=== PATIENT | female | born 1995 | race Caucasian/White ===

== ENCOUNTER 2017-03-02 10:44 | Emergency (ER) | payer OTHER ==
[~2017-03-02] VITALS: Ht 167.6 cm; Wt 68.0 kg
[2017-03-02] MEDS ORDERED: IBUPROFEN400 MG PO (10:57)
--- NOTE | 2017-03-03 08:18 | EKG ---
[facility] [address] [facility] [place] [address] Signed Normal sinus rhythm Normal ECG No previous ECGs available Confirmed by VICKI EDMOND MD ([id number] on 03/03/2017 8:17:49 AM Electronically Signed By: VICKI EDMOND MD 03/03/17 0818 PATIENT NAME: SAUL NICHOLS Electrocardiogram DATE OF : [birth year] PHYSICIAN: VICKI EDMOND MD REPORT #: [id number] REPORT IS CONFIDENTIAL AND NOT TO BE RELEASED WITHOUT AUTHORIZATION
== END 2017-03-02 12:05 | disposition home or self-care (01) ==
LOC: ED 10:44
DX: R10.13 Epigastric pain (principal); Z90.49 Acquired absence of other specified parts of digestive tract
CPT/HCPCS: 93005; 93010; 99283

== ENCOUNTER 2019-12-06 15:24 | Inpatient (IN) | payer OTHER ==
[~2019-12-06] VITALS: Ht 175.3 cm; Wt 108.0 kg
--- OUTSIDE RECORDS SUMMARY | ~2019-12-06 | XMS | Encounter Summary ---
Demographics + + + | Address | [address] | | | [place] [address] | + + + | Home Phone | | + + + | Preferred Language | Unknown | + + + | Marital Status | | + + + | Zoroastrian Affiliation | [id number] | + + + | Race | Unknown | + + + | Ethnic Group | Unknown | + + + Author + + + | Author | [facility] | | | and [place] | + + + | Organization | [facility] | | | and [place] | + + + | Address | Unknown | + + + | Phone | Unavailable | + + + Support + + + + + | Name | Relationship | Address | Phone | + + + + + | Trevin Rocha | ECON | [address] | | | | | [place] [address] | | + + + + + Care Team Providers + +------+ + | Care Dietary Cook Name | Role | Phone | + +------+ + | Freddie Sears DO | PCP | | + +------+ + Reason for Referral (Routine) +--------+--------+ + + + + | Status | Reason | Specialty | Diagnoses / | Referred By | Referred To | | | | | Procedures | Contact | Contact | +--------+--------+ + + + + | Closed | | | Diagnoses | [facility], | | | | | | Delivery | Francis Balderrama MD | | | | | | normal | [address] | | | | | | Procedures | [address] | | | | | | DME: Breast | [place], | | | | | | [place] | [place] | | | | | | | [address] | | | | | | | Phone: | | | | | | | [phone] | | | | | | | Fax: | | | | | | | [phone] | | +--------+--------+ + + + + Evaluate & Treat (Routine) +--------+ + + + + + | Status | Reason | Specialty | Diagnoses / | Referred By | Referred To | | | | | Procedures | Contact | Contact | +--------+ + + + + + | Closed | Specialty | | Diagnoses | [facility], | | | | Services | Services / | Delivery | Francis Balderrama MD | | | | Required | | normal | [address] | | | | | and | | [address] | | | | | | | [place], | | | | | | | [place] | | | | | | | [address] | | | | | | | Phone: | | | | | | | [phone] | | | | | | | Fax: | | | | | | | [phone] | | +--------+ + + + + + (Routine) +--------+ + + + + + | Status | Reason | Specialty | Diagnoses / | Referred By | Referred To | | | | | Procedures | Contact | Contact | +--------+ + + + + + | Closed | Specialty | | Diagnoses | [facility], | | | | Services | and | Delivery | Francis Balderrama MD | | | | Required | | normal | [address] | | | | | | | [address] | | | | | | | [place], | | | | | | | [place] | | | | | | | [address] | | | | | | | Phone: | | | | | | | [phone] | | | | | | | Fax: | | | | | | | [phone] | | +--------+ + + + + + Reason for Visit Auth/Cert +--------+--------+ + + + + | Status | Reason | Specialty | Diagnoses / | Referred By | Referred To | | | | | Procedures | Contact | Contact | +--------+--------+ + + + + | | | | | | | +--------+--------+ + + + + Encounter Details +--------+ + + + + | Date | Type | Department | Care Team | Description | +--------+ + + + + | 05/08/ | Hospital | [facility] | Francis Plata | Delivery normal | | 2016 - | Encounter | [facility] | F, MD [address] | (Primary Dx) | | | | [address] | [address] [place], [place] | | | 05/10/ | | [place], [place] | [address] | | | 2015 | | [address] | [phone] | | | | | [phone] | | | +--------+ + + + + Social History + +-------+ +--------+------+ | Tobacco Use | Types | Packs/Day | Years | Date | | | | | Used | | + +-------+ +--------+------+ | Never Smoker | | | | | + +-------+ +--------+------+ + +---+---+---+ | Smokeless Tobacco: | | | | | Never Used | | | | + +---+---+---+ + + +---------+ + | Alcohol Use | Drinks/Week | oz/Week | Comments | + + +---------+ + | No | | | | + + +---------+ + + + + | Sex Assigned at | Date Recorded | | | | + + + | Not on file | | + + + documented as of this encounter Last Filed Vital Signs + + + + + | Vital Sign | Reading | Time Taken | Comments | + + + + + | Blood Pressure | 131/66 | 05/10/2016 8:00 PM | | | | | PST | | + + + + + | Pulse | 87 | 05/10/2016 8:00 PM | | | | | PST | | + + + + + | Temperature | 36.9 C (98.4 F) | 05/10/2016 8:00 PM | | | | | PST | | + + + + + | Respiratory Rate | 18 | 05/10/2016 8:00 PM | | | | | PST | | + + + + + | Oxygen Saturation | 98% | 05/09/2016 4:21 PM | | | | | PST | | + + + + + | Inhaled Oxygen | - | - | | | Concentration | | | | + + + + + | Weight | 104.3 kg (230 lb) | 05/08/2016 7:46 AM | | | | | PST | | + + + + + | Height | 175.3 cm (5' 9") | 05/08/2016 7:10 AM | | | | | PST | | + + + + + | Body Mass Index | 33.97 | 05/08/2016 7:10 AM | | | | | PST | | + + + + + documented in this encounter Discharge Summaries Liliam Degroot DO - 05/10/2016 8:35 AM PST DISCHARGE SUMMARY-OBSTETRICS Date of Admission: 05/08/2016 Date of Discharge: 05/10/2016 ATTENDING CLINICIAN: Francis Plata MD [employer] BUSINESS SEGMENT LEADER: Freddie Sears DO HISTORY OF PRESENT ILLNESS 21 y.o. with IUP @ 41 wks presents for IOL for late term. HOSPITAL COURSE: Fran Roche is a 21 y.o.-year-old, now female (Estimated Date of Deliv arnaldo: None noted.) who had a delivered by Vaginal, Spontaneous Delivery . At 05/08/2016 153 8 Fran bore a living male 3.339 kg (7 lb 5.8 oz) infant, . scores were 7 /9 a t one and five minutes respectively. Estimated Blood loss was WNL. Her labor course was uncomplicated. Her course was unremarkable. Pain was well controlled and she was ambulating we ll without any difficulty. She had normal bowel an urinary function. Her vital signs were stable and afebrile. Nursing was going well. She was discharged home in stable condition . She was given written post operative instructions in regards to her activity level and haynes itations. DISPOSITION: home CONDITION UPON DISCHARGE: stable DISCHARGE MEDICATIONS: Discharge Medications New Medications Details ibuprofen 600 MG tablet Take 1 tablet by mouth every 8 hours as needed for Pain. aka: ADVIL,MOTRIN Unchanged Medications Details 27-0.8 mg multivitamin tablet Take 1 tablet by mouth Daily. Discontinued Medications PERMETHRIN EX promethazine 25 mg tablet aka: PHENERGAN There is no immunization history for the selected administration types on file [facility]. FOLLOWUP: 6 weeks PRECAUTIONS: Pelvic rest for 6 weeks DIET: Regular Electronically Signed by: Liliam Degroot DO 05/10/2016 8:35 Francis Jeffries MD - 05/09/2016 5:59 AM PST DISCHARGE SUMMARY-OBSTETRICS Date of Admission: 05/08/2016 Date of Discharge: 05/09/2016 ATTENDING CLINICIAN: Francis Plata MD [employer] BUSINESS SEGMENT LEADER: Freddie Sears DO HISTORY OF PRESENT ILLNESS 21 y.o. Unknown presented for postdates induction of labor. HOSPITAL COURSE: Fran Roche is a 21 y.o.-year-old, now female (Estimated Date of Deliv arnaldo: None noted.) who had a delivered by Vaginal, Spontaneous Delivery . At 05/08/2016 153 8 Fran bore a living male 3.339 kg (7 lb 5.8 oz) infant, . scores were 7 /9 a t one and five minutes respectively. Estimated Blood loss was normal. Her labor course was uncomplicated. Her course was unremarkable. Pain was well controlled and she was ambulating we ll without any difficulty. She had normal bowel an urinary function. Her vital signs were stable and afebrile. Nursing was going well. She was discharged home in stable condition . She was given written post operative instructions in regards to her activity level and haynes itations. DISPOSITION: home CONDITION UPON DISCHARGE: stable DISCHARGE MEDICATIONS: Discharge Medications New Medications Details ibuprofen 600 MG tablet Take 1 tablet by mouth every 8 hours as needed for Pain. aka: ADVIL,MOTRIN Unchanged Medications Details 27-0.8 mg multivitamin tablet Take 1 tablet by mouth Daily. Discontinued Medications PERMETHRIN EX promethazine 25 mg tablet aka: PHENERGAN There is no immunization history for the selected administration types on file [facility]. FOLLOWUP: 6 weeks PRECAUTIONS: Pelvic rest for 6 weeks DIET: Regular Electronically Signed by: Francis Plata MD 05/09/2016 5:59 documented in this encounter Discharge Instructions Instructions Velia Lewis RN - 05/10/2016POSTPARTUM DISCHARGE INSTRUCTIONS Warning Signs Check List Notify your clinician immediately if you are experiencing any of the following: Heavy bleeding from the vagina (blood is bright-red and soaks a pad in an hour or less) Normal bleeding decreases in amount over time and is: Bright-red (lasts two to three days). Pinkish or brown (lasts from about the third day to the tenth day). Creamy or yellow (usually lasts one to two weeks). Discharge from the vagina that has a bad odor. Temperature over 100.4 (38 C) or you feel cold and have the chills (you are shiv ering). Urination that is painful, difficult, or too frequent. Difficulty having a bowel movement. Painful, very red, and swollen incision or leaking of any fluids. Breasts that are full and or/painful (swollen, hot, tight, itchy, lumpy, shiny, flat nip ples, or sore spots with flu-like symptoms). Pain that becomes worse and unrelieved by medication. Trouble breathing, dizziness, or faintness. Crying spells or mood swings that feel out of control. Pain, redness, warmth or firmness in the lower calf. Unusual or excessive swelling in your face or hands. Severe or constant headaches. Blurred vision or spots in front of your eyes. Sudden weight gain of more than one pound a day for several days. Persistent pain in the upper right part of your abdomen. Activity/Exercise Do not drive while you are taking narcotics. If you had a section, try driving maneuvers while parked to ensure no increase in incisional pain. Gradually increase your daily activities until you are back to your normal routine. Rest frequently. Remember to continue to drink plenty of fluids and eat frequently if yo u are . Heavy lifting or other strenuous exertion is unlikely to disrupt your incision or lacera tion but it may cause an increase in pain. Your provider will tell you if additional restric tions apply to you. Bowels and Regularity constipation is common; you make take Docusate sodium or Milk of Magnesia to alleviate discomfort Painful bowel movements or rectal pain may result from hemorrhoids; use Tucks and/or top ical treatment like Anusol-HC. Sitz baths can also help. Normal Bleeding Vaginal spotting may last up to six weeks. It is important that you change your pad on a regular basis. Your menstrual period may occur as early as six weeks to two months after your delivery. Care of Stitches You should feel less discomfort every day from your stitches. Perineal stitches will dissolve within 2-4 weeks. You may shower or bathe with stitches; drip plain or soapy water over the incision and d ry gently with a clean towel. If you have zenia you may shower (no tub bathing), and dry g ently with a clean towel. If you had any zenia that were not removed during your hospitalization they will need to be removed in your provider's office. Steri-strips may fall off on their own or can be removed at post-op visit. Sex/Douching/Tampons Do not place anything in the vagina for the first six weeks after delivery. Your healthcare provider may advise you to wait up to six weeks for intercourse. Once th e bleeding has stopped, it is alright to have intercourse if you feel ready. Keep in mind yo u are at risk of getting . You may find your vagina feels dry, making sex uncomfortable. This can last several errol hs due to changing hormone levels. To help lubricate your vagina, you may purchase a waterso luble lubricant (e.g., Astroglide) from your local drug store. This will help make intercour se more comfortable. AttachmentsThe following attachments cannot be sent through Care Everywhere., BREAST C ARE AFTER (ALBANIAN)YOUR MILK, EXPRESSING (ALBANIAN)EXPRESSED MILK, STORING (ALBANIAN)document ed in this encounter Medications at Time of Discharge + + + +---------+ + + | Medication | Sig | Dispensed | Refills | Start | End Date | | | | | | Date | | + + + +---------+ + + | ibuprofen | Take 1 tablet by | 30 | 1 | 05/09/20 | | | (ADVIL,MOTRIN) 600 | mouth every 8 hours | tablet | | 16 | 9 | | MG tablet | as needed for Pain. | | | | | + + + +---------+ + + | 27-0.8 mg | Take 1 tablet by | | 0 | | | | multivitamin tablet | mouth Daily. | | | | 9 | + + + +---------+ + + documented as of this encounter Progress Notes Liliam Degroot DO - 05/10/2016 8:31 AM PSTObstetrjones Progres s Note Subjective: Patient doing well without any concerns Pain: minimal : difficulty with latch, using sullivan Lochia: Minimal Ambulating: Without any difficulty or dizziness Passing flatus. Baby is staying today for jaundice. Maternal VS's: BP: 111/56 mmHg Pulse: 72 Temp: 36.3 C (97.3 F) Exam: General: No acute distress, baby at bedside under bili lights CV: RRR Lungs: CTA Abdomen: Soft, non-tender, non-distended Fundus: Firm, below the umbilicus Extremities: No calf tenderness, appropriate edema Assesment/Plan: Day #2 s/p normal spontaneous vaginal delivery -recovering well stable for discharge -will discharge to outpatient boarder status Electronically Signed by: Liliam Degroot DO 05/10/2016 8:32 Francis Clemente MD - 05/09 5:57 AM PSTObstetrics Progress Note Subjective: Patient doing well without any concerns Pain: Well controlled : Needing some help Lochia: Minimal Ambulating: Without any difficulty or dizziness Patient requests discharge home Maternal VS's: BP: 119/65 mmHg Pulse: 68 Temp: 36.7 C (98 F) Exam: General: No acute distress, baby at bedside Abdomen: Soft, non-tender, non-distended Fundus: Firm, below the umbilicus Extremities: No calf tenderness, appropriate edema AssesmentPlan: Day #1 s/p normal spontaneous vaginal delivery recovering well stable for discha rge Some trouble w/ - assist today -d/c home with instructions and follow-up scheduled Electronically Signed by: Francis Plata MD 05/09/2016 5:57 Francis Clemente MD - 05/08/2016 2:25 PM PS TCtx's strong. SVE: 5/100/+1 per RN @1400 FHT-continued good LTV,occa accels,intermittent tracing, occa variable decels ---> cont same Francis Dial MD - 05/08/2016 12:36 PM PSTThe patient reports that her contractions are v arnaldo strong over the past hour or so. Her oxytocin is at 10. She has been sometime in the hot tub. The nurse just checked her and said she was 3/100/+1/vertex. She is lopez every 2-3 minutes. She is receiving penicillin for GBS. Her tracing shows a normal baseline with excellent variability. She is having sponta neous accelerations and we are seeing frequent but not repetitive mild variable deceleration s. Impression: Overall stable fetus frequent category 2 tracing but with continued good variability. Entering active labor strong uterine contractions GBS positive status post penicillin Plan: Continue oxytocin. Continuous monitoring. Continue with penicillin I anticipate a vaginal . 1 2:39 PM Francis Clemente MD - 05/08/2016 8:56 AM PSTPt c/o mild almost moderate UCtx. Ctx q 2-3 min-not tracing well sve not rechecked Pitocin @6 Variable decels noted earlier-resolved w/ position change ---> Cont. same doc umented in this encounter H&P Notes Francis Plata MD - 05/08/2016 7:44 AM PST OB Admission History & Physical PATIENT NAME: Fran Roche : 1995 ADMISSION DATE: 05/08/2016 6:36 REASON FOR ADMISSION:21 yo G1 @ 41 weeks. GBS+. Admit for postdates indxn. 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 at Unknown presents in active labor. She reports good movements and denies loss of fluid or vaginal bleeding. Review of Systems: Obstetrical: Patient denies headaches, visual changes, or epigastric pain Constitutional: Negative for fever, chills and activity change. Head/Ears: Negative for dizziness, lightheadedness. Respiratory: Negative for chest tightness and shortness of breath. Cardiovascular: Negative for chest pain and leg swelling. Gastrointestinal: Negative for diarrhea, constipation and abdominal distention. Genitourinary: Negative for dysuria and frequency. Musculoskeletal: Negative for back pain and joint swelling. Neurological: Negative for tremors and weakness. Hematological: Does not bruise/bleed easily. Psychiatric/Behavioral: Negative for sleep disturbance and dysphoric mood. Past Medical History: No past medical history on file. Surgical History: No past surgical history on file. Family History: No family history on file. Prior To Admission Medications: Prescriptions prior to admission Medication Sig Dispense Refill PERMETHRIN EX LOTN - as directed 27-0.8 mg multivitamin tablet Take 1 tablet by mouth Daily. promethazine (PHENERGAN) 25 mg tablet Take 1 tablet by mouth every 4 hours as needed. 2 0 tablet 0 Allergies: No Known Allergies Social History: The pt reports that she has never smoked. She has never used smokeless tobacco. She report s that she does not drink alcohol or use illicit drugs. LABS: PHYSICAL EXAM: Vital Signs on Arrival: Temp: 36.6 C (97.9 F) Pulse: 88 Resp: 16 SpO2: 99 % Vitals Signs (most recent): Temp: 36.6 C (97.9 F) Pulse: 88 Resp: 16 SpO2: 99 % Admission Weight: Weight: 104.327 kg (230 lb) General: Alert and oriented HEENT: No abnormality noted Lungs: Clear, no respiratory distress Heart: Regular rate and rhythm, Abdomen: Gravid, nontender, heart tones obtained Extremities: Trace edema, normal pulses Estimated Weight: 3600gm Monitorin moderate variability no decelerations, Category 1 Moriarty: uterine contractions-occa Vaginal Exam (Last assessment): 2.5/90/0-+1. AROM scant clear fluid IMPRESSION: 21 y.o. @41 weeks PLAN: Amniotomy/Pitocin Indxn PCN for GBS Anticipate documented in this encounter Consult Notes Khushbu nA RN - 05/08/2016 5:36 PM PSTThe mother shown how to support her baby during . The was able to obtain and maintained his latch. The mother i s able to express colostrum easily. The infant swallowed with every 2 to 4 suckles. The mot her encouraged to continue to offer both breasts at each feeding, to feed the infant per dem and and to wait no longer then three hours between feedings. documented in this encounter Miscellaneous Notes Plan of Care - Monica Wooten RN - 05/10/2016 11:21 PM PSTProblem: Patient Care Ov erview (Adult) Goal: Care Team Goals & Evaluation PROBLEM-RELATED GOALS: Pt will maintain pain goal of 3/10 using pharmacological and non pharmacological methods Pt will remain hemodynamically stable. Pt will remain free of signs and symptoms of infection STRATEGY TO ACHIEVE GOALS: 1. Support Life/Role Transition (PER CPG) Develop trust relationship/rapport Use a family-focused approach Incorporate cultural beliefs/rituals/practices Encourage/answer questions Provide reassurance regarding infant s well-being Involve patient/partner in decision making Facilitate private time Encourage attachment behaviors; Allow parent(s) to provide care when possible 2. Minimize/Manage Infection Risk (PER CPG) Promote hand and personal hygiene Provide aseptic incision care Discontinue indwelling urethral catheter as soon as possible Assist to void/Encourage frequent voiding Monitor for fundal displacement/palpable bladder Promote adequate fluid and nutritional intake. 3. Prevent/Manage DVT/VTE Risk (PER CPG) Encourage/assist with early ambulation. Assess for VTE risk utilizing a standardized tool Initiate/maintain compression therapy Encourage both active and passive leg exercises while in bed, if unable to ambulate 4. Monitor/Manage Bleeding (PER CPG) Encourage early Watch for changes in blood pressure, heart rate and urine output Continue uterine fundal massage, if fundus remains boggy Anticipate administration of uterotonic medications Accurately assess amount of blood loss (e.g., weigh perineal pads) Check for pooling on underpad RESTRAINT-RELATED GOALS: STRATEGIES TO ACHIEVE RESTRAINT GOALS: Goal Evaluation: Patient has denied pain. Rx for pain medication given earlier. Spouse filled. Discharge education given. Pt reports understanding. Fundus is firm u-1 bleeding is light. Denies d izziness and lightheadedness when ambulating. Independent with self care. No s/s of infecti on. lan of Care - Stephanie Ervin RN - 05/09/2016 5:42 PM PSTProblem: Patient Care Overview (Adult) Goal: Care Team Goals & Evaluation PROBLEM-RELATED GOALS: Pt will maintain pain goal of 3/10 using pharmacological and non pharmacological methods Pt will remain hemodynamically stable. Pt will remain free of signs and symptoms of infection STRATEGY TO ACHIEVE GOALS: 1. Support Life/Role Transition (PER CPG) Develop trust relationship/rapport Use a family-focused approach Incorporate cultural beliefs/rituals/practices Encourage/answer questions Provide reassurance regarding s well-being Involve patient/partner in decision making Facilitate private time Encourage attachment behaviors; Allow parent(s) to provide care when possible 2. Minimize/Manage Infection Risk (PER CPG) Promote hand and personal hygiene Provide aseptic incision care Discontinue indwelling urethral catheter as soon as possible Assist to void/Encourage frequent voiding Monitor for fundal displacement/palpable bladder Promote adequate fluid and nutritional intake. 3. Prevent/Manage DVT/VTE Risk (PER CPG) Encourage/assist with early ambulation. Assess for VTE risk utilizing a standardized tool Initiate/maintain compression therapy Encourage both active and passive leg exercises while in bed, if unable to ambulate 4. Monitor/Manage Bleeding (PER CPG) Encourage early Watch for changes in blood pressure, heart rate and urine output Continue uterine fundal massage, if fundus remains boggy Anticipate administration of uterotonic medications Accurately assess amount of blood loss (e.g., weigh perineal pads) Check for pooling on underpad RESTRAINT-RELATED GOALS: STRATEGIES TO ACHIEVE RESTRAINT GOALS: Outcome: Improving Goal Evaluation: Fran has denied pain with use of routine ibuprofen. She demonstrates hemodynamic stabil ity with fundus remaining firn, flow lightening, and vitals stable. She has established an i mproved feeding plan for her baby and is now and pumping with evidence of good colostrum supply. lan of Care - Kayla Pinto RN - 05/09/2016 4:14 AM PSTProblem: Patient Care Overview (Adult) Goal: Care Team Goals & Evaluation PROBLEM-RELATED GOALS: Pt will maintain pain goal of 3/10 using pharmacological and non pharmacological methods Pt will remain hemodynamically stable. Pt will remain free of signs and symptoms of infection STRATEGY TO ACHIEVE GOALS: 1. Support Life/Role Transition (PER CPG) Develop trust relationship/rapport Use a family-focused approach Incorporate cultural beliefs/rituals/practices Encourage/answer questions Provide reassurance regarding infant s well-being Involve patient/partner in decision making Facilitate private time Encourage attachment behaviors; Allow parent(s) to provide care when possible 2. Minimize/Manage Infection Risk (PER CPG) Promote hand and personal hygiene Provide aseptic incision care Discontinue indwelling urethral catheter as soon as possible Assist to void/Encourage frequent voiding Monitor for fundal displacement/palpable bladder Promote adequate fluid and nutritional intake. 3. Prevent/Manage DVT/VTE Risk (PER CPG) Encourage/assist with early ambulation. Assess for VTE risk utilizing a standardized tool Initiate/maintain compression therapy Encourage both active and passive leg exercises while in bed, if unable to ambulate 4. Monitor/Manage Bleeding (PER CPG) Encourage early Watch for changes in blood pressure, heart rate and urine output Continue uterine fundal massage, if fundus remains boggy Anticipate administration of uterotonic medications Accurately assess amount of blood loss (e.g., weigh perineal pads) Check for pooling on underpad RESTRAINT-RELATED GOALS: STRATEGIES TO ACHIEVE RESTRAINT GOALS: Outcome: Improving Goal Evaluation: Fran is doing all of baby care, denies needing assistance. Requested to bottle feed bab y. Encouraged her to continue with . Teaching done on benefits of . Pt reports feeling overwhelmed and tired. Plans on bottle feeding for now and will see how she feels in am. Baby to nursery for parental rest. Denies pain, FF/U with mod -light vag b leeding. lan of Care - Julia keithtylerKayla RN - 05/08/2016 9:48 PM PSTFran has beendoing all for baby care, atte ntive to baby's needs. Asking appropriate questions. lan of Care - Pablo Mcmahon RN - 05/08/2016 6:51 PM PSTPt showered and moved to post room. at bedside. &D Delivery Note - Francis Plata MD - 4:03 PM PST OBSTETRICAL DELIVERY NOTE Fran Roche : 1995 ADMISSION DATE AND TIME05/08/2016 6:36 DELIVERY SUMMARY Information for the patient's : Makenzie Roche [[id number]] Delivery Information for Makenzie Roche Labor Events: Rupture Date: 05/08/2016 Rupture Time: 724 Rupture Type: Artificial Rupture Of Membranes Fluid Color: Clear Labor Type: Induction - without cervical ripening Complications: Antibiotics? Yes Antibiotic: Antibiotic indication: Maternal Steroids? No Maternal Steroid: Induction: Oxytocin Induction indications: Greater than or equal to 41 weeks Induction comments: Delivery: Delivery Type: Vaginal, Spontaneous Delivery Delivery Type Comments: Presentation/Position: Presentation: Vertex Position: Lacerations: Episiotomy: Perineal lacerations: 1st Perineal lacerations repaired? Yes Blood Loss: Blood loss (ml) Anesthesia/Analgesia method: None Placenta: Placenta date/time: 05/08/2016 1542 Removal: Spontaneous Appearance: Intact Cultures obtained: No Placenta comments: Cord: Umbilical cord: # of vessels: 3 Vessels Delayed cord clamping: Yes Cord comments: Cord gases sent: No Cord blood disposition: Lab Stem cell collection: No Umbilical cord complications: Cord Intervention: Clamped & cut: Reduced: Cord around: Number of loops: Providers: Delivery Clinician: Francis Plata Other Providers: Pablo Mcmahon Taryn J Delivery Nurse Delivery Nurse : Sex & GA: male Gestational Age: <None> Date/Time of : 05/08/2016 / 1538 Measurements: Weight: 7 lb 5.8 oz (3339 g) Height: 21.5" Head circumference: 34.9 cm Chest circumference: 33 cm Living?: Yes Resuscitation: Resuscitation comments: APGARS One minute Five minutes Ten minutes Skin color: 0 1 Heart rate: 2 2 Grimace: 2 2 Muscle tone: 2 2 Breathin 2 Totals: 7 9 Francis Plata MD The patient is a 21-year-old G1 now P1. She presented at 41 weeks for a postdates labor in duction. She was 2 cm ddilated upon presentation. This morning, I performed amniotomy and clear fluid was noted. She was started on oxytocin. She had good variability throughout l abor but did have frequent variable decelerations. She did make steady progress through lab or. She made it to complete dilation and began to push Effectively. During the course of stage I labor, she received IV analgesics for pain relief only. I was called and she was 2 pushes away from delivery. She delivered a viable male over an intact perineum. After deli very of the head, no nuchal cord was noted. The anterior and posterior shoulders delivered without difficulty followed by rest the body. After delivery of the , the child was placed on the maternal abdomen. After a little over minute, the cord was doubly clamped an d cut. A three-vessel cord was noted. Approximately 4 minutes after delivery, her placenta delivered in a controlled fashion. The placenta was intact. She did suffer bilateral vagi nal lacerations first degree that were repaired with 3-0 Vicryl. Normal blood loss. No co mplications. lan of Narcisa - Pablo Mcmahon RN - 05/08/2016 3:48 PM PST15:38 Spontaneous vaginal delivery of vigorous viable boy. 15:41 Spontaneous delivery of intact placentaElectronically signed by AMITA Sage t 05/08/2016 5:22 PM PSTPlan of Eva Das RN - 05/08/2016 1:09 PM PSTFran is in the [facility] with the telemetry FHR dissappears during UC comes To the baseline. P STPlan of Pablo Fan RN - 05/08/2016 11:28 AM [facility]Pt [facility] Family at bedside. RX for pain with Fentanyl 50 jeff, IV. lan of Pablo Fan RN - 05/08/2016 10:01 AM PSTPt up walking in carbajal, telemetry EFM monitoring on. lan of Pablo Fan RN - 05/08/2016 9:[address] Plata re: heart rate tracing lan Pablo Lowe RN - 05/08/2016 8 :[address] Plata re: heart rate tracing lan of Pablo Fan RN - 05/08/2016 6 :45 AM PSTPt declines epidural at this time, education provided. Continues to decline. Con sent for induction on in chart 11: 21 AM PSTdocumented in this encounter Plan of Treatment + + +--------+ + + | Name | Type | Priori | Associated Diagnoses | Order Schedule | | | | ty | | | + + +--------+ + + | Amb referral to | Outpatient | Routin | Delivery normal | 1 Occurrences | | | Referral | e | | starting 05/09/2016 | | | | | | until 05/08/2017 | + + +--------+ + + | Ambulatory referral | Outpatient | Routin | Delivery normal | 1 Occurrences | | to | Referral | e | | starting 05/09/2016 | | | | | | until 05/08/2017 | + + +--------+ + + documented as of this encounter Procedures + +--------+ + + + | Procedure Name | Priori | Date/Time | Associated Diagnosis | Comments | | | ty | | | | + +--------+ + + + | CBC NO DIFFERENTIAL | Routin | 05/09/2016 | | Results for this | | | e | 6:27 AM | | procedure are in the | | | | PST | | results section. | + +--------+ + + + | CBC NO DIFFERENTIAL | STAT | 05/08/2016 | | Results for this | | | | 7:17 AM | | procedure are in the | | | | PST | | results section. | + +--------+ + + + | TYPE AND SCREEN | Routin | 05/08/2016 | | Results for this | | | e | 7:17 AM | | procedure are in the | | | | PST | | results section. | + +--------+ + + + | LABS - EXTERNAL SCAN | | 04/08/2016 | | Results for this | | | | 12:00 AM | | procedure are in the | | | | PST | | results section. | + +--------+ + + + documented in this encounter Results CBC no Differential (05/09/2016 6:27 AM PST) + + + + + + | Component | Value | Ref Range | Performed | Pathologist | | | | | At | Signature | + + + + + + | White Blood | 17.2 (H) | 4.0 - 11.0 K/uL | [facility] | | | Cells | | | [facility] | | | | | | [facility] | | | | | [facility] - | | | | | | LABORATORY | | + + + + + + | Red Blood | 4.08 | 3.70 - 5.20 | [facility] | | | Cells | | M/uL | [facility] | | | | | | [facility] | | | | | | [facility] - | | | | | | LABORATORY | | + + + + + + | Hemoglobin | 12.9 | 11.5 - 16.0 | [facility] | | | | | g/dL | [facility] | | | | | | [facility] | | | | | | [facility] - | | | | | | LABORATORY | | + + + + + + | Hematocrit | 37.5 | 34.0 - 47.0 % | [facility] | | | | | | [facility] | | | | | | [facility] | | | | | | [facility] - | | | | | | LABORATORY | | + + + + + + | MCV | 91.9 | 83.0 - 101.0 fL | [facility] | | | | | | [facility] | | | | | | [facility] | | | | | | [facility] - | | | | | | LABORATORY | | + + + + + + | MCH | 31.5 | 28.0 - 35.0 pg | [facility] | | | | | | [facility] | | | | | | [facility] | | | | | | [facility] - | | | | | | LABORATORY | | + + + + + + | MCHC | 34.3 | 32.0 - 36.0 | [facility] | | | | | g/dL | [facility] | | | | | | [facility] | | | | | | [facility] - | | | | | | LABORATORY | | + + + + + + | RDW-CV | 13.1 | <15.0 % | [facility] | | | | | | [facility] | | | | | | [facility] | | | | | | [facility] - | | | | | | LABORATORY | | + + + + + + | Platelet | 197 | 140 - 440 K/uL | [facility] | | | Count | | | [facility] | | | | | | [facility] | | | | | | C[facility] - | | | | | | LABORATORY | | + + + + + + | MPV | 9.8 | fL | [facility] | | | | | | [facility] | | | | | | [facility] | | | | | | [facility] - | | | | | | LABORATORY | | + + + + + + + + | Specimen | + + | Blood | + + + + + + + | Performing | Address | City/State/Zipcode | Phone Number | | Organization | | | | + + + + + | [facility] | [address] | [place] | [phone] | | [facility] | | [address] | | | - LABORATORY | | | | + + + + + Type and Screen (05/08/2016 7:17 AM PST) + + + + + + | Component | Value | Ref Range | Performed | Pathologist | | | | | At | Signature | + + + + + + | ABO | A | | [facility] | | | | | | [facility] | | | | | | [facility] | | | | | | C[facility] - | | | | | | BLOOD BANK | | + + + + + + | Rh Type | Positive | | [facility] | | | | | | [facility] | | | | | | MEDICAL | | | | | | C[facility] - | | | | | | BLOOD BANK | | + + + + + + | Antibody | Negative | | [facility] | | | Screen | | | [facility] | | | | | | [facility]ICAL | | | | | | CENTER - | | | | | | BLOOD BANK | | + + + + + + + + | Specimen | + + | Blood specimen | | (specimen) | + + + + + + + | Performing | Address | City/State/Zipcode | Phone Number | | Organization | | | | + + + + + | [facility] | [address] | [place] | | | [facility] | | [address] | | | - BLOOD BANK | | | | + + + + + CBC no Differential (05/08/2016 7:17 AM PST) + +-------+ + + + | Component | Value | Ref Range | Performed | Pathologist | | | | | At | Signature | + +-------+ + + + | White Blood | 9.7 | 4.0 - 11.0 K/uL | [facility] | | | Cells | | | [facility] | | | | | [facility] | | | | | | [facility] - | | | | | | LABORATORY | | + +-------+ + + + | Red Blood | 4.42 | 3.70 - 5.20 | [facility] | | | Cells | | M/uL | [facility] | | | | | | [facility]ICAL | | | | | | CENTER - | | | | | | LABORATORY | | + +-------+ + + + | Hemoglobin | 14.3 | 11.5 - 16.0 | [facility] | | | | | g/dL | [facility] | | | | | | MEDICAL | | | | | | CENTER - | | | | | | LABORATORY | | + +-------+ + + + | Hematocrit | 40.2 | 34.0 - 47.0 % | [facility] | | | | | | [facility] | | | | | | [facility] | | | | | | CENTER - | | | | | | LABORATORY | | + +-------+ + + + | MCV | 90.8 | 83.0 - 101.0 fL | [facility] | | | | | | [facility] | | | | | | [facility] | | | | | | CENTER - | | | | | | LABORATORY | | + +-------+ + + + | MCH | 32.3 | 28.0 - 35.0 pg | [facility] | | | | | | [facility] | | | | | | [facility] | | | | | | CENTER - | | | | | | LABORATORY | | + +-------+ + + + | MCHC | 35.5 | 32.0 - 36.0 | [facility] | | | | | g/dL | [facility] | | | | | | MEDICAL | | | | | | CENTER - | | | | | | LABORATORY | | + +-------+ + + + | RDW-CV | 12.8 | <15.0 % | [facility] | | | | | | [facility] | | | | | | [facility] | | | | | | CENTER - | | | | | | LABORATORY | | + +-------+ + + + | Platelet | 201 | 140 - 440 K/uL | [facility] | | | Count | | | [facility] | | | | | | MEDICAL | | | | | | CENTER - | | | | | | LABORATORY | | + +-------+ + + + | MPV | 9.4 | fL | [facility] | | | | | | [facility] | | | | | | MEDICAL | | | | | | CENTER - | | | | | | LABORATORY | | + +-------+ + + + + + | Specimen | + + | Blood | + + + + + + + | Performing | Address | City/State/Zipcode | Phone Number | | Organization | | | | + + + + + | [facility] | [address] | [place] | [phone] | | [facility] | | [address] | | | - LABORATORY | | | | + + + + + LABS - EXTERNAL SCAN (04/08/2016 12:00 AM PST) + + + | Narrative | Performed At | + + + | Ordered by an | | | unspecified provider. | | + + + documented in this encounter Visit Diagnoses + + | Diagnosis | + + | Delivery normal - Primary Normal delivery | + + documented in this encounter Administered Medications + +--------+ +------+------+------+ | Medication Order | MAR | Action | Dose | Rate | Site | | | Action | Date | | | | + +--------+ +------+------+------+ | benzocaine 20%-menthol | Given | 05/08/20 | | | | | (DERMOPLAST) topical spray | | 16 6:35 | | | | | Topical, EVERY 6 HOURS PRN, Pain, | | PM PST | | | | | Starting Palak 05/08/16 at 1627, | | | | | | | | | | | | | + +--------+ +------+------+------+ +---+---+ | | | +---+---+ + +-------+ +--------+---+---+ | docusate sodium (COLACE) | Given | 05/10/20 | 200 mg | | | | capsule 200 mg 200 mg, Oral, | | 16 9:51 | | | | | NIGHTLY, First dose on Palak | | PM PST | | | | | 05/08/16 at 2100, Hold for loose | | | | | | | stools, | | | | | | + +-------+ +--------+---+---+ +-------+ +--------+---+---+ | Given | 05/09/20 | 200 mg | | | | | 16 8:53 | | | | | | PM PST | | | | +-------+ +--------+---+---+ | Given | 05/08/20 | 200 mg | | | | | 16 8:20 | | | | | | PM PST | | | | +-------+ +--------+---+---+ +---+---+ | | | +---+---+ + +-------+ +---------+---+---+ | fentaNYL (PF) injection 50-100 | Given | 05/08/20 | 100 mcg | | | | mcg 50-100 mcg, Intravenous, | | 16 2:07 | | | | | EVERY 1 HOUR PRN, Pain, Starting | | PM PST | | | | | Palak 05/08/16 at 0708, Maximum | | | | | | | total dose is 200 mcg., Labor and | | | | | | | Delivery | | | | | | + +-------+ +---------+---+---+ +-------+ +--------+---+---+ | Given | 05/08/20 | 50 mcg | | | | | 16 12:33 | | | | | | PM PST | | | | +-------+ +--------+---+---+ | Given | 05/08/20 | 50 mcg | | | | | 16 11:12 | | | | | | AM PST | | | | +-------+ +--------+---+---+ +---+---+ | | | +---+---+ + +-------+ +--------+---+---+ | ferrous sulfate tablet 325 mg | Given | 05/10/20 | 325 mg | | | | 325 mg, Oral, DAILY WITH | | 16 8:26 | | | | | BREAKFAST, First dose on Palak | | AM PST | | | | | 05/08/16 at 1645, | | | | | | + +-------+ +--------+---+---+ +-------+ +--------+---+---+ | Given | 05/09/20 | 325 mg | | | | | 16 10:11 | | | | | | AM PST | | | | +-------+ +--------+---+---+ +---+---+ | | | +---+---+ + +-------+ + +---+---+ | HYDROcodone-acetaminophen | Given | 05/08/20 | 1 tablet | | | | (NORCO) 5-325 mg per tablet 1-2 | | 16 6:35 | | | | | tablet 1-2 tablet, Oral, EVERY 4 | | PM PST | | | | | HOURS PRN, Pain, Starting Palak | | | | | | | 05/08/16 at 1627, If ineffective | | | | | | | or not tolerated, use oxycodone | | | | | | | if ordered., | | | | | | + +-------+ + +---+---+ +---+---+ | | | +---+---+ + +-------+ +--------+---+---+ | ibuprofen (ADVIL,MOTRIN) tablet | Given | 05/09/20 | 800 mg | | | | 800 mg 800 mg, Oral, EVERY 8 | | 16 6:29 | | | | | HOURS PRN, Pain, Starting Palak | | PM PST | | | | | 05/08/16 at 1627, If urine output | | | | | | | is less than 240 mL/8 hours (30 | | | | | | | mL/hr) or if signs of bleeding, | | | | | | | contact MD and hold ibuprofen., | | | | | | | | | | | | | + +-------+ +--------+---+---+ +-------+ +--------+---+---+ | Given | 05/09/20 | 800 mg | | | | | 16 12:25 | | | | | | PM PST | | | | +-------+ +--------+---+---+ | Given | 05/09/20 | 800 mg | | | | | 16 4:31 | | | | | | AM PST | | | | +-------+ +--------+---+---+ +---+---+ | | | +---+---+ + +---------+ +---+-------+---+ | lactated ringers (LR) infusion | New Bag | 05/08/20 | | 125 | | | at 125 mL/hr, Intravenous, | | 16 7:23 | | mL/hr | | | CONTINUOUS, Starting Palak 05/08/16 | | AM PST | | | | | at 0730, Labor and Delivery | | | | | | + +---------+ +---+-------+---+ +---+---+ | | | +---+---+ + +-------+ +---+---+---+ | lanolin ointment Topical, PRN, | Given | 05/08/20 | | | | | Dry Skin, for moist wound | | 16 6:35 | | | | | healing, Starting Palak 05/08/16 at | | PM PST | | | | | 1627, Apply to nipples. May keep | | | | | | | at bed side., | | | | | | + +-------+ +---+---+---+ +---+---+ | | | +---+---+ + +-------+ +------+---+---+ | ondansetron (ZOFRAN) injection | Given | 05/08/20 | 4 mg | | | | 4 mg 4 mg, Intravenous, EVERY 6 | | 16 1:43 | | | | | HOURS PRN, Nausea, Vomiting, | | PM PST | | | | | Starting Palak 05/08/16 at 0708, | | | | | | | First line agent, Labor and | | | | | | | Delivery | | | | | | + +-------+ +------+---+---+ +---+---+ | | | +---+---+ + + + + + +---+ | oxytocin in saline (PITOCIN) 30 | Rate/Dos | 05/08/20 | 10 | 10 mL/hr | | | units/500 mL (60 jeremy-units/mL) | e Change | 16 10:15 | jeremy-un | | | | infusion 0-999 jeremy-units/min | | AM PST | its/min | | | | (0-999 mL/hr), at 0-999 mL/hr, | | | | | | | Intravenous, TITRATED, Starting | | | | | | | [facility] 05/08/16 at 0730, Low Dose | | | | | | | (Cervical Ripening) Management: | | | | | | | Dose 1-4 mU/min. Begin infusion | | | | | | | at 1 mU/min for 60 minutes, | | | | | | | Increase to 2 mU/min for 60 | | | | | | | minutes, Increase to 4 mU/min and | | | | | | | continue at this level until | | | | | | | Clinton score of 7 or more. | | | | | | | Maximum dose for cervical | | | | | | | ripening = 4mU/min. Standard | | | | | | | (Augmentation/Induction) | | | | | | | Management: Dose 0-40 mU/min. | | | | | | | Begin infusion at 1-2 mU/minute. | | | | | | | Increase at no greater than 2 | | | | | | | mU/min every 30 minutes, until | | | | | | | adequate labor. Maximum standard | | | | | | | dose for augmentation/induction | | | | | | | = 20 mU/min. Call provider to | | | | | | | increase above 20 mU/min. Do not | | | | | | | increase above 40 mU/min. Do not | | | | | | | increase rate if there is | | | | | | | tachysystole ( > 5 contractions | | | | | | | in 10 minutes averaged over 30 | | | | | | | minutes) or concern regarding | | | | | | | tracing. For tachysystole, | | | | | | | indications or increased | | | | | | | baseline uterine tone, notify | | | | | | | provider and stop or decrease | | | | | | | oxytocin infusion per unit policy | | | | | | | until the indication has ceased. | | | | | | | Restart the infusion per policy | | | | | | | or at 50% or less of the previous | | | | | | | rate. Third Stage | | | | | | | Management/Immediate : | | | | | | | Dose 0-999 mU/min. Vaginal | | | | | | | delivery: After delivery of | | | | | | | anterior shoulder or placenta, | | | | | | | 350 mL/hr x hour, then 100 | | | | | | | mL/hr x 3.5 hours. May stop after | | | | | | | 4 hours post-delivery. Titrate | | | | | | | to control bleeding. May | | | | | | | discontinue if fundus firm, | | | | | | | bladder not distended and patient | | | | | | | tolerating oral fluids and pain | | | | | | | meds. delivery: | | | | | | | Anesthesia will manage oxytocin | | | | | | | intraoperatively. Post anesthesia | | | | | | | care, 350 mL/hr x hour, then | | | | | | | 100 mL/hr x 3.5 hours. May stop | | | | | | | after 4 hours post-delivery. | | | | | | | Titrate to control bleeding. May | | | | | | | discontinue if fundus firm, | | | | | | | bladder not distended and patient | | | | | | | tolerating oral fluids and pain | | | | | | | meds., Use oxytocin for | | | | | | | management of: Third stage, Labor | | | | | | | and Delivery | | | | | | + + + + + +---+ + + + +---------+---+ | Rate/Dose Change | 05/08/20 | 8 | 8 mL/hr | | | | 16 9:30 | jeremy-un | | | | | AM PST | its/min | | | + + + +---------+---+ | Rate/Dose Change | 05/08/20 | 6 | 6 mL/hr | | | | 16 8:30 | jeremy-un | | | | | AM PST | its/min | | | + + + +---------+---+ +---+---+ | | | +---+---+ + +---------+ + + +---+ | penicillin G potassium 2.5 | New Bag | 05/08/20 | 2.5 | 55 mL/hr | | | Million Units in sodium chloride | | 16 2:24 | Million | | | | 0.9% 50 mL IVPB 2.5 Million | | PM PST | Units | | | | Units, Intravenous, Administer | | | | | | | over 60 Minutes, EVERY 4 HOURS | | | | | | | INTERVAL, First dose on Palak | | | | | | | 05/08/16 at 1115, Starting 4 hours | | | | | | | after loading dose and | | | | | | | continuing until delivery. Keep | | | | | | | in refrigerator., Labor and | | | | | | | Delivery, Indications: GBS | | | | | | | Prophylaxis | | | | | | + +---------+ + + +---+ +---------+ + + +---+ | New Bag | 05/08/20 | 2.5 | 55 mL/hr | | | | 16 11:13 | Million | | | | | AM PST | Units | | | +---------+ + + +---+ +---+---+ | | | +---+---+ + +---------+ + +-------+---+ | penicillin G potassium 5 | New Bag | 05/08/20 | 5 | 100 | | | Million Units in sodium chloride | | 16 7:23 | Million | mL/hr | | | 0.9% 100 mL IVPB 5 Million | | AM PST | Units | | | | Units, Intravenous, Administer | | | | | | | over 60 Minutes, ONCE, [facility] | | | | | | | 05/08/16 at 0730, For 1 dose, | | | | | | | Activate system and mix before | | | | | | | use., Labor and Delivery, | | | | | | | Indications: GBS Prophylaxis | | | | | | + +---------+ + +-------+---+ +---+---+ | | | +---+---+ + +-------+ + +---+---+ | 27-0.8 mg multivitamin | Given | 05/10/20 | 1 tablet | | | | 1 tablet 1 tablet, Oral, DAILY, | | 16 8:26 | | | | | First dose on Palak 05/08/16 at | | AM PST | | | | | 1645, | | | | | | + +-------+ + +---+---+ +-------+ + +---+---+ | Given | 05/09/20 | 1 tablet | | | | | 16 10:10 | | | | | | AM PST | | | | +-------+ + +---+---+ +---+---+ | | | +---+---+ documented in this encounter
--- OUTSIDE RECORDS SUMMARY | ~2019-12-06 | XMS | Encounter Summary ---
Demographics + + + | Address | [address] | | | [place] [address] | + + + | Home Phone | | + + + | Preferred Language | Unknown | + + + | Marital Status | | + + + | Tenriism Affiliation | 1013 | + + + | Race | Unknown | + + + | Ethnic Group | Unknown | + + + Author + + + | Author | [facility] | | | and [place] | + + + | Organization | [facility] | | | and [place] | + + + | Address | Unknown | + + + | Phone | Unavailable | + + + Support + + + + + | Name | Relationship | Address | Phone | + + + + + | Trevin Rocha | ECON | [address] | | | | | [place] [address] | | + + + + + Care Team Providers + +------+ + | Care Tub Tender Name | Role | Phone | + +------+ + | Freddie Sears DO | PCP | | + +------+ + Reason for Visit + + + | Reason | Comments | + + + | Abdominal Pain | | + + + Encounter Details +--------+ + + + + | Date | Type | Department | Care Team | Description | +--------+ + + + + | 06/24/ | Emergency | [facility] | Daniel Soto | Calculus of | | 2017 | | [facility] | José Luis Singh MD | gallbladder without | | | | CENTER [address] | [address] | cholecystitis | | | | [place], [place] | [place], [place] | without obstruction | | | | [address] | [address] | (Primary Dx) | | | | [phone] | | | +--------+ + + + [...] + + + | Blood Pressure | 109/62 | 06/24/2016 10:09 PM | | | | | PST | | + + + + + | Pulse | 69 | 06/24/2016 10:09 PM | | | | | PST | | + + + + + | Temperature | 36.8 C (98.2 F) | 06/24/2016 5:32 PM | | | | | PST | | + + + + + | Respiratory Rate | 18 | 06/24/2016 5:32 PM | | | | | PST | | + + + + + | Oxygen Saturation | 98% | 06/24/2016 10:09 PM | | | | | PST | | + + + + + | Inhaled Oxygen | - | - | | | Concentration | | | | + + + + + | Weight | 96.2 kg (212 lb) | 06/24/2016 5:32 PM | | | | | PST | | + + + + + | Height | 172.7 cm (5' 8") | 06/24/2016 5:32 PM | | | | | PST | | + + + + + | Body Mass Index | 32.23 | 06/24/2016 5:32 PM | | | | | PST | | + + + + + documented in this encounter Discharge Instructions Instructions Ginette Olsen RN - 06/24/2016Return for worsening abdominal pain, [place] sea vomiting fever or other worsening symptoms. Please follow-up with your primary care jac schwarz. Try to maintain a bland diet for the next 3-4 days. AttachmentsThe following attachments cannot be sent through Care Everywhere.GALLSTONES WITH BILIARY COLIC (CONFIRMED) (TAJIK)documented in this encounter Medications at Time of Discharge + + + +---------+ + + | Medication | Sig | Dispensed | Refills | Start | End Date | | | | | | Date | | + + + +---------+ + + | | Take 1-2 tablets by | 15 | 0 | 06/24/19 | | | HYDROcodone-acetamin | mouth every 6 hours | tablet | | 17 | 8 | | ophen (NORCO) 5-325 | as needed for Pain. | | | | | | mg per tablet | | | | | | + + + +---------+ + + | ibuprofen | Take 1 tablet by | 30 | 1 | 05/09/20 | | | (ADVIL,MOTRIN) 600 | mouth every 8 hours | tablet | | 16 | 9 | | MG tablet | as needed for Pain. | | | | | + + + +---------+ + + | ondansetron | Take 1 tablet by | 15 | 0 | 06/24/19 | | | (ZOFRAN ODT) 4 mg | mouth every 6 hours | tablet | | 17 | 8 | | disintegrating | as needed for | | | | | | tablet | Nausea. | | | | | + + + +---------+ + + | 27-0.8 mg | Take 1 tablet by | | 0 | | | | multivitamin tablet | mouth Daily. | | | | 9 | + + + +---------+ + + documented as of this encounter ED Notes Daniel Soto MD - 06/24/2016 6:47 PM PSTFormatting of this note might be d ifferent from the original. [facility] Emergency Department Encounter Note [address] [place] [address] PCP:Freddie Sears DO [phone] eMERGENCY dEPARTMENT eNCOUnter CHIEF COMPLAINT Chief Complaint Patient presents with Abdominal Pain TRIAGE ED Triage Notes Eulalio Soto, RN 06/24/2016 17:32 Band of pain around mid chest worse in upper right quadrant HPI Kassy Roche is a 21 y.o. female who presents pain to the right upper quadran t abdomen. Patient's had some worsening pain in the last 2-3 days. She states it's a band around her mid section just below her chest. She is here for further evaluation. She's had some nausea with this as well. She is woken up in the middle the night with this pain as w ell. She states the pain is quite intense when it comes and goes away within 20-30 minutes. Patient's here for further evaluation. She denies fever or chills. A 21-year-old female s tatus post normal vaginal delivery within the last couple of months. PAST MEDICAL HISTORY No past medical history on file. SURGICAL HISTORY No past surgical history on file. CURRENT MEDICATIONS Previous Medications IBUPROFEN (ADVIL,MOTRIN) 600 MG TABLET Take 1 tablet by mouth every 8 hours as needed f or Pain. 27-0.8 MG MULTIVITAMIN TABLET Take 1 tablet by mouth Daily. ALLERGIES No Known Allergies FAMILY HISTORY No family history on file. SOCIAL HISTORY Social History Social History Marital Status: Single Spouse Name: N/A Number of Children: N/A Years of Education: N/A Social History Main Topics Smoking status: Never Smoker Smokeless tobacco: Never Used Alcohol Use: No Drug Use: No Sexual Activity: Not on file Other Topics Concern Not on file Social History Narrative REVIEW OF SYSTEMS Please see HPI, All systems negative except as marked. Twelve point review of system comp leted my me. PHYSICAL EXAM VITAL SIGNS: Temp: 36.8 C (98.2 F) Pulse: 86 Resp: 18 SpO2: 96 % BP: 127/74 mmHg Constitutional: Well developed, Well nourished, Non-toxic appearance. HENT: Normocephalic, Atraumatic, Bilateral external ears normal, Oropharynx moist, No oral exudates, Nose normal. Neck- Normal range of motion, No tenderness, Supple, No stridor. Eyes: PERRL, EOMI, Conjunctiva normal, No discharge. Respiratory: Normal breath sounds, No respiratory distress, No wheezing, No chest tenderne ss. Cardiovascular: Normal heart rate, Normal rhythm, No murmurs, No rubs, No gallops. GI: Bowel sounds normal, Soft, tenderness right upper quadrant. No rebound tenderness no guarding., No masses, No pulsatile masses. Musculoskeletal: Intact distal pulses, No edema, No tenderness, No cyanosis, No clubbing. Good range of motion in all major joints. No tenderness to palpation or major deformities no mihai. Neurologic: Alert & oriented x 3, Normal motor function, Normal sensory function, No focal deficits noted, no facial assymetry noted. Equal acid painter in all extremities RADIOLOGY sounds shows multiple stones in the gallbladder. Stones appear to be mobile. N o nidia-cholecystic fluid. No results found. LAB Labs Reviewed CBC WITH DIFFERENTIAL - Abnormal; Notable for the following: % Lymphocytes 16.6 (*) All other components within normal limits COMPREHENSIVE METABOLIC PANEL - Abnormal; Notable for the following: AST 71 (*) ALT 78 (*) All other components within normal limits LIPASE - Normal ED COURSE & MEDICAL DECISION MAKING Pertinent Labs & Imaging studies reviewed. (See chart for details) Nursing notes reviewed. Follow-up Information Follow up with Freddie Sears DO. Specialty: Family Medicine - Adult Medicine Contact information: [address] [facility] [address] Follow up with Laura Bajwa MD. Specialty: General Surgery Contact information: [address] Located within [facility] [address] New Prescriptions HYDROCODONE-ACETAMINOPHEN (NORCO) 5-325 MG PER TABLET Take 1-2 tablets by mouth every 6 hours as needed for Pain. ONDANSETRON (ZOFRAN ODT) 4 MG DISINTEGRATING TABLET Take 1 tablet by mouth every 6 hour s as needed for Nausea. Patient this point is otherwise stable. She does not appear to have an infected gallbladde r. I recommend that she follows up with her primary care physician and/or local surgeon. S he is to return for severe worsening symptoms. At this point patient is otherwise stable. Discharge Instructions Return for worsening abdominal pain, nausea vomiting fever or other worsening symptoms. Pl ease follow-up with your primary care physician. Try to maintain a bland diet for the next 3-4 days. Discharge References/Attachments GALLSTONES WITH BILIARY COLIC (CONFIRMED) (TAJIK) FINAL IMPRESSION 1. Calculus of gallbladder without cholecystitis without obstruction Portions of this chart may have been created with [employer] voice recognition software. Occasi onal wrong-word or sound-alike substitutions may have occurred due to the inherent haynes itations of voice recognition software. Please read the chart carefully and recognize, using context, where these substitutions have occurred Daniel Soto MD 06/24/16 2215 documented in this encounter Miscellaneous Notes ED Triage Notes - Eulalio Soto RN - 06/24/2016 5:31 PM PSTBand of pain around mid chest worse in upper right quadrant documented in this encounter Plan of Treatment Not on filedocumented as of this encounter Procedures + +--------+ + + + | Procedure Name | Priori | Date/Time | Associated Diagnosis | Comments | | | ty | | | | + +--------+ + + + | US ABDOMEN LIMITED | STAT | 06/24/2016 | | Results for this | | | | 9:45 PM | | procedure are in the | | | | PST | | results section. | + +--------+ + + + | CBC WITH | STAT | 06/24/2016 | | Results for this | | DIFFERENTIAL | | 7:09 PM | | procedure are in the | | | | PST | | results section. | + +--------+ + + + | LIPASE | STAT | 06/24/2016 | | Results for this | | | | 7:09 PM | | procedure are in the | | | | PST | | results section. | + +--------+ + + + | COMPREHENSIVE | STAT | 06/24/2016 | | Results for this | | METABOLIC PANEL | | 7:09 PM | | procedure are in the | | | | PST | | results section. | + +--------+ + + + documented in this encounter Results US Abdomen Limited (06/24/2016 9:45 PM PST) + + | Specimen | + + | | + + + + + | Narrative | Performed At | + + + | US ABDOMEN LIMITED 06/24/2016 9:45 PM HISTORY: Abdominal pain. | [facility] | | COMPARISON: None. PROTOCOL: Barnard scale and Doppler images of | | | the abdomen. FINDINGS: Gallbladder: Multiple small gallstones are | | | visualized. The gallbladder is partially contracted. The gallbladder | | | wall measures 3 mm, which is normal. Sonographic Malone's sign is | | | absent. The common bile duct measures 3.7 mm, normal. The common | | | hepatic duct measures 2 mm, normal. Liver: Parenchyma and contour | | | are normal. The liver measures 15 cm, which is normal. Pancreas: | | | The pancreas is not well seen due to overlapping bowel gas. Right | | | kidney: Echotexture is normal with no evidence for stone or | | | hydronephrosis. The kidney measures 10.6 x 4.6 x 4.6 cm. Venous | | | structures: There is normal blood flow in the IVC, portal veins, | | | hepatic veins, and splenic vein. IMPRESSION - Multiple small | | | gallstones with no definite evidence for cholecystitis at this time. | | | Dictated and Signed by: Silvino Zamarripa MD Electronically signed: | | | 06/25/2016 8:39 AM | | + + + + + | Procedure Note | + + | Rohit, Rad Results In - 06/25/2016 8:42 AM PST US ABDOMEN LIMITED 06/24/2016 9:45 PM | | | | HISTORY: Abdominal pain. | | | | COMPARISON: None. | | | | PROTOCOL: Barnard scale and Doppler images of the abdomen. | | | | FINDINGS: | | Gallbladder: Multiple small gallstones are visualized. The gallbladder is | | partially contracted. The gallbladder wall measures 3 mm, which is normal. | | Sonographic Malone's sign is absent. | | The common bile duct measures 3.7 mm, normal. The common hepatic duct measures 2 | | mm, normal. | | | | Liver: Parenchyma and contour are normal. The liver measures 15 cm, which is | | normal. | | | | Pancreas: The pancreas is not well seen due to overlapping bowel gas. | | | | Right kidney: Echotexture is normal with no evidence for stone or | | hydronephrosis. The kidney measures 10.6 x 4.6 x 4.6 cm. | | | | Venous structures: There is normal blood flow in the IVC, portal veins, hepatic | | veins, and splenic vein. | | | | IMPRESSION - | | Multiple small gallstones with no definite evidence for cholecystitis at this | | time. | | | | Dictated and Signed by: Silvino Zamarripa MD | | Electronically signed: 06/25/2016 8:39 AM | + + + +---------+ + + | Performing | Address | City/State/Zipcode | Phone Number | | Organization | | | | + +---------+ + + | [facility] | | | | + +---------+ + + Comprehensive Metabolic Panel (06/24/2016 7:09 PM PST) + + + + + + | Component | Value | Ref Range | Performed | Pathologist | | | | | At | Signature | + + + + + + | Na | 139 | 136 - 149 | [facility] | | | | | mmol/L | [facility] | | | | | | MED[facility] | | | | | | CENTER - | | | | | | LABORATORY | | + + + + + + | K | 3.7 | 3.5 - 5.1 | [facility] | | | | | mmol/L | [facility] | | | | | | MEDICAL | | | | | | CENTER - | | | | | | LABORATORY | | + + + + + + | Cl | 107 | 98 - 109 mmol/L | [facility] | | | | | | [facility] | | | | | | MEDICAL | | | | | | CENTER - | | | | | | LABORATORY | | + + + + + + | CO2 | 25 | 24 - 31 mmol/L | [facility] | | | | | | [facility] | | | | | | MEDICAL | | | | | | CENTER - | | | | | | LABORATORY | | + + + + + + | Anion Gap | 7 | 3 - 16 mmol/L | [facility] | | | | | | [facility] | | | | | | [facility] | | | | | | CENTER - | | | | | | LABORATORY | | + + + + + + | Glucose | 100 | 70 - 109 mg/dL | [facility] | | | | | | [facility] | | | | | | MEDICAL | | | | | | CENTER - | | | | | | LABORATORY | | + + + + + + | BUN | 12 | 7 - 18 mg/dL | [facility] | | | | | | [facility] | | | | | | MEDICAL | | | | | | CENTER - | | | | | | LABORATORY | | + + + + + + | Creatinine | 0.97 | 0.60 - 1.30 | [facility] | | | | | mg/dL | [facility] | | | | | | MEDICAL | | | | | | CENTER - | | | | | | LABORATORY | | + + + + + + | eGFR if not | >60Comment: GLOMERULAR | >=60 | [facility] | | | | FILTRATION | mL/min/1.73m2 | [facility] | | | NAURUAN | RATE,ESTIMATED | | MEDICAL | | | | mL/min/1.72j2Nwci than | | CENTER - | | | | 60 Chronic kidney | | LABORATORY | | | | disease,if found over a | | | | | | 3-month period.Less than | | | | | | 15 Kidney failureFor | | | | | | | | | | | | Americans,multiply the | | | | | | calculated GFR by 1.21. | | | | | | | | | | + + + + + + | Calcium | 9.3 | 8.3 - 10.5 | [facility] | | | | | mg/dL | [facility] | | | | | | MEDICAL | | | | | | CENTER - | | | | | | LABORATORY | | + + + + + + | Albumin | 4.1 | 3.2 - 5.0 g/dL | [facility] | | | | | | [facility] | | | | | | MEDICAL | | | | | | CENTER - | | | | | | LABORATORY | | + + + + + + | Bilirubin | 0.8Comment: This is an | 0.1 - 1.5 mg/dL | [facility] | | | Total | appended report. These | | [facility] | | | | results have been | | MEDICAL | | | | appended to a previously | | CENTER - | | | | preliminary verified | | LABORATORY | | | | report. | | | | + + + + + + | Total | 6.9 | 6.0 - 7.8 g/dL | [facility] | | | Protein | | | [facility] | | | | | | MEDICAL | | | | | | CENTER - | | | | | | LABORATORY | | + + + + + + | AST | 71 (H)Comment: This is | 10 - 42 U/L | [facility] | | | | an appended report. | | [facility] | | | | These results have been | | MEDICAL | | | | appended to a previously | | CENTER - | | | | preliminary verified | | LABORATORY | | | | report. | | | | + + + + + + | ALT | 78 (H)Comment: This is | 6 - 45 U/L | [facility] | | | | an appended report. | | [facility] | | | | These results have been | | MEDICAL | | | | appended to a previously | | CENTER - | | | | preliminary verified | | LABORATORY | | | | report. | | | | + + + + + + | Alkaline | 76Comment: This is an | 40 - 110 U/L | [facility] | | | Phosphatase | appended report. These | | [facility] | | | | results have been | | MEDICAL | | | | appended to a previously | | CENTER - | | | | preliminary verified | | LABORATORY | | | | report. | | | | + + + + + + | Globulin | 2.8 | 2.1 - 3.8 g/dL | [facility] | | | | | | [facility] | | | | | | [facility] | | | | | | CENTER - | | | | | | LABORATORY | | + + + + + + | Albumin/Glendy | 1.5 | 0.8 - 2.0 | [facility] | | | bulin Ratio | | | [facility] | | | | | | [facility] | | | | | | CENTER - | | | | | | LABORATORY | | + + + + + + | BUN/Creatin | 12.4 | | [facility] | | | ine Ratio | | | [facility] | | [...] | + + + + + | [facility] | [address] | [place] | [phone] | | [facility] | | [address] | | | - LABORATORY | | | | + + + + + Lipase (06/24/2016 7:09 PM PST) + +-------+ + + + | Component | Value | Ref Range | Performed | Pathologist | | | | | At | Signature | + +-------+ + + + | Lipase | 24 | 0 - 60 U/L | [facility] | | | | | | [facility] | | | | | | [...] ST. | [address] | [place] | [phone] | | [facility] | | [address] | | | - LABORATORY | | | | + + + + + CBC with Differential (06/24/2016 7:09 PM PST) + + + + + + | Component | Value | Ref Range | Performed | Pathologist | | | | | At | Signature | + + + + + + | White Blood | 9.3 | 4.0 - 11.0 K/uL | [facility] | | | Cells | | | [facility] | | | | | | MEDICAL | | | | | | CENTER - | | | | | | LABORATORY | | + + + + + + | Red Blood | 4.52 | 3.70 - 5.20 | [facility] | | | Cells | | M/uL | [facility] | | | | | | MEDICAL | | | | | | CENTER - | | | | | | LABORATORY | | + + + + + + | Hemoglobin | 14.0 | 11.5 - 16.0 | [facility] | | | | | g/dL | [facility] | | | | | | MEDICAL | | | | | | CENTER - | | | | | | LABORATORY | | + + + + + + | Hematocrit | 40.3 | 34.0 - 47.0 % | [facility] | | | | | | [facility] | | | | | | MEDICAL | | | | | | CENTER - | | | | | | LABORATORY | | + + + + + + | MCV | 89.3 | 83.0 - 101.0 fL | [facility] | | | | | | [facility] | | | | | | MEDICAL | | | | | | CENTER - | | | | | | LABORATORY | | + + + + + + | MCH | 30.9 | 28.0 - 35.0 pg | [facility] | | | | | | [facility] | | | | | | MEDICAL | | | | | | CENTER - | | | | | | LABORATORY | | + + + + + + | MCHC | 34.6 | 32.0 - 36.0 | [facility] | | | | | g/dL | [facility] | | | | | | MEDICAL | | | | | | CENTER - | | | | | | LABORATORY | | + + + + + + | RDW-CV | 12.9 | <15.0 % | [facility] | | | | | | [facility] | | | | | | MEDICAL | | | | | | CENTER - | | | | | | LABORATORY | | + + + + + + | Platelet | 245 | 140 - 440 K/uL | [facility] | | | Count | | | [facility] | | | | | | MEDICAL | | | | | | CENTER - | | | | | | LABORATORY | | + + + + + + | MPV | 7.8 | fL | [facility] | | | | | | [facility] | | | | | | MEDICAL | | | | | | CENTER - | | | | | | LABORATORY | | + + + + + + | % | 76.9 | 45.0 - 82.0 % | [facility] | | | Neutrophils | | | [facility] | | | | | | MEDICAL | | | | | | CENTER - | | | | | | LABORATORY | | + + + + + + | % | 16.6 (L) | 20.0 - 45.0 % | [facility] | | | Lymphocytes | | | [facility] | | | | | | MEDICAL | | | | | | CENTER - | | | | | | LABORATORY | | + + + + + + | % Monocytes | 5.1 | 4.0 - 12.0 % | [facility] | | | | | | [facility] | | | | | | MEDICAL | | | | | | CENTER - | | | | | | LABORATORY | | + + + + + + | % | 0.9 | 0.0 - 5.0 % | [facility] | | | Eosinophils | | | [facility] | | | | | | MEDICAL | | | | | | CENTER - | | | | | | LABORATORY | | + + + + + + | % Basophils | 0.5 | 0.0 - 1.0 % | [facility] | | | | | | [facility] | | | | | | [facility] | | | | | | C[facility] - | | | | | | LABORATORY | | + + + + + + | Absolute | 7.10 | 1.80 - 8.50 | [facility] | | | Neutrophils | | K/uL | [facility] | | | | | | [facility] | | | | | | CENTER - | | | | | | LABORATORY | | + + + + + + | Absolute | 1.50 | 0.60 - 3.20 | [facility] | | | Lymphocytes | | K/uL | [facility] | | | | | | MEDICAL | | | | | | CENTER - | | | | | | LABORATORY | | + + + + + + | Absolute | 0.50 | 0.00 - 1.00 | [facility] | | | Monocytes | | K/uL | [facility] | | | | | | MEDICAL | | | | | | CENTER - | | | | | | LABORATORY | | + + + + + + | Absolute | 0.10 | 0.00 - 0.40 | [facility] | | | Eosinophils | | K/uL | [facility] | | | | | | MEDICAL | | | | | | CENTER - | | | | | | LABORATORY | | + + + + + + | Absolute | 0.00 | 0.00 - 0.10 | [facility] | | | Basophils | | K/uL | [facility] | | | | [...] + + + + + | [facility] | [address] | [place] | [phone] | | [facility] | | [address] | | | - LABORATORY | | | | + + + + + documented in this encounter Visit Diagnoses + + | Diagnosis | + + | Calculus of gallbladder without cholecystitis without obstruction - Primary Calculus | | of gallbladder without mention of cholecystitis or obstruction | + + documented in this encounter Administered Medications + +--------+ +-------+------+------+ | Medication Order | MAR | Action | Dose | Rate | Site | | | Action | Date | | | | + +--------+ +-------+------+------+ | famotidine (PEPCID) tablet 20 | Given | 06/24/19 | 20 mg | | | | mg 20 mg, Oral, ONCE, Tue | | 17 7:09 | | | | | 06/24/16 at 1900, For 1 dose | | PM PST | | | | + +--------+ +-------+------+------+ +---+---+ | | | +---+---+ + + + + +---+---+ | HYDROcodone-acetaminophen | Dispense | 06/24/19 | 1 tablet | | | | (NORCO) 5-325 mg per tablet (ER | to Home | 17 10:21 | | | | | Prepack) 1-2 tablet 1-2 tablet, | | PM PST | | | | | Oral, ONCE, 06/24/16 at 2215, | | | | | | | For 1 dose | | | | | | + + + + +---+---+ +---+---+ | | | +---+---+ + + + +------+---+---+ | ondansetron (ZOFRAN ODT) | Dispense | 06/24/19 | 4 mg | | | | disintegrating tablet (ED | to Home | 17 10:20 | | | | | homepack) 4 mg 4 mg, Oral, EVERY | | PM PST | | | | | 6 HOURS PRN, Nausea, Starting | | | | | | | e 06/24/16 at 2210 | | | | | | + + + +------+---+---+ +---+---+ | | | +---+---+ + +-------+ +------+---+---+ | ondansetron (ZOFRAN ODT) | Given | 06/24/19 | 4 mg | | | | disintegrating tablet 4 mg 4 mg, | | 17 7:09 | | | | | Oral, EVERY 1 HOUR PRN, Nausea, | | PM PST | | | | | Vomiting, Starting Thu06/24/16 at | | | | | | | 1855, For 2 doses | | | | | | + +-------+ +------+---+---+ +---+---+ | | | +---+---+ documented in this encounter
--- OUTSIDE RECORDS SUMMARY | ~2019-12-06 | XMS | Encounter Summary ---
Demographics + + + | Address | [address] | | | [place] [address] | + + + | Home Phone | | + + + | Preferred Language | Unknown | + + + | Marital Status | | + + + | Protestant Affiliation | 1013 | + + + | Race | Unknown | + + + | Ethnic Group | Unknown | + + + Author + + + | Author | [facility] | | | and [place] | + + + | Organization | [facility] | | | and [place] | + + + | Address | Unknown | + + + | Phone | Unavailable | + + + Support + + + + + | Name | Relationship | Address | Phone | + + + + + | Trevin Rocha | ECON | [address] | | | | | [place] [address] | | + + + + + Care Team Providers + +------+ + | Care Process Mechanic Name | Role | Phone | + +------+ + PCP | Unavailable | + +------+ + Encounter Details +--------+ + + + + | Date | Type | Department | Care Team | Description | +--------+ + + + + | 06/10/ | [facility] | [facility] | Oral Shine, | | | 2010 | Encounter | [facility] | [address] | | | | | CENTER [address] | [place] | | | | | [place] | [id number] | | | | | [address] | | | | | | [phone] | | | +--------+ + + + + Social History + +-------+ +--------+------+ | Tobacco Use | Types | Packs/Day | Years | Date | | | | | Used | | + +-------+ +--------+------+ | Never Assessed | | | | | + +-------+ +--------+------+ + + + | Sex Assigned at | Date Recorded | | | | + + + | Not on file | | + + + documented as of this encounter Medications at Time of Discharge + + + +---------+ + + | Medication | Sig | Dispensed | Refills | Start | End Date | | | | | | Date | | + + + +---------+ + + | PERMETHRIN EX | LOTN - as directed | | 0 | 01/17/20 | | | | | | | 10 | 6 | + + + +---------+ + + documented as of this encounter Plan of Treatment Not on filedocumented as of this encounter Visit Diagnoses Not on filedocumented in this encounter"
--- OUTSIDE RECORDS SUMMARY | ~2019-12-06 | XMS | Encounter Summary ---
Demographics + + + | Address | [address] | | | [place] [address] | + + + | Home Phone | | + + + | Preferred Language | Unknown | + + + | Marital Status | | + + + | Sikh Affiliation | 1013 | + + + | Race | Unknown | + + + | Ethnic Group | Unknown | + + + Author + + + | Author | [facility] | | | and [place] | + + + | Organization | [facility] | | | and [place] | + + + | Address | Unknown | + + + | Phone | Unavailable | + + + Support + + + + + | Name | Relationship | Address | Phone | + + + + + | Trevin Rocha | ECON | [address] | | | | | [place] [address] | | + + + + + Care Team Providers + +------+ + | Care Relocation Specialist Name | Role | Phone | + +------+ + PCP | Unavailable | + +------+ + Encounter Details +--------+ + + + + | Date | Type | Department | Care Team | Description | +--------+ + + + + | 06/12/ | Hospital | [facility] | | | | 1996 | Encounter | [facility] | | | | | | CENTER [address] | | | | | | [place] | | | | | | [address] | | | | | | [phone] | | | +--------+ + + + [...]
--- OUTSIDE RECORDS SUMMARY | ~2019-12-06 | XMS | Encounter Summary ---
Demographics + + + | Address | [address] | | | [place] [address] | + + + | Home Phone | | + + + | Preferred Language | Unknown | + + + | Marital Status | | + + + | Religion Affiliation | 1013 | + + + | Race | Unknown | + + + | Ethnic Group | Unknown | + + + Author + + + | Author | [facility] | | | and [place] | + + + | Organization | [facility] | | | and [place] | + + + | Address | Unknown | + + + | Phone | Unavailable | + + + Support + + + + + | Name | Relationship | Address | Phone | + + + + + | Trevin Rocha | ECON | [address] | | | | | [place] [address] | | + + + + + Care Team Providers + +------+ + | Care Rapid Extractor Operator Name | Role | Phone | + +------+ + | Freddie Sears DO | PCP | | + +------+ + Reason for Visit Auth/Cert +--------+--------+ + + + + | Status | Reason | Specialty | Diagnoses / | Referred By | Referred To | | | | | Procedures | Contact | Contact | +--------+--------+ + + + + | | | | Diagnoses | | Rajan | | | | | Rectal | | William Davis | | | | | bleeding | | MD [address] | | | | | Procedures | | [address] | | | | | CO | | [place], | | | | | COLONOSCOPY | | [place] [address] | | | | | FLX DX | | Phone: | | | | | W/COLLJ SPEC | | [phone] | | | | | WHEN PFRMD | | Fax: | | | | | CO | | [phone] | | | | | COLONOSCOPY | | | | | | | W/BIOPSY | | | | | | | SINGLE/MULTI | | | | | | | PLE CO | | | | | | | COLSC FLX | | | | | | | W/RMVL OF | | | | | | | TUMOR POLYP | | | | | | | LESION SNARE | | | | | | | TQ | | | | | | | COLONOSCOPY | | | +--------+--------+ + + + + Encounter Details +--------+---------+ + + + | Date | Type | Department | Care Team | Description | +--------+---------+ + + + | 12/31/ | Surgery | [facility] | William Larry | COLONOSCOPY | | 2019 | | [facility] OP | MD Ryan [address] | | | | | [address] | [address] [place] | | | | | [place], [place] | [place] [address] | | | | | [address] | [phone] | | | | | [phone] | | | +--------+---------+ + + + Social History + +-------+ [...] + + + | Blood Pressure | 109/56 | 12/31/2018 9:10 AM | | | | | PDT | | + + + + + | Pulse | 70 | 12/31/2018 9:10 AM | | | | | PDT | | + + + + + | Temperature | 36.3 C (97.3 F) | 12/31/2018 8:01 AM | | | | | PDT | | + + + + + | Respiratory Rate | 11 | 12/31/2018 9:10 AM | | | | | PDT | | + + + + + | Oxygen Saturation | 96% | 12/31/2018 9:10 AM | | | | | PDT | | + + + + + | Inhaled Oxygen | - | - | | | Concentration | | | | + + + + + | Weight | 104 kg (229 lb 4.5 | 12/31/2018 8:01 AM | | | | oz) | PDT | | + + + + + | Height | 172.7 cm (5' 8") | 12/31/2018 8:01 AM | | | | | PDT | | + + + + + | Body Mass Index | 34.86 | 12/31/2018 8:01 AM | | | | | PDT | | + + + + + documented in this encounter Medications at Time of Discharge + + + +---------+--------+ + | Medication | Sig | Dispensed | Refills | Start | End Date | | | | | | Date | | + + + +---------+--------+ + | acetaminophen | Take 1,000 mg by | | 0 | | | | (TYLENOL) 500 mg | mouth every 6 hours | | | | | | tablet | as needed for Pain. | | | | | + + + +---------+--------+ + documented as of this encounter H&P Notes William Larry MD - 12/31/2018 8:51 AM PDT PRE-ENDOSCOPY HISTORY AND PRE-SEDATION ASSESSMENT PATIENT NAME: Kassy Rocha : 1995 TODAY'S DATE: 12/31/2018 PLANNED PROCEDURE: colonoscopy PERTINENT HISTORY/INDICATION FOR PROCEDURE: Kassy Rocha is a 23 y.o. female w ho is undergoing endoscopy for rectal bleeding and intermittent diarrhea, denies any FH of C RC. PAST HISTORY: Past Medical History: Diagnosis Date PONV (postoperative nausea and vomiting) PROBLEM LIST: Patient Active Problem List Diagnosis Rectal bleeding PAST SURGICAL HISTORY Past Surgical History: Procedure Laterality Date CHOLECYSTECTOMY 2017 WISDOM TOOTH EXTRACTION HOME MEDS: No current facility-administered medications on file prior to encounter. Current Outpatient Medications on File Prior to Encounter Medication Sig Dispense Refill acetaminophen (TYLENOL) 500 mg tablet Take 1,000 mg by mouth every 6 hours as needed fo r Pain. ALLERGIES Allergies Allergen Reactions Azithromycin Hives Mallampati Class 1 (can visualize the entire tonsil) [place] [employer] of Anesthesia Grade:ASA 1 - A normal healthy patient Sedation Plan:Moderate sedation EXAMINATION: BP 116/73 | Pulse 69 | Temp 36.3 C (97.3 F) (Tympanic) | Resp 16 | Ht 1.727 m (5' 8 ") | Wt 104 kg (229 lb 4.5 oz) | SpO2 99% | ? No | BMI 34.86 kg/m General: Alert and oriented Throat: Normal Lungs: Clear Heart: Regular rate and rhythm with out significant murmur Abdomen: flat, normal bowel sounds. Soft, nontender 1. Available medical records have been reviewed. 2. Medication list reviewed. IMPRESSION: Patient appropriate for endoscopy. PLAN: 1. Proceed with procedure as stated above with moderate sedation/analgesia 2. Procedure, indications, risks and alternatives explained to patient/family and they agre ed to proceed and consent was signed. 3. Patient will be reevaluated immediately (1-2 minutes) before sedation administration and approved for the plan as stated above. Electronically Signed by: William Larry MD 12/31/2018 [facility] VERIFICATION OF CONSENT (PARQ) The patient was counseled regarding the procedure, its indications, risks, potential compli cations and alternatives. Any questions were answered. Consent was obtained. William Larry MD, 12/31/2018 8:51 [facility] Portions of this chart may have been created with [employer] voice recognition software. Occasi onal wrong-word or sound-alike substitutions may have occurred due to the inherent haynes itations of voice recognition software. Please read the chart carefully and recognize, using context, where these substitutions have occurred documented in thi s encounter Miscellaneous Notes D-C Instructions Provation - William Larry MD - 12/31/2018 8:50 AM PDTDischarge Ins tructions for Colonoscopy Exams Patient: Kassy Rocha : 1995 Acct: [id number] Exam Date: Monday, December 31, 2018 Doctor: WILLIAM LARRY MD You have had an examination of the gastrointestinal tract. The chances of difficulty following this procedure are minimal. The following instructions will assist you in your recovery. ACTIVITIES: Rest quietly until sedation wears off. DO NOT drive a motor vehicle or operate machinery for 24 hours after sedation. Be cautious making critical decisions for 24 hours after sedation. DIET: If throat has been sprayed, do not eat or drink for 1 hour after. Start with a swallow of tap water, if you experience any lack of sensation in your throat, wait another 30 - 60 minutes and start with water again. Once swallowing has returned to normal you may resume your usual diet unless otherwise instructed by your physician. DISCOMFORT: If you had a bowel exam, you may have some abdominal discomfort from the air put into your bowel during the exam. Moving about will help you pass this air. Sometimes the medications given to you during the exam can aggravate the veins. The chemical irritation can cause inflammation or pain along the arm with redness, swelling and warmth. This does not mean there is an infection. You can treat the affected area by applying warm,wet compresses (towels) 4 times a day for 20 minutes at a time until inflammation is resolved. REPORT TO YOUR DOCTOR: Unusual abdominal pain Chest pain or unusual shortness of breath Shoulder pain Nausea, vomiting Fever over 100 degrees, chills Signs of rectal bleeding (red or black stools) Any concern you have resulting from procedure You may reach your physician at . If unable to reach your physician, call [facility] Emergency Department at Ext. [phone] Your doctor recommends these additional instructions: Resume your previous diet. We are waiting for your pathology results. Your physician has recommended a repeat colonoscopy at age 49 (please contact the clinic prior to your 49th birthday to schedule) for screening purposes. The findings and recommendations have been discussed with you. These instructions have been explained to the patient and/or escort. A copy has been given to the patient/escort. Nurse Signature Patient Signature Escort Signature Date WILLIAM LARRY MD 12/31/2018 9:29:53 AM This report has been signed electronically. documented in this encounter Plan of Treatment Not on filedocumented as of this encounter Procedures + +--------+ + + + | Procedure Name | Priori | Date/Time | Associated Diagnosis | Comments | | | ty | | | | + +--------+ + + + | COLONOSCOPY | | 12/31/2018 | Rectal bleeding | | | | | 8:58 AM | | | | | | PDT | | | + +--------+ + + + | COLONOSCOPY | Routin | 12/31/2018 | | Results for this | | | e | 8:50 AM | | procedure are in the | | | | PDT | | results section. | + +--------+ + + + | POCT TEST, | Routin | 12/31/2018 | | Results for this | | URINE, QUAL | e | 7:45 AM | | procedure are in the | | | | PDT | | results section. | + +--------+ + + + | SURGICAL PATHOLOGY | Routin | 12/31/2018 | | Results for this | | EXAM | e | 12:00 AM | | procedure are in the | | | | PDT | | results section. | + +--------+ + + + documented in this encounter Results COLONOSCOPY (12/31/2018 8:50 AM PDT) + + | Specimen | + + | | + + + + -+ | Narrative | Performed At | + + -+ | | [facility] | | GastroenterologyPatient Name: Kassy HermanwellProcedure Date: | [facility] | | 12/31/2018 8:50 AMMRN: [id number] #: [id number] of : | | | 1995Admit Type: AmbulatoryAge: 23Room: Endo Room 2Gender: | | | FemaleNote Status: FinalizedAttending MD: WILLIAM LARRY , | | | MDProcedure: ColonoscopyIndications: Diarrhea | | | following gastrointestinal surgery, HematocheziaProviders: | | | WILLIAM LARRY MD, Danitza Martines RN, Christine Zee | | | AMITA Box, Debora Copeland, TechnicianReferring MD: | | | Freddie Sears DO (Referring MD)Medicines: | | | Fentanyl 100 micrograms IV, Midazolam 5 mg IVComplications: No | | | immediate complications.Procedure: Pre-Anesthesia Assessment: | | | - Prior to the procedure, a History and Physical was performed, | | | and patient medications and allergies were reviewed. The | | | patient is competent. The risks and benefits of the procedure | | | and the sedation options and risks were discussed with the | | | patient. All questions were answered and informed consent was | | | obtained. Patient identification and proposed procedure were | | | verified by the physician and the nurse in the pre-procedure | | | area in the procedure room. Mental Status Examination: normal. | | | Airway Examination: normal oropharyngeal airway and neck | | | mobility. Respiratory Examination: clear to auscultation. CV | | | Examination: normal. Prophylactic Antibiotics: The patient does not | | | require prophylactic antibiotics. Prior Anticoagulants: The | | | patient has taken no previous anticoagulant or antiplatelet | | | agents. ASA Grade Assessment: I - A normal, healthy patient. | | | After reviewing the risks and benefits, the patient was deemed | | | in satisfactory condition to undergo the procedure. The | | | anesthesia plan was to use moderate sedation / analgesia | | | (conscious sedation). Immediately prior to administration of | | | medications, the patient was re-assessed for adequacy to receive | | | sedatives. The heart rate, respiratory rate, oxygen saturations, | | | blood pressure, adequacy of pulmonary ventilation, and response | | | to care were monitored throughout the procedure. The physical | | | status of the patient was re-assessed after the procedure. | | | After I obtained informed consent, the scope was passed under | | | direct vision. Throughout the procedure, the patient's blood | | | pressure, pulse, and oxygen saturations were monitored | | | continuously. The Colonoscope was introduced through the anus | | | and advanced to the terminal ileum. The colonoscopy was | | | performed without difficulty. The patient tolerated the | | | procedure well. The quality of the bowel preparation was evaluated | | | using the BBPS (Rochelle Bowel Preparation Scale) with scores of: | | | Right Colon = 3, Transverse Colon = 3 and Left Colon = 3 | | | (entire mucosa seen well with no residual staining, small | | | fragments of stool or opaque liquid). The total BBPS score | | | equals 9.Findings: The perianal and digital rectal examinations | | | were normal. No hemorrhoids were found. The terminal | | | ileum appeared normal. The rectum, sigmoid colon, descending | | | colon, transverse colon, ascending colon and cecum appeared | | | normal. Biopsies for histology were taken with a cold forceps | | | from the entire colon for evaluation of microscopic colitis. | | | The retroflexed view of the distal rectum and anal verge was | | | normal and showed no anal or rectal abnormalities.Moderate | | | Sedation: Moderate (conscious) sedation was administered by the | | | endoscopy nurse and supervised by the endoscopist. The | | | patient's oxygen saturation, heart rate, blood pressure and | | | response to care were monitored. Total physician intraservice | | | time was 28 minutes.Impression: - The examined portion of the | | | ileum was normal. - The rectum, sigmoid colon, descending colon, | | | transverse colon, ascending colon and cecum are normal. | | | Biopsied. - The distal rectum and anal verge are normal on | | | retroflexion view. No hemorrhoids were found.Recommendation: | | | - The patient will be observed post-procedure, until all discharge | | | criteria are met. - Resume previous diet. - Await | | | pathology results. - Repeat colonoscopy at age 49 for screening | | | purposes. - The findings and recommendations were discussed with | | | the patient.WILLIAM LARRY MD12/31/2018 9:29:53 AMThis report has | | | been signed electronically.Number of Addenda: 0Note Initiated On: | | | 12/31/2018 8:50 AMScope Withdrawal Time: 0 hours 8 minutes 5 seconds | | | Scope In: 9:10:13 AMScope Out: 9:23:47 AM [facility] | | | [facility], [address] [place] [id number] | | | [phone] | | |Recommendation: | | | - The patient will be observed post-procedure, until all discharge | | | criteria are met. | | | - Resume previous diet. | | | - Await pathology results. | | | - Repeat colonoscopy at age 49 for screening purposes. | | | - The findings and recommendations were discussed with the patient. | | |WILLIAM LARRY MD | | |12/31/2018 9:29:53 AM | | |This report has been signed electronically. | | |Number of Addenda: 0 | | |Note Initiated On: 12/31/2018 8:50 AM | | |Scope Withdrawal Time: 0 hours 8 minutes 5 seconds | | |Scope In: 9:10:13 AM | | |Scope Out: 9:23:47 AM | | | [facility], [address] [place] [address] | | | [id number] | | + + -+ + +---------+ + + | Performing | Address | City/State/Zipcode | Phone Number | | Organization | | | | + +---------+ + + | [facility] | | | | + +---------+ + + POCT Test, Urine, QUAL (12/31/2018 7:45 AM PDT) + + + + + + | Component | Value | Ref Range | Performed | Pathologist | | | | | At | Signature | + + + + + + | | Negative | Negative | | | | Test, | | | | | | Urine, POC | | | | | + + + + + + | Internal QC | Acceptable | Acceptable | | | + + + + + + | Specific | | 1.010, 1.015, | | | | [place], | | 1.020, 1.025 | | | | POC | | | | | + + + + + + | Lot Number | [id number] | | | | + + + + + + | Expiration | 2020-06-03 | | | | | Date | | | | | + + + + + + + + | Specimen | + + | Urine | + + Surgical Pathology Exam (12/31/2018 12:00 AM PDT) + + | Specimen | + + | | + + + + + | Narrative | Performed At | + + + | SPECIMEN(S): A RANDOM COLON BIOPSY SPECIMEN SOURCE: [facility] | | COLON BIOPSY CLINICAL HISTORY: K62.5 (rectal bleeding). | [facility] | | MICROSCOPIC DESCRIPTION: Histologic sections of all submitted blocks | | | are examined by light microscopy. These findings, together with the | | | gross examination, support the pathologic diagnosis. FINAL | | | PATHOLOGIC DIAGNOSIS: Random colon biopsy: - Benign colonic | | | mucosa, negative for specific diagnostic abnormality. JVR:[facility]:C2NR | | | GROSS DESCRIPTION: The specimen, labeled "MG, random colon | | | biopsy," is received in formalin and consists of six pink-hughes soft | | | tissue fragment(s) that measure 0.1-0.3 cm in greatest dimension. The | | | specimen is entirely submitted in cassette (A1). JS (under the | | | direct supervision of a pathologist) The Gross Description was | | | prepared using a voice recognition system. The report was reviewed | | | for accuracy; however, sound-alike word errors, addition and/or | | | deletions may occur. If there is any question about this report, | | | please contact Client Services. PERFORMING LABORATORY: The | | | technical component was performed by [email or web address], [address] [place] [address] | | | [place] [address] (Final Rail Cutter: Rosa M Khan MD; CLIA# | | | [id number]). Professional interpretation was performed by [facility] | | | Performance Ind[address] | | | [address] [place] [address] (Final Rail Cutter: Luther | | | Germain Potts). Diagnostician: Luther Potts MD | | | Pathologist Electronically Signed 01/03/2019 | | + + + + +---------+ + + | Performing | Address | City/State/Zipcode | Phone Number | | Organization | | | | + +---------+ + + | [facility] | | | | | [facility] | | | | + +---------+ + + documented in this encounter Visit Diagnoses + + | Diagnosis | + + | Rectal bleeding Hemorrhage of rectum and anus | + + documented in this encounter Admitting Diagnoses + + | Diagnosis | + + | Rectal bleeding Hemorrhage of rectum and anus | + + documented in this encounter Administered Medications + +--------+ +--------+------+------+ | Medication Order | MAR | Action | Dose | Rate | Site | | | Action | Date | | | | + +--------+ +--------+------+------+ | fentaNYL (PF) injection PRN, | Given | 01/01/20 | 25 mcg | | | | Starting 12/31/18 at 0901 | | 19 9:07 | | | | | | | AM PDT | | | | + +--------+ +--------+------+------+ +-------+ +--------+---+---+ | Given | 01/01/20 | 25 mcg | | | | | 19 9:05 | | | | | | AM PDT | | | | +-------+ +--------+---+---+ | Given | 01/01/20 | 50 mcg | | | | | 19 9:01 | | | | | | AM PDT | | | | +-------+ +--------+---+---+ +---+---+ | | | +---+---+ + +---------+ +---+-------+---+ | lactated ringers (LR) infusion | New Bag | 01/01/20 | | 100 | | | at 100 mL/hr, Intravenous, | | 19 7:56 | | mL/hr | | | CONTINUOUS, Starting 12/31/18 | | AM PDT | | | | | at 0745, Pre-op | | | | | | + +---------+ +---+-------+---+ +---+---+ | | | +---+---+ + +-------+ +------+---+---+ | midazolam (VERSED) 5 mg/mL | Given | 08/02/20 | 1 mg | | | | injection PRN, Starting Fri | | 19 9:07 | | | | | 12/31/18 at 0902 | | AM PDT | | | | + +-------+ +------+---+---+ +-------+ +------+---+---+ | Given | 01/01/20 | 1 mg | | | | | 19 9:05 | | | | | | AM PDT | | | | +-------+ +------+---+---+ | Given | 01/01/20 | 3 mg | | | | | 19 9:02 | | | | | | AM PDT | | | | +-------+ +------+---+---+ +---+---+ | | | +---+---+ documented in this encounter
--- OUTSIDE RECORDS SUMMARY | ~2019-12-06 | XMS | Encounter Summary ---
Demographics + + + | Address | [address] | | | [place] [address] | + + + | Home Phone | | + + + | Preferred Language | Unknown | + + + | Marital Status | | + + + | Baptism Affiliation | 1013 | + + + | Race | Unknown | + + + | Ethnic Group | Unknown | + + + Author + + + | Author | [facility] | | | and [place] | + + + | Organization | [facility] | | | and [place] | + + + | Address | Unknown | + + + | Phone | Unavailable | + + + Support + + + + + | Name | Relationship | Address | Phone | + + + + + | Trevin Rocha | ECON | [address] | | | | | [place] [address] | | + + + + + Care Team Providers + +------+ + | Care Soa Engineer Name | Role | Phone | + +------+ + | Freddie Sears DO | PCP | | + +------+ + Reason for Referral Evaluate & Treat (Routine) +--------+ + + + + + | Status | Reason | Specialty | Diagnoses / | Referred By | Referred To | | | | | Procedures | Contact | Contact | +--------+ + + + + + | Closed | Specialty | | Diagnoses | | | | | Services | Services | Term | [place], | | | | Required | | | Alena Rawls, | | | | | | delivered | DO [address] | | | | | | [address] | | | | | | | [place], | | | | | | | [place] [address] | | | | | | | Phone: | | | | | | | [phone] | | | | | | | Fax: | | | | | | | [phone] | | +--------+ + + + + [...] | +--------+ + + + + | 12/10/ | Hospital | [facility] | Alena Roberson | Term | | 2018 - | Encounter | [facility] | DO [facility] [address] | delivered (Primary | | | | [address] | [facility] | Dx) | | 12/11/ | | [place] | [place] [address] | | | 2017 | | [address] | [phone] | | | | | [phone] | | | +--------+ + + + [...] + + + | Blood Pressure | 133/72 | 12/11/2017 4:00 PM | | | | | PDT | | + + + + + | Pulse | 73 | 12/11/2017 4:00 PM | | | | | PDT | | + + + + + | Temperature | 36.5 C (97.7 F) | 12/11/2017 4:00 PM | | | | | PDT | | + + + + + | Respiratory Rate | 18 | 12/11/2017 4:00 PM | | | | | PDT | | + + + + + | Oxygen Saturation | 96% | 12/11/2017 4:35 AM | | | | | PDT | | + + + + + | Inhaled Oxygen | - | - | | | Concentration | | | | + + + + + | Weight | 109.3 kg (241 lb) | 12/10/2017 6:06 AM | | | | | PDT | | + + + + + | Height | 175.3 cm (5' 9") | 12/10/2017 6:06 AM | | | | | PDT | | + + + + + | Body Mass Index | 35.59 | 12/10/2017 6:06 AM | | | | | PDT | | + + + + + documented in this encounter Discharge Summaries Alena Roberson DO - 12/11/2017 1:33 PM PDTFormatting of this note might be differe nt from the original. Physician Discharge Summary Patient ID: Kassy Rocha [id number] 22 y.o. 1995 Admit date: 12/10/2017 Discharge date and time: 12/11/17 Admitting Physician: Alena Roberson DO Discharge Physician: Alena Roberson DO Admission Diagnoses: 1. IUP@ 39w1d EGA 2. GBS positive Discharge Diagnoses: same with delivered Admission Condition: good Discharged Condition: good Indication for Admission: Kassy is a 22 y/o now at 39w1d EGA who presents for simon ctive induction of labor. Her has been uncomplicated. She is GBS positive Hospital Course: Kassy is a 22 y/o who presented at 39w1d EGA for IOL secondary t o term . Her was essentially uncomplicated. She was GBS negative and di d receive 3 doses PCN prior to delivery. She progressed appropriately through active labor. Amniotomy was performed and clear fluid was noted. I was present in patient room when she was dilated to 6 cm and remained with patient until following delivery. She did progress rapidly through the second stage of labor On 12/10/17 she delivered a VFI 6#15oz, Apgars 8/8. Her PP course was uncomplicated. She was pumping and supplementing. Pain was well controll ed. She was discharged home on PPD#1 without concern Discharge Exam: See note from today's date Labs: 11.7>13/38.1<155 Disposition: home Patient Instructions: Discharge Medications Changed Medications Details ibuprofen 600 MG tablet Take 1 tablet by mouth every 8 hours as needed for Pain. What changed: Another medication with the same name was added. Make sure you understand ho w and when to take each. aka: ADVIL,MOTRIN ibuprofen 600 MG tablet Take 1 tablet by mouth every 6 hours as needed for Pain. What changed: You were already taking a medication with the same name, and this prescripti on was added. Make sure you understand how and when to take each. aka: ADVIL,MOTRIN Unchanged Medications Details 27-0.8 mg multivitamin tablet Take 1 tablet by mouth Daily. Discontinued Medications HYDROcodone-acetaminophen 5-325 mg per tablet aka: NORCO HYDROmorphone 2 mg tablet aka: DILAUDID ondansetron 4 mg disintegrating tablet aka: ZOFRAN ODT ondansetron 8 mg disintegrating tablet aka: ZOFRAN ODT Activity: activity as tolerated, no sex for 6 weeks and no heavy lifting for 6 weeks Diet: regular diet Wound Care: keep wound clean and dry Follow-up with Dr. Roberson in 6 weeks. Signed: Alena Roberson DO 12/11/2017 13:33 documented in t his encounter Discharge Instructions Instructions Pablo Mcmahon RN - 12/11/2017Formatting of this note might be different fr om the original. After a Vaginal After having a baby, your body may be very tired. It can take time to recover from a vagina l delivery. You may stay in the hospital or center from 1 to 4 days.In some cases, y ou may be able to go home the same day. Right after the delivery Your temperature and blood pressure will be taken until they are stable. A nurse or other ealthcare provider will observe you as you rest. You may have afterbirth pains. These are cr amps caused by the uterus shrinking. Sanitary pads are used to soak up the discharge of the uterine lining. To make sure that you aren t bleeding too much, the pad will be checked. A nd the firmness of your uterus will be checked. To do this, a nurse will gently push down on your stomach. If you had anesthesia, you ll be watched closely until you can feel and mov e your toes. If you have perineal pain (pain between the vagina and anus), an ice pack can h elp. [place] care While still in the hospital or center, you ll learn how to hold and feed your baby. You willalso be given instructions on how to care for your baby. This includes bathing an d feeding. Preparing to go home You may be anxious to go home as soon as possible. Before you and your baby go home, a [facility] provider will check to be sure you are healthy enough to take care of your baby and y ourself. You re ready to go home when: You can walk to the bathroom and use the bathroom without help. You can eat solid food and swallow pills (if needed). You have no sign of infection or other health problems, including fever. You have adequate pain control. Your bleeding isn't excessive. You are able to care for your and are emotionally stable. Before leaving the hospital or center, you ll be given written instructions for adrianna e self-care after vaginal delivery. Be sure to follow these instructions carefully. If you h ave questions or concerns, talk about them now. If you have stitches You may have received stitches in the skin near your vagina. The stitches might have closed an episiotomy (an incision that enlarges the opening of the vagina). Or you may have needed stitches to repair torn skin. Either way, your stitches should dissolve within weeks. Until then, you can help reduce discomfort, aid healing, and reduce your risk of infection by beto ping the stitches clean. These tips can help: Gently wipe from front to back after you urinate or have a bowel movement. After wiping, spray warm water on the area. Or you can have a sitz bath. This means sitt ing in a tub with a few inches of water in it. Then pat the area dry or use a hairdryer on a cool setting. Do not use soap or any solution except water on the area. You can take a shower unless told not to. Change sanitary pads at least every [address] cold or heat packs on the area as directed by your healthcare providers or nurses. Keep a thin towel between the pack and your skin. Sit on firm seats so the stitches pull less. follow-up Schedule a follow-up exam with your healthcare provider for about 6 weeks after d elivery. During this exam, your uterus and vaginal area will be checked. Contact your health care provider if you think you or your baby are having any problems. When to call your healthcare provider Call your health care provider right away if you have: A fever of 100.4F (38.0C) or higher Bleeding that requires a new sanitary pad after an hour, or large blood clots Pain in your vagina that gets worse and isn't relieved with medicine Swelling, discharge, or increased pain from vaginal tear or episiotomy Burning, pain, red streaks, or lumpy areas in your breasts that may be accompanied by fl u-like symptoms Cracks, blisters, or blood on your nipples Burning or pain when you urinate Nausea or vomiting Dizziness or fainting Feelings of extreme sadness or anxiety, or a feeling that you don t want to be with yo ur baby Abdominal pain that isn t relieved with medicine Vaginal discharge that has a bad odor No bowel movement for 5 days Painful urination, or inability to control urination Redness, warmth, or pain in the lower leg Chest pain Date Last Reviewed: 12/31/201419994799-0679 [employer]. [address] [place] [address]. All righ ts reserved. This information is not intended as a substitute for professional medical care. Always follow your healthcare professional's instructions. documented in this encounter Medications at Time of Discharge + + + +---------+ + + | Medication | Sig | Dispensed | Refills | Start | End Date | | | | | | Date | | + + + +---------+ + + | ibuprofen | Take 1 tablet by | 30 | 1 | 12/12/19 | | | (ADVIL,MOTRIN) 600 | mouth every 6 hours | tablet | | 18 | 9 | | MG tablet | [...] documented as of this encounter Progress Notes Alena Roberson, - 12/11/2017 6:56 AM PDTPt seen and examined. Pain well control led overnight. Voiding without difficulty. Pain well controlled. Mild back pain but this is tolerable. Lochia moderate but stable. and pumping without difficulty. VS T 36.1 P 72, R 16, BP 110/55 Gen: NAD HRRR. LCTA Abd: Soft. NT. FF Ext: Tr edema b/l LE Labs: cbc pending A/P: 1. PPD#1, s/p with no repair--stable 2. Continue routine care. 3. Pain management as indicated 4. Anticipate DC home at night. Electronically signed by Alena Roberson DO at 12/11 6:58 AM CALVINMcCoabhinavstanAlena DO - 12/10/2017 12:08 PM PDTPt getting progressivel y more uncomfortable with ctx. Ctx q 2-3 min. SVE unchanged 60/-2. Anterior. Soft. Amniotomy performed and clear fluid was noted S/p 2 doses of PCN for GBS prophylaxis Continue active management. Anticipate SVD documented in this encounter H&P Notes Alena Roberson DO - 12/10/2017 7:41 AM Enrique is a 22 y/o now at 39w1d EGA who presents for elective induction of labor. Her has been uncomplicated. S he is GBS positive. Admits to irregular ctx. Denies LOF or vaginal bleeding. No other con cerns POBHx: 12/16, 41wks, , M, 7#5oz, no complications PGynHx: Denies h/o abn pap, STIs, and cerv procedures PMH: None PSH: Cholecystectomy. [place] tooth extraction Meds: PNV All: NKDA SocHx: Denies tobacco, ETOH, and illicit drug use VSS. Afebrile Gen: NAD HRRR. LCTA Abd: soft. NT Gravid Ext: Tr edema b/l LE SVE 360/-2. Midposition. Soft FHTs 120s/mod variability/+accels TOCO nil A/P: 1. IOL. IUP@ 39w1d EGA. Term 2. FHTs reactive 3. GBS positive. PCN prophylaxis initiated. 4. Active management. Pitocin per protocol. Plan amniotomy after second dose of antibioti cs. 5. Pain management as indicatedElectronically signed by Alena Roberson DO at 2017 7:46 AM PDTdocumented in this encounter Miscellaneous Notes Plan of Care - Pablo Mcmahon RN - 12/11/2017 5:54 PM PDTDischarge instructions and pre cautions reviewed with patient. Patient states understanding of discharge instructions and states readiness to assume self care.Electronically signed by Pablo Mcmahon RN at 018 5:55 PM PDTPlan of Care - Miri Martino RN - 12/11/2017 5:08 AM PDTProblem: Patien t Care Overview (Adult) Goal: Care Team Goals & Evaluation PROBLEM-RELATED GOALS: 1. Kassy will maintain hemodynamically stable as evidenced by stable VS, H/H WDL, Postpa rtum bleeding WDL,, I/O s wdl by 12/12/17 2. Kassy will remain free of s/s of infection as evidenced by afebrile, WBC WDL, no incr eased pain, no foul smelling lochia by 12/12/17 3. Kassy will report acceptable pain/discomfort and/or pain <=3/10 until 12/12/17 STRATEGY TO ACHIEVE GOALS: 1. Monitor VS routinely, Encourage early , Watch for changes in blood pressur e, heart rate and urine output, Continue uterine fundal massage, if fundus remains boggy, An ticipate administration of uterotonic medications, Accurately assess amount of blood loss (e .g., weigh perineal pads), Check for pooling on underpad 2. Promote hand and personal hygiene, assist to void/Encourage frequent voiding, Monitor f or fundal displacement/palpable bladder, Promote adequate fluid and nutritional intake. 3. Use a consistent pain scale for regular/frequent assessment, Mutually determine/review pain management plan regularly, Consider the presence of pre-existing persistent pain, Recog nize need to maintain chronic regimen with additional dosing to manage acute pain, Encourage /facilitate nonpharmacologic pain techniques (e.g., hydrotherapy, relaxation) Outcome: Improving Goal Evaluation: Patient has been up independently, voiding without difficulty. Ibuprofen x 1 effective for pain control. FFU with light bleeding. independently with nipple shield. VSS, afebrile. lan of Care - Rosa M Soares RN - 12/10/2017 7:15 PM PDTReport to oncoming shift. lan of Care - Rosa M Bernard RN - 12/10/2017 6:45 PM PDTUp to shower with stnd by assist tolerated well. Nidia care done and voided. tra snferred to pp room and oriented to calling for the first time she needs to get up.Yoly ayala signed by Rosa M Bernard RN at 12/10/2017 7:07 PM PDTPlan of Care - Rosa M Bernard RN - 12/10/2017 6:35 PM PDTAssumed care of pt who is recovering from a vag delivery. Georges es pain or discomfort bonds well with baby.Electronically signed by Rosa M Bernard RN at 6:57 PM PDTL&D Delivery Note - Alena Roberson DO - 12/10/2017 6:02 PM PDT Kassy is a 22 y/o who presented at 39w1d EGA for IOL secondary to term . Her was essentially uncomplicated. She was GBS negative and did receive 3 doses PCN prior to delivery. She progressed appropriately through active labor. Amniotomy was pe rformed and clear fluid was noted. I was present in patient room when she was dilated to 6 cm and remained with patient until following delivery. She did progress rapidly through the second stage of labor On 12/10/17 @ 1749 she delivered a VFI weight not yet available, Apgars 8/8 over intact nidia neum. Nuchal cord was noted and easily delivered through nuchal cord. Anterior righ t shoulder delivered with ease and body followed. Infant was placed on maternal abdomen. M outh/nose were bulb suctioned. After 30 sec delay cord was milked and clamped x 2. Cord was cut. Cord blood obtained. P itocin added to IV. Placenta then delivered with gentle cord traction, was examined, and found to be intact. No vaginal lacerations were noted. EBL 300cc. Mother/ were stable in delivery suite following delivery. lan of Care - Pablo Mcmahon RN - 12/10 6:00 PM PDT17:49 Spontaneous vaginal delivery of vigorous, viable girl. 1751 Spontaneous delivery of intact placenta lan of Pablo Fan RN - 12/10/2017 4:52 PM PDTUp to B R, voided lan of Pablo Fan RN - 12/10/2017 4:49 PM PDTUsing ball lan of Pablo Fan RN - 12/10/2017 1:13 PM PDTpatietn up walking in [place] with spouse lan of Pablo Fan RN - 12/10/2017 10:44 AM PDTP atient states contractions are becoming "quite painful", continues to decline epidural as victor manuel art desires an unmedicated labor, number not assigned to pain per patient request.Electron ically signed by Pablo Mcmahon RN at 12/10/2017 10:47 AM PDTPlan of Pablo Fan RN - 12/10/2017 7:35 AM PDTAssumed juana arellano here for induction of labor, parameters for induction met, consent on chart. documented in this encounter Plan of Treatment + + +--------+ + + | Name | Type | Priori | Associated Diagnoses | Order Schedule | | | | ty | | | + + +--------+ + + | Ambulatory referral | Outpatient | Routin | Term | 1 Occurrences | | to | Referral | e | delivered | starting 12/11/2017 | | | | | | until 12/10/2018 | + + +--------+ + + documented as of this encounter Procedures + +--------+ + + + | Procedure Name | Priori | Date/Time | Associated Diagnosis | Comments | | | ty | | | | + +--------+ + + + | CBC NO DIFFERENTIAL | Routin | 12/11/2017 | | Results for this | | | e | 5:53 AM | | procedure are in the | | | | PDT | | results section. | + +--------+ + + + | CBC NO DIFFERENTIAL | Routin | 12/10/2017 | | Results for this | | | e | 6:34 AM | | procedure are in the | | | | PDT | | results section. | + +--------+ + + + | TYPE AND SCREEN | Routin | 12/10/2017 | | Results for this | | | e | 6:34 AM | | procedure are in the | | | | PDT | | results section. | + +--------+ + + + | CULTURE, STREP GROUP | Routin | 11/17/2017 | | Results for this | | B | e | | | procedure are in the | | | | | | results section. | + +--------+ + + + | C. TRACHOMATIS AND | Routin | 05/11/2017 | | Results for this | | N. GONORRHOEAE AND | e | | | procedure are in the | | T. VAGINALIS, NAAT | | | | results section. | + +--------+ + + + | C. TRACHOMATIS AND | Routin | 05/11/2017 | | Results for this | | N. GONORRHOEAE, NAAT | e | | | procedure are in the | | | | | | results section. | + +--------+ + + + | ABO RH | Routin | 05/11/2017 | | Results for this | | | e | | | procedure are in the | | | | | | results section. | + +--------+ + + + | RUBELLA AB, IGG | Routin | 05/11/2017 | | Results for this | | | e | | | procedure are in the | | | | | | results section. | + +--------+ + + + | HIV 1 AND 2 AB, | Routin | 05/11/2017 | | Results for this | | REFLEX | e | | | procedure are in the | | | | | | results section. | + +--------+ + + + | HEPATITIS B SURFACE | Routin | 05/11/2017 | | Results for this | | AG | e | | | procedure are in the | | | | | | results section. | + +--------+ + + + | ANTIBODY SCREEN | Routin | 05/11/2017 | | Results for this | | | e | | | procedure are in the | | | | | | results section. | + +--------+ + + + documented in this encounter Results CBC no Differential (12/11/2017 5:53 AM PDT) + + + + + + | Component | Value | Ref Range | Performed | Pathologist | | | | | At | Signature | + + + + + + | White Blood | 11.7 (H) | 4.0 - 11.0 K/uL | [facility] | | | Cells | | | [facility] | | | | | | [facility] | | | | | [facility] - | | | | | | LABORATORY | | + + + + + + | Red Blood | 4.13 | 3.70 - 5.20 | [facility] | | | Cells | | M/uL | [facility] | | | | | | [facility] | | | | | | [facility] - | | | | | | LABORATORY | | + + + + + + | Hemoglobin | 13.0 | 11.5 - 16.0 | [facility] | | | | | g/dL | [facility] | | | | | | MEDICAL | | | | | | C[facility] - | | | | | | LABORATORY | | + + + + + + | Hematocrit | 38.1 | 34.0 - 47.0 % | [facility] | | | | | | [facility] | | | | | | MED[facility] | | | | | | C[facility] - | | | | | | LABORATORY | | + + + + + + | MCV | 92.4 | 83.0 - 101.0 fL | [facility] | | | | | | [facility] | | | | | | [facility] | | | | | | [facility] - | | | | | | LABORATORY | | + + + + + + | MCH | 31.6 | 28.0 - 35.0 pg | [facility] | | | | | | [facility] | | | | | | MEDICAL | | | | | | C[facility] - | | | | | | LABORATORY | | + + + + + + | MCHC | 34.2 | 32.0 - 36.0 | [facility] | | | | | g/dL | [facility] | | | | | | MEDICAL | | | | | | CENTER - | | | | | | LABORATORY | | + + + + + + | RDW-CV | 13.6 | <15.0 % | [facility] | | | | | | [facility] | | | | | | MEDICAL | | | | | | CENTER - | | | | | | LABORATORY | | + + + + + + | Platelet | 155 | 140 - 440 K/uL | [facility] | | | Count | | | [facility] | | | | | | MEDICAL | | | | | | CENTER - | | | | | | LABORATORY | | + + + + + + | MPV | 10.1 | fL | [facility] | | | [...] + + | [facility] | [address] | [place] | [phone] | | [facility] | | [address] | | | - LABORATORY | | | | + + + + + Type and Screen (12/10/2017 6:34 AM PDT) + + + + + [...] | | | Screen | | | [facility] | | | [...] | + + + + + | [facility] | [address] | [place] | | | [facility] | | [address] | | | - BLOOD BANK | | | | + + + + + CBC no Differential (12/10/2017 6:34 AM PDT) + +-------+ + + + | Component | Value | Ref Range | Performed | Pathologist | | | | | At | Signature | + +-------+ + + + | White Blood | 8.2 | 4.0 - 11.0 K/uL | [facility] | | | Cells | | | [facility] | | | | | | MEDICAL | | | | | | CENTER - | | | | | | LABORATORY | | + +-------+ + + + | Red Blood | 4.23 | 3.70 - 5.20 | [facility] | | | Cells | | M/uL | [facility] | | | | | | MEDICAL | | | | | | CENTER - | | | | | | LABORATORY | | + +-------+ + + + | Hemoglobin | 13.6 | 11.5 - 16.0 | [facility] | | | | | g/dL | [facility] | | | | | [facility] | | | | | | CENTER - | | | | | | LABORATORY | | + +-------+ + + + | Hematocrit | 38.6 | 34.0 - 47.0 % | [facility] | | | | | | [facility] | | | | | | MEDICAL | | | | | | CENTER - | | | | | | LABORATORY | | + +-------+ + + + | MCV | 91.3 | 83.0 - 101.0 fL | [facility] | | | | | | [facility] | | | | | [facility] | | | | | | [facility] - | | | | | | LABORATORY | | + +-------+ + + + | MCH | 32.1 | 28.0 - 35.0 pg | [facility] | | | | | | [facility] | | | | | | MEDICAL | | | | | | CENTER - | | | | | | LABORATORY | | + +-------+ + + + | MCHC | 35.2 | 32.0 - 36.0 | [facility] | | | | | g/dL | [facility] | | | | | | MEDICAL | | | | | | CENTER - | | | | | | LABORATORY | | + +-------+ + + + | RDW-CV | 13.5 | <15.0 % | [facility] | | | | | | [facility] | | | | | | MEDICAL | | | | | | CENTER - | | | | | | LABORATORY | | + +-------+ + + + | Platelet | 190 | 140 - 440 K/uL | [facility] | | | Count | | | [facility] | | | | | | MEDICAL | | | | | | CENTER - | | | | | | LABORATORY | | + +-------+ + + + | MPV | 9.0 | fL | [facility] | | | [...] | + + + + + | [facility] | [address] | [place] | [phone] | | [facility] | | [address] | | | - LABORATORY | | | | + + + + + Culture,Strep Group B (11/17/2017) + + + + + + | Component | Value | Ref Range | Performed | Pathologist | | | | | At | Signature | + + + + + + | GBS result, | Positive (A) | Negative | | | | External | | | | | + + + + + + + + | Specimen | + + | Tissue - Structure | | of lower third of | | vagina (body | | structure) | + + Rubella Ab, IgG (05/11/2017) + +--------+ + + + | Component | Value | Ref Range | Performed | Pathologist | | | | | At | Signature | + +--------+ + + + | Rubella, | Immune | | | | | External | | | | | + +--------+ + + + + + | Specimen | + + | Blood | + + HIV 1 and 2 Ab, Reflex (05/11/2017) + + + + + + | Component | Value | Ref Range | Performed | Pathologist | | | | | At | Signature | + + + + + + | HIV, | Non-Reactive | Non-Reactive | | | | External | | | | | + + + + + + + + | Specimen | + + | Blood | + + Hepatitis B Surface Ag (05/11/2017) + + + + + + | Component | Value | Ref Range | Performed | Pathologist | | | | | At | Signature | + + + + + + | HBsAg, | Non-Reactive | Non-Reactive | | | | External | | | | | + + + + + + + + | Specimen | + + | Blood | + + C. trachomatis and N. gonorrhoeae, NAAT (05/11/2017) + + + + + + | Component | Value | Ref Range | Performed | Pathologist | | | | | At | Signature | + + + + + + | Chlamydia, | Negative | Negative | | | | External | | | | | + + + + + + ABO Rh (05/11/2017) + + + + + + | Component | Value | Ref Range | Performed | Pathologist | | | | | At | Signature | + + + + + + | ABO, | A | | | | | External | | | | | + + + + + + | Rh, | Positive | | | | | External | | | | | + + + + + + + + | Specimen | + + | Blood | + + C. TRACHOMATIS AND N. GONORRHOEAE AND T. VAGINALIS, NAAT (05/11/2017) + + + + + + | Component | Value | Ref Range | Performed | Pathologist | | | | | At | Signature | + + + + + + | GC External | Negative | Negative | | | + + + + + + Antibody Screen (05/11/2017) + + + + + + | Component | Value | Ref Range | Performed | Pathologist | | | | | At | Signature | + + + + + + | Antibody | Negative | Negative | | | | Screen, | | | | | | External | | | | | + + + + + + + + | Specimen | + + | Blood | + + documented in this encounter Visit Diagnoses + + | Diagnosis | + + | Term delivered - Primary | + + documented in this encounter Administered Medications + +--------+ +--------+------+------+ | Medication Order | MAR | Action | Dose | Rate | Site | | | Action | Date | | | | + +--------+ +--------+------+------+ | docusate sodium (COLACE) | Given | 12/11/19 | 200 mg | | | | capsule 200 mg 200 mg, Oral, | | 18 8:22 | | | | | NIGHTLY, First dose on [place] | | PM PDT | | | | | 12/10/17 at 2100, Hold for loose | | | | | | | stools, | | | | | | + +--------+ +--------+------+------+ +---+---+ | | | +---+---+ + +-------+ +--------+---+---+ | fentaNYL (PF) injection 50-100 | Given | 12/11/19 | 50 mcg | | | | mcg 50-100 mcg, Intravenous, | | 18 5:17 | | | | | EVERY 1 HOUR PRN, Pain, Starting | | PM PDT | | | | | [place] 12/10/17 at 0617, Maximum | | | | | | | total dose is 200 mcg., Labor and | | | | | | | Delivery | | | | | | + +-------+ +--------+---+---+ +-------+ +---------+---+---+ | Given | 12/11/19 | 100 mcg | | | | | 18 4:11 | | | | | | PM PDT | | | | +-------+ +---------+---+---+ +---+---+ | | | +---+---+ + +-------+ +--------+---+---+ | ibuprofen (ADVIL,MOTRIN) tablet | Given | 12/11/19 | 600 mg | | | | 600 mg 600 mg, Oral, EVERY 6 | | 18 7:28 | | | | | HOURS PRN, Pain, Starting [place] | | PM PDT | | | | | 12/10/17 at 1826, If urine output | | | | | | | is less than 240 mL/8 hours (30 | | | | | | | mL/hr) or if signs of bleeding, | | | | | | | contact MD and hold ibuprofen., | | | | | | | | | | | | | + +-------+ +--------+---+---+ +---+---+ | | | +---+---+ + +---------+ +---+-------+---+ | lactated ringers (LR) infusion | New Bag | 12/11/19 | | 125 | | | at 125 mL/hr, Intravenous, | | 18 6:47 | | mL/hr | | | CONTINUOUS, Starting [place] 12/10/17 | | AM PDT | | | | | at 0645, Labor and Delivery | | | | | | + +---------+ +---+-------+---+ + +---+ | | | + +---+ | miSOPROStol (CYTOTEC) tablet | | | 600 mcg 600 mcg, Oral, PRN, | | | Post- hemorrhage, Starting | | | [place] 12/10/17 at 1826, For 1 dose, | | | If general anesthesia give per | | | rectum. May give only after | | | delivery., | | + +---+ | | | + +---+ | miSOPROStol (CYTOTEC) tablet | | | 800 mcg 800 mcg, Rectal, PRN, | | | Post- hemorrhage, Starting | | | [place] 12/10/17 at 1826, For 1 dose, | | | If unable to administer orally. | | | May give only after delivery., | | | | | + +---+ | | | + +---+ + +---------+ + +-------+---+ | oxytocin in saline (PITOCIN) 30 | New Bag | 12/11/19 | 999 | 999 | | | units/500 mL (60 jeremy-units/mL) | | 18 5:56 | jeremy-un | mL/hr | | | infusion 0-999 jeremy-units/min | | PM PDT | its/min | | | | (0-999 mL/hr), at 0-999 mL/hr, | | | | | | | Intravenous, TITRATED, Starting | | | | | | | [place] 12/10/17 at 0645, Low Dose | | | | | [...] | | | | | | | Clitnon score of 7 or more. | | [...] | | | + +---------+ + +-------+---+ + + + + +---+ | Rate/Dose Change | 12/11/19 | 10 | 10 mL/hr | | | | 18 1:00 | jeremy-un | | | | | PM PDT | its/min | | | + + + + +---+ | Rate/Dose Change | 12/11/19 | 8 | 8 mL/hr | | | | 18 11:00 | jeremy-un | | | | | AM PDT | its/min | | | + + + + +---+ +---+---+ | | | +---+---+ + +---------+ + + +---+ | penicillin G potassium 2.5 | New Bag | 12/11/19 | 2.5 | 55 mL/hr | | | Million Units in sodium chloride | | 18 4:28 | Million | | | | 0.9% 50 mL IVPB 2.5 Million | | PM PDT | Units | | | | Units, Intravenous, Administer | | | | | | | over 60 Minutes, EVERY 4 HOURS | | | | | | | INTERVAL, First dose on [place] | | | | | | | 12/10/17 at 1100, Starting 4 hours | | | | [...] + + +---+ | New Bag | 12/11/19 | 2.5 | 55 mL/hr | | | | 18 10:14 | Million | | | | | AM PDT | Units | | | +---------+ + + +---+ +---+---+ | | | +---+---+ + +---------+ + +-------+---+ | penicillin G potassium 5 | New Bag | 12/11/19 | 5 | 100 | | | Million Units in sodium chloride | | 18 6:48 | Million | mL/hr | | | 0.9% 100 mL IVPB 5 Million | | AM PDT | Units | | | | Units, Intravenous, Administer | | | | | | | over 60 Minutes, ONCE, [facility] | | | | | | | 12/10/17 at 0645, For 1 dose, | | | | | | | Activate system and mix before | | | | | | | use., Labor and Delivery, | | | | | | | Indications: GBS Prophylaxis | | | | | | + +---------+ + +-------+---+ +---+---+ | | | +---+---+ + +-------+ + +---+---+ | 27-0.8 mg multivitamin | Given | 12/12/19 | 1 tablet | | | | 1 tablet 1 tablet, Oral, DAILY, | | 18 9:39 | | | | | First dose on [facility] 12/10/17 at | | AM PDT | | | | | 1845, | | | | | | + +-------+ + +---+---+ +---+---+ | | | +---+---+ documented in this encounter
--- OUTSIDE RECORDS SUMMARY | ~2019-12-06 | XMS | Encounter Summary ---
Demographics + + + | Address | [address] | | | [place] [address] | + + + | Home Phone | | + + + | Preferred Language | Unknown | + + + | Marital Status | | + + + | Anabaptism Affiliation | 1013 | + + + | Race | Unknown | + + + | Ethnic Group | Unknown | + + + Author + + + | Author | [facility] | | | and [place] | + + + | Organization | [facility] | | | and [place] | + + + | Address | Unknown | + + + | Phone | Unavailable | + + + Support + + + + + | Name | Relationship | Address | Phone | + + + + + | Trevin Rocha | ECON | [address] | | | | | [place] [address] | | + + + + + Care Team Providers + +------+ + | Care Reimbursement Rep Name | Role | Phone | + +------+ + | Freddie Sears DO | PCP | | + +------+ + Reason for Visit + + + | Reason | Comments | + + + | Epigastric Pain | | + + + | Emesis During | | | | | + + + Encounter Details +--------+ + + + + | Date | Type | Department | Care Team | Description | +--------+ + + + + | 09/11/ | Emergency | [facility] | Daniel Soto | Hyperemesis | | 2015 | | [facility] | José Luis Singh MD | rica (Primary | | | | CENTER [address] | [address] | Dx) | | | | [place] | [place] | | | | | [address] | [phone] | | | | | [phone] | | | +--------+ + + + [...] + + + | Blood Pressure | 122/81 | 09/12/2015 9:02 PM | | | | | PDT | | + + + + + | Pulse | 88 | 09/12/2015 11:39 PM | | | | | PDT | | + + + + + | Temperature | 37.4 C (99.3 F) | 09/12/2015 9:02 PM | | | | | PDT | | + + + + + | Respiratory Rate | 16 | 09/12/2015 9:02 PM | | | | | PDT | | + + + + + | Oxygen Saturation | 96% | 09/12/2015 11:39 PM | | | | | PDT | | + + + + + | Inhaled Oxygen | - | - | | | Concentration | | | | + + + + + | Weight | 97.5 kg (215 lb) | 09/12/2015 9:02 PM | | | | | PDT | | + + + + + | Height | 175.3 cm (5' 9.02") | 09/12/2015 9:02 PM | | | | | PDT | | + + + + + | Body Mass Index | 31.74 | 09/12/2015 9:02 PM | | | | | PDT | | + + + + + documented in this encounter Discharge Instructions Instructions Daniel Soto MD - 09/12/2015Please follow-up with your ObGyn. Return for severe worsening nausea vomiting fever pain or other worsening symptoms. documented in this encounter Medications at Time [...] + + + +---------+ + + | promethazine | Take 1 tablet by | 20 | 0 | 09/12/19 | | | (PHENERGAN) 25 mg | mouth every 4 hours | tablet | | 16 | 6 | | tablet | as needed. | | | | | + + + +---------+ + + documented as of this encounter ED Notes Shabbir Borges RN - 09/12/2015 11:47 PM PDTPt dc from er ambulatory with family. instr ucionts givne to pt both verbally and is witting. Pt signed indincating that she received A copy of her instructions in writtni at time of dc arks, Daniel Singh MD - 09/12/2015 9:11 PM PDTFor matting of this note might be different from the original. [facility] Kassy Roche Emergency Department Encounter Note [address] [place] [id number] PCP:Freddie Sears DO [phone] eMERGENCY dEPARTMENT eNCOUnter CHIEF COMPLAINT Chief Complaint Patient presents with Epigastric Pain Emesis During TRIAGE ED Triage Notes Agapito Palafox RN 09/12/2015 21:02 Patient complains of epigastric pain, nausea, and vomiting since yesterday. 7 weeks pregnan t. x 1. 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 female who presents burning epigastric pain, Patient nam s had some nausea, and vomiting that has persistant for the last 24 hours. Patient states that any time she eats anything she develops acute vomiting. Patient is 7 weeks . Current she does not feel well. She has ongoing nausea, She states that she feels some pressure in the abdomen. PAST MEDICAL HISTORY History reviewed. No pertinent past medical history. SURGICAL HISTORY History reviewed. No pertinent past surgical history. CURRENT MEDICATIONS Previous Medications PERMETHRIN EX LOTN - as directed 27-0.8 MG MULTIVITAMIN TABLET Take 1 tablet by mouth Daily. ALLERGIES No Known Allergies FAMILY HISTORY No family history on file. SOCIAL HISTORY History Social History Marital Status: Single Spouse Name: N/A Number of Children: N/A Years of Education: N/A Social History Main Topics Smoking status: Never Smoker Smokeless tobacco: Never Used Alcohol Use: No Drug Use: No Sexual Activity: Not on file Other Topics Concern None Social History Narrative None REVIEW OF SYSTEMS Please see HPI, All systems negative except as marked. Twelve point review of system comp leted my me. PHYSICAL EXAM VITAL SIGNS: Temp: 37.4 C (99.3 F) Pulse: 88 Resp: 16 SpO2: 99 % BP: 122/81 mmHg Constitutional: Well developed, Well nourished, Non-toxic appearance. No acute distress. HENT: Normocephalic, Atraumatic, Bilateral external ears normal, Oropharynx moist, No oral exudates, Nose normal. Neck- Normal range of motion, No tenderness, Supple, No stridor. Eyes: PERRL, EOMI, Conjunctiva normal, No discharge. Respiratory: Normal breath sounds, No respiratory distress, No wheezing, No chest tenderne ss. Cardiovascular: Normal heart rate, Normal rhythm, No murmurs, No rubs, No gallops. GI: Bowel sounds normal, Soft, No significant tenderness. , No masses, No pulsatile reece s. Musculoskeletal: Intact distal pulses, No edema, No tenderness, No cyanosis, No clubbing. Good range of motion in all major joints. No tenderness to palpation or major deformities no mihai. Neurologic: Alert & oriented x 3, Normal motor function, Normal sensory function, No focal deficits noted, no facial assymetry noted. 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 (See chart for details) Nursing notes reviewed. I discussed treatment options with the patient. Patient chose to try oral medications fir st prior to initiation of an iv resusitation. Patient was given oral zofran with maalox. I discussed oral Zofran and Maalox patient does not feel any better. At this point we are initiating an IV and giving her some Phenergan. She received IV Phenergan and feels much better. She at this point appears to be otherwise stable. She is to follow-up with her primary care physician. She is to return for severe worsening symptoms. At this point patient does not appear to be in acute distress. I discussed return precautions with the patient. Follow-up Information Follow up with Freddie Sears DO. Specialty: Family Medicine - Adult Medicine Contact information: [address] [place] [id number] New Prescriptions PROMETHAZINE (PHENERGAN) 25 MG TABLET Take 1 tablet by mouth every 4 hours as needed. Discharge Instructions Please follow-up with your ObGyn. Return for severe worsening nausea vomiting fever pain o r other worsening symptoms. FINAL IMPRESSION 1. Hyperemesis gravidarum Portions of this chart may have been created with Yelago voice recognition software. Occasi onal wrong-word or sound-alike substitutions may have occurred due to the inherent haynes itations of voice recognition software. Please read the chart carefully and recognize, using context, where these substitutions have occurred Daniel Soto MD 09/12/15 2323 documented in this encounter Miscellaneous Notes ED Triage Notes - Agapito Sunshine, RN - 09/12/2015 9:00 PM PDTPatient complains of epig astric pain, nausea, and vomiting since yesterday. 7 weeks . x 1. Pt has a G YN appointment on 09/25/15 documented in this encounter Plan of Treatment Not on filedocumented as of this encounter Visit Diagnoses + + | Diagnosis | + + | Hyperemesis gravidarum - Primary Mild hyperemesis gravidarum, unspecified as to | | episode of care | + + documented in this encounter Administered Medications + +--------+ +--------+------+------+ | Medication Order | MAR | Action | Dose | Rate | Site | | | Action | Date | | | | + +--------+ +--------+------+------+ | aluminum & magnesium | Given | 09/12/19 | 30 mLs | | | | hydroxide-simethicone (MAALOX | | 16 9:33 | | | | | PLUS REGULAR STRENGTH) 200-200-20 | | PM PDT | | | | | mg/5 mL suspension 30 mL 30 mL, | | | | | | | Oral, ONCE, 09/12/15 at 2125, | | | | | | | For 1 dose, Shake well., | | | | | | + +--------+ +--------+------+------+ +---+---+ | | | +---+---+ + +-------+ +------+---+---+ | ondansetron (ZOFRAN ODT) | Given | 09/12/19 | 8 mg | | | | disintegrating tablet 8 mg 8 mg, | | 16 9:21 | | | | | Oral, ONCE, 09/12/15 at 2120, | | PM PDT | | | | | For 1 dose | | | | | | + +-------+ +------+---+---+ +---+---+ | | | +---+---+ + +-------+ +---------+---+---+ | promethazine (PHENERGAN) (IV | Given | 09/12/19 | 12.5 mg | | | | ONLY) injection 12.5 mg 12.5 mg, | | 16 10:37 | | | | | Intravenous, EVERY 6 HOURS PRN, | | PM PDT | | | | | Nausea, Vomiting, Starting Wed | | | | | | | 09/12/15 at 2207, Vesicant. When | | | | | | | ordered IV push: Dilute to | | | | | | | 10-20mL with NS. Give over 2-3 | | | | | | | minutes into large vein. Do not | | | | | | | give in hand/wrist or foot/ankle | | | | | | | vein. Max dose 12.5mg if giving | | | | | | | peripherally., | | | | | | + +-------+ +---------+---+---+ +---+---+ | | | +---+---+ + + + +---------+---+---+ | promethazine (PHENERGAN) 25 mg | Dispense | 09/12/19 | 12.5 mg | | | | tablet (ER Prepack) 12.5-25 mg | to Home | 16 11:46 | | | | | 12.5-25 mg, Oral, ONCE, Wed | | PM PDT | | | | | 09/12/15 at 2325, For 1 dose, 1-2 | | | | | | | tablet(s) every 6 hours prn | | | | | | | nausea or vomiting Dispense for | | | | | | | home use., | | | | | | + + + +---------+---+---+ +---+---+ | | | +---+---+ + +---------+ +--------+-------+---+ | sodium chloride 0.9% (NS) bolus | New Bag | 09/12/19 | 1,000 | 1000 | | | 1,000 mL 1,000 mL, Intravenous, | | 16 10:38 | mLs | mL/hr | | | Administer over 1 Hours, ONCE, | | PM PDT | | | | | 09/12/15 at 2210, For 1 dose | | | | | | + +---------+ +--------+-------+---+ +---+---+ | | | +---+---+ documented in this encounter
--- OUTSIDE RECORDS SUMMARY | ~2019-12-06 | XMS | Encounter Summary ---
Demographics + + + | Address | [address] | | | [place] [address] | + + + | Home Phone | | + + + | Preferred Language | Unknown | + + + | Marital Status | | + + + | Hindu Affiliation | 1013 | + + + | Race | Unknown | + + + | Ethnic Group | Unknown | + + + Author + + + | Author | [facility] | | | and [place] | + + + | Organization | [facility] | | | and [place] | + + + | Address | Unknown | + + + | Phone | Unavailable | + + + Support + + + + + | Name | Relationship | Address | Phone | + + + + + | Trevin Rocha | ECON | [address] | | | | | [place] [address] | | + + + + + Care Team Providers + +------+ + | Care Chip Bin Conveyor Tender Name | Role | Phone | + +------+ + PCP | Unavailable | + +------+ + Encounter Details +--------+ + + + + | Date | Type | Department | Care Team | Description | +--------+ + + + + | 06/11/ | [facility] | [facility] | Oral Shine, | | | 2010 | Encounter | MED CTR EMERG[facility]Y | [address] | | | | | CENTER [address] | [place] | | | | | [place] | [id number] | | | | | [address] | | | | | | [phone] | | | +--------+ + + + [...]
--- OUTSIDE RECORDS SUMMARY | ~2019-12-06 | XMS | Encounter Summary ---
Demographics + + + | Address | [address] | | | [place] [address] | + + + | Home Phone | | + + + | Preferred Language | Unknown | + + + | Marital Status | | + + + | Mu-Ism Affiliation | 1013 | + + + | Race | Unknown | + + + | Ethnic Group | Unknown | + + + Author + + + | Author | [facility] | | | and [place] | + + + | Organization | [facility] | | [...] [address] | | | | | [place] [address] | | + + + + + Care Team Providers + +------+ + | Care Pneumatic Systems Operator Name | Role | Phone | + +------+ + PCP | Unavailable | + +------+ + Encounter Details +--------+ + + + + | Date | Type | Department | Care Team | Description | +--------+ + + + + | 04/10/ | Hospital | [facility] | | | | 1993 - | Encounter | MED CTR NURSERY | | | | | | [address] | | | | 04/11/ | | [place] [address] | | | | 1993 | | [phone] | | | +--------+ + + + [...]
--- OUTSIDE RECORDS SUMMARY | ~2019-12-06 | XMS | Encounter Summary ---
Demographics + + + | Address | [address] | | | [place] [address] | + + + | Home Phone | | + + + | Preferred Language | Unknown | + + + | Marital Status | | + + + | Synagogue Affiliation | 1013 | + + + | Race | Unknown | + + + | Ethnic Group | Unknown | + + + Author + + + | Author | [facility] | | | and [place] | + + + | Organization | [facility] | | | and [place] | + + + | Address | Unknown | + + + | Phone | Unavailable | + + + Support + + + + + | Name | Relationship | Address | Phone | + + + + + | Trevin Rocha | ECON | [address] | | | | | [place] [address] | | + + + + + Care Team Providers + +------+ + | Care Harmonic Analyst Name | Role | Phone | + +------+ + | Freddie Sears DO | PCP | | + +------+ + Reason for Visit + +--------+ + | Reason | Onset | Comments | | | Date | | + +--------+ + | Medication Question | 12/24/ | | | | 2019 | | + +--------+ + Encounter Details +--------+ + + + + | Date | Type | Department | Care Team | Description | +--------+ + + + + | 12/24/ | Telephone | [facility] | Angel Tolentino | Medication Question | | 2018 | | GASTROENTEROLOGY | MD [address] | | | | | [address] [place] | [address] | | | | | [address] | [place] [address] | | | | | [address] | [phone] | | | | | [phone] | | | +--------+ + + + [...] + + documented as of this encounter Miscellaneous Notes Telephone Encounter - Lyric Purcell RN - 12/24/2018 9:48 AM PDTPatient called in r egarding bowel prep; she states Michael has not received it yet; advised it has not gone through; tried to fax it last night and again this morning but there was an error; explained I would call it in; she asked if I could send it to [facility] instead; re-routed rx to [facility]ed in this encounter Plan of Treatment Not on filedocumented as of this encounter Visit Diagnoses Not on filedocumented in this encounter"
--- OUTSIDE RECORDS SUMMARY | ~2019-12-06 | XMS | Encounter Summary ---
Demographics + + + | Address | [address] | | | [place] [address] | + + + | Home Phone | | + + + | Preferred Language | Unknown | + + + | Marital Status | | + + + | Christian Affiliation | 1013 | + + + | Race | Unknown | + + + | Ethnic Group | Unknown | + + + Author + + + | Author | [facility] | | | and [place] | + + + | Organization | [facility] | | | and [place] | + + + | Address | Unknown | + + + | Phone | Unavailable | + + + Support + + + + + | Name | Relationship | Address | Phone | + + + + + | Trevin Rocha | ECON | [address] | | | | | [place] [address] | | + + + + + Care Team Providers + +------+ + | Care Gas Or Petroleum Operator Name | Role | Phone | [...] | +--------+ + + + + | 06/26/ | Emergency | [facility] | Arnaud Peters MD | Calculus of | | 2017 | | [facility] CTR EMERG[facility]Y | [address] | gallbladder without | | | | CENTER [address] | [place], [place] | cholecystitis | | | | [place], [place] | [address] | without obstruction | | | | [phone] | | (Primary Dx) | | | | [phone] | | | +--------+ + + + [...] + + + | Blood Pressure | 106/67 | 06/26/2016 4:20 PM | | | | | PST | | + + + + + | Pulse | 60 | 06/26/2016 4:20 PM | | | | | PST | | + + + + + | Temperature | 36.7 C (98 F) | 06/26/2016 1:52 PM | | | | | PST | | + + + + + | Respiratory Rate | 15 | 06/26/2016 4:20 PM | | | | | PST | | + + + + + | Oxygen Saturation | 96% | 06/26/2016 4:20 PM | | | | | PST | | + + + + + | Inhaled Oxygen | - | - | | | Concentration | | | | + + + + + | Weight | 96.2 kg (212 lb) | 06/26/2016 1:52 PM | | | | | PST | | + + + + + | Height | 172.7 cm (5' 8") | 06/26/2016 1:52 PM | | | | | PST | | + + + + + | Body Mass Index | 32.23 | 06/26/2016 1:52 PM | | | | | PST | | + + + + + documented in this encounter Discharge Instructions Instructions Arnaud Peters MD - 06/26/2016Nausea medication as needed May start no pain medication as needed, do not take with the hydrocodone May also use sasi-olb-[id number] ibuprofen 3-4 tablets, it is okay to use this with the other prescribed pain medication Rest and plenty of fluids Avoid fatty foods Follow-up with surgery Return for worsening symptoms, not improving, other new complaints AttachmentsThe following attachments cannot be sent through Care Everywhere.GALLSTONES, WHA T ARE ([place])documented in this encounter Medications at Time of [...] + + + +---------+ + + | HYDROmorphone | Take 1 tablet by | 30 | 0 | 06/26/19 | | | (DILAUDID) 2 mg | mouth every 6 hours | tablet | | 17 | 8 | | tablet | as needed for [...] ondansetron | Take 1 tablet by | 20 | 0 | 06/26/19 | | | (ZOFRAN ODT) 8 mg | mouth every 8 hours | tablet | | 17 | [...] documented as of this encounter ED Notes Arnaud Peters MD - 06/26/2016 3:21 PM PST Emergency Department Encounter NotE CHIEF COMPLAINT: Abdominal pain HPI Kassy Roche is a 21 y.o. female who presents to the Emergency Department wit h abdominal pain that's been ongoing for the past several days. He's been intermittent. Hi s most in the right upper quadrant. It does radiate to her back. She's not had fever. She 's had some nausea. She had a couple episodes of emesis. She was seen recently had labs ar e reassuring but had an ultrasound revealing gallstones. She did not have clinical or radio graphic cholecystitis. She's not had chest pain. No shortness of breath. She's not had pr evious abdominal surgeries. She had been trying to take pain medication at home however it was making her nauseated and she was unable to keep it down. PAST MEDICAL & SURGICAL HISTORY History reviewed. No pertinent past medical history. Past Surgical History Procedure Laterality Date [place] tooth extraction SOCIAL HISTORY: Social History Social History Marital Status: Single Spouse Name: N/A Number of Children: N/A Years of Education: N/A Social History Main Topics Smoking status: Never Smoker Smokeless tobacco: Never Used Alcohol Use: No Drug Use: No Sexual Activity: Not Asked Other Topics Concern None Social History Narrative And as reviewed in nursing notes CURRENT MEDICATIONS Previous Medications HYDROCODONE-ACETAMINOPHEN (NORCO) 5-325 MG PER TABLET Take 1-2 tablets by mouth every 6 hours as needed for Pain. IBUPROFEN (ADVIL,MOTRIN) 600 MG TABLET Take 1 tablet by mouth every 8 hours as needed f or Pain. ONDANSETRON (ZOFRAN ODT) 4 MG DISINTEGRATING TABLET Take 1 tablet by mouth every 6 hour s as needed for Nausea. 27-0.8 MG MULTIVITAMIN TABLET Take 1 tablet by mouth Daily. ALLERGIES No Known Allergies REVIEW OF SYSTEMS As in history of present illness. A 10 system of review was otherwise negative. PHYSICAL EXAM VITAL SIGNS: (first vital signs):Temp: 36.7 C (98 F) Pulse: 69 Resp: 22 SpO2: 97 % BP: 104/67 mmHg General: Alert, appears well, non toxic HEENT: Normocephalic, atraumatic, OP clear, PERRL, EOMI Neck: supple, full range of motion, no tracheal deviation Cardiovascular: Normal rate and rhythm, no murmurs, rubs or gallops Pulmonary: CTA bilateral, no wheeze/rhonci or resp distress Abdominal: Soft, some upper quadrant tenderness, no rebound or guarding, no Malone's sign Musculoskeletal: normal ROM, no tenderness Neurologic: Alert, no cranial nerve deficits, no focal deficits Skin: warm and dry LABS CBC unremarkable CMP ALT 72 similar to previous, normal bilirubin Lipase negative ASSESSMENT & ED COURSE: Patient here with biliary colic secondary to cholelithiasis. She is not appear to have cho lecystitis either by exam or by labs. She did have an ultrasound of the does not reveal rad iologic findings of cholecystitis. She is treated here with pain control. I did discuss th e case with Dr. Lyn who recommends follow-up with his office. She is not appear to need a cute admission or acute surgery at this time. She's feeling much improved after pain contro l. We'll go ahead and change her pain control given she has been quite nauseated with hydro codone. DISPOSITION: Discharge FINAL IMPRESSION: Cholelithiasis Arnaud Peters MD 06/26/16 1911 Edyta monsalve in this encounter Miscellaneous Notes ED Triage Notes - Yessica Stevenson RN - 06/26/2016 1:50 PM PSTHere on tues for randy Alanis, diagnosed with gallstones, unable to take vicodin for pain, it causes increased nausea - "m akes me sick, vomiting and not able to eat" was told to follow up with PCP has an apt for tu es, but is still in pain, and distress now. Would like to be re-evaluated. Yessica Stevenson documented in this enc ounter Plan of Treatment Not on filedocumented as of this encounter Procedures + +--------+ + + + | Procedure Name | Priori | Date/Time | Associated Diagnosis | Comments | | | ty | | | | + +--------+ + + + | CBC W/AUTO | STAT | 06/26/2016 | | Results for this | | DIFFERENTIAL | | 3:32 PM | | procedure are in the | | | | PST | | results section. | + +--------+ + + + | LIPASE | STAT | 06/26/2016 | | Results for this | | | | 3:32 PM | | procedure are in the | | | | PST | | results section. | + +--------+ + + + | COMPREHENSIVE | STAT | 06/26/2016 | | Results for this | | METABOLIC PANEL | | 3:32 PM | | procedure are in the | | | | PST | | results section. | + +--------+ + + + documented in this encounter Results Lipase (06/26/2016 3:32 PM PST) + +-------+ + + + | Component | Value | Ref Range | Performed | Pathologist | | | | | At | Signature | + +-------+ + + + | Lipase | 29 | 0 - 60 U/L | [facility] | | | | | [...] ST. | [address] | [place], [place] | [phone] | | [facility] | | [address] | | | - LABORATORY | | | | + + + + + Comprehensive Metabolic Panel (06/26/2016 3:32 PM PST) + + + + + + | Component | Value | Ref Range | Performed | Pathologist | | | | | At | Signature | + + + + + + | Na | 141 | 136 - 149 | [facility] | | | | | mmol/L | [facility] | | | | | | MEDICAL | | | | | | CENTER - | | | | | | LABORATORY | | + + + + + + | K | 4.0 | 3.5 - 5.1 | [facility] | [...] + + + + | CO2 | 26 | 24 - 31 mmol/L | [facility] | | | | | | [facility] | | | | | | MEDICAL | | | | | | CENTER - | | | | | | LABORATORY | | + + + + + + | Anion Gap | 8 | 3 - 16 mmol/L | [facility] | | | | | | [facility] | | | | | | MEDICAL | | | | | | CENTER - | | | | | | LABORATORY | | + + + + + + | Glucose | 97 | 70 - 109 mg/dL | [facility] | | | | | | [facility] | | | | | | MEDICAL | | | | | | CENTER - | | | | | | LABORATORY | | + + + + + + | BUN | 16 | 7 - 18 mg/dL | [facility] | | | | | | [facility] | | | | | | MEDICAL | | | | | | CENTER - | | | | | | LABORATORY | | + + + + + + | Creatinine | 0.86 | 0.60 - 1.30 | [facility] | | | | | mg/dL | [facility] | | | | | | MEDICAL | | | | | | CENTER - | | | | | | LABORATORY | | + + + + + + | eGFR if not | >60Comment: GLOMERULAR | >=60 | [facility] | | | | FILTRATION | mL/min/1.73m2 | [facility] | | | STATELESS | RATE,ESTIMATED | | MEDICAL | | | | mL/min/1.78p7Naig than | | CENTER - | | [...] + + + + | Calcium | 9.4 | 8.3 - 10.5 | [facility] | | | | | mg/dL | [facility] | | | | | | MEDICAL | | | | | | CENTER - | | | | | | LABORATORY | | + + + + + + | Albumin | 4.2 | 3.2 - 5.0 g/dL | [facility] | | | | | | [facility] | | | | | | MEDICAL | | | | | | CENTER - | | | | | | LABORATORY | | + + + + + + | Bilirubin | 0.9Comment: This is an | 0.1 - 1.5 [...] + + + + | AST | 38Comment: This is an | 10 - 42 U/L | [facility] | | | | appended report. These | | [facility] | | | | results have been | | MEDICAL | | | | appended to a previously | | CENTER - | | | | preliminary verified | | LABORATORY | | | | report. | | | | + + + + + + | ALT | 72 (H)Comment: This is | 6 - 45 [...] + + + + | Alkaline | 68Comment: This is an | 40 - 110 [...] + + + + | Globulin | 2.7 | 2.1 - 3.8 g/dL | [facility] | | | | | | [facility] | | | | | | MEDICAL | | | | | | CENTER - | | | | | | LABORATORY | | + + + + + + | Albumin/Glendy | 1.6 | 0.8 - 2.0 | [facility] | | | bulin Ratio | | | [facility] | | | | | | MEDICAL | | | | | | CENTER - | | | | | | LABORATORY | | + + + + + + | BUN/Creatin | 18.6 | | [facility] | | | ine Ratio | | | [facility] | | [...] [address] | [place] | [phone] | | [facility] | | [address] | | | - LABORATORY | | | | + + + + + CBC w/ Auto Differential (06/26/2016 3:32 PM PST) + + + + + + | Component | Value | Ref Range | Performed | Pathologist | | | | | At | Signature | + + + + + + | White Blood | 7.9 | 4.0 - 11.0 K/uL | [facility] | | | Cells | | | [facility] | | | | | | MEDICAL | | | | | | CENTER - | | | | | | LABORATORY | | + + + + + + | Red Blood | 4.55 | 3.70 - 5.20 | [facility] | [...] + + + + | Hematocrit | 40.9 | 34.0 - 47.0 % | [facility] | | | | | | [facility] | | | | | | MEDICAL | | | | | | CENTER - | | | | | | LABORATORY | | + + + + + + | MCV | 89.8 | 83.0 - 101.0 fL | [facility] | | | | | | [facility] | | | | | | MEDICAL | | | | | | CENTER - | | | | | | LABORATORY | | + + + + + + | MCH | 30.8 | 28.0 - 35.0 pg | [facility] [...] + + + + | RDW-CV | 12.8 | <15.0 % | [facility] | | | | | | [facility] | | | | | | MEDICAL | | | | | | CENTER - | | | | | | LABORATORY | | + + + + + + | Platelet | 263 | 140 - 440 K/uL | [facility] [...] + + + + | % | 74.5 | 45.0 - 82.0 % | [facility] | | | Neutrophils | | | [facility] | | | | | | MEDICAL | | | | | | CENTER - | | | | | | LABORATORY | | + + + + + + | % | 19.9 (L) | 20.0 - 45.0 % | [facility] | | | Lymphocytes | | | [facility] | | | | | | MEDICAL | | | | | | CENTER - | | | | | | LABORATORY | | + + + + + + | % Monocytes | 4.1 | 4.0 - 12.0 % | [facility] | | | | | | [facility] | | | | | | MEDICAL | | | | | | CENTER - | | | | | | LABORATORY | | + + + + + + | % | 0.7 | 0.0 - 5.0 % | [facility] | | | Eosinophils | | | [facility] | | | | | | MEDICAL | | | | | | CENTER - | | | | | | LABORATORY | | + + + + + + | % Basophils | 0.8 | 0.0 - 1.0 % | [facility] | | | | | | [facility] | | | | | | MEDICAL | | | | | | CENTER - | | | | | | LABORATORY | | + + + + + + | Absolute | 5.90 | 1.80 - 8.50 | [facility] | | | Neutrophils | | K/uL | [facility] | | | | | | MEDICAL | | | | | | CENTER - | | | | | | LABORATORY | | + + + + + + | Absolute | 1.60 | 0.60 - 3.20 | [facility] | | | Lymphocytes | | K/uL | [facility] | | | | | | MEDICAL | | | | | | CENTER - | | | | | | LABORATORY | | + + + + + + | Absolute | 0.30 | 0.00 - 1.00 | [facility] | | | Monocytes | | K/uL | [facility] | | | | | | MEDICAL | | | | | | CENTER - | | | | | | LABORATORY | | + + + + + + | Absolute | 0.10 | 0.00 - 0.40 | [facility] | | | Eosinophils | | K/uL | [facility] | | | | | | MEDICAL | | | | | | CENTER - | | | | | | LABORATORY | | + + + + + + | Absolute | 0.10 | 0.00 - 0.10 | [facility] | | | Basophils | | K/uL | [facility] | | | | [...] ST. | [address] | [place], [place] | [phone] | | [facility] | | [address] | | | - LABORATORY | | [...] | | | + +--------+ +--------+------+------+ | HYDROmorphone (DILAUDID) | Given | 06/26/19 | 0.5 mg | | | | injection 0.5 mg 0.5 mg, | | 17 3:32 | | | | | Intravenous, ONCE, [facility] 06/26/16 at | | PM PST | | | | | 1510, For 1 dose | | | | | | + +--------+ +--------+------+------+ +---+---+ | | | +---+---+ + +-------+ +-------+---+---+ | ketorolac (TORADOL) injection | Given | 06/26/19 | 15 mg | | | | 15 mg 15 mg, Intravenous, ONCE, | | 17 3:32 | | | | | [facility] 06/26/16 at 1510, For 1 dose | | PM PST | | | | + +-------+ +-------+---+---+ +---+---+ | | | +---+---+ + +-------+ +------+---+---+ | ondansetron (ZOFRAN) injection | Given | 06/26/19 | 4 mg | | | | 4 mg 4 mg, Intravenous, ONCE, | | 17 3:32 | | | | | [facility] 06/26/16 at 1510, For 1 dose | | PM PST | | | | + +-------+ +------+---+---+ +---+---+ | | | +---+---+ + +---------+ +--------+-------+---+ | sodium chloride 0.9% (NS) bolus | New Bag | 06/26/19 | 1,000 | 1000 | | | 1,000 mL 1,000 mL, Intravenous, | | 17 3:28 | mLs | mL/hr | | | Administer over 1 Hours, ONCE, | | PM PST | | | | | [facility] 06/26/16 at 1510, For 1 dose | | | | | | + +---------+ +--------+-------+---+ +---+---+ | | | +---+---+ documented in this encounter
--- OUTSIDE RECORDS SUMMARY | ~2019-12-06 | XMS | Encounter Summary ---
Demographics + + + | Address | [address] | | | [place] [address] | + + + | Home Phone | | + + + | Preferred Language | Unknown | + + + | Marital Status | | + + + | Hinduism Affiliation | 1013 | + + + | Race | Unknown | + + + | Ethnic Group | Unknown | + + + Author + + + | Author | [facility] | | | and [place] | + + + | Organization | [facility] | | | and [place] | + + + | Address | Unknown | + + + | Phone | Unavailable | + + + Support + + + + + | Name | Relationship | Address | Phone | + + + + + | Trevin Rocha | ECON | [address] | | | | | [place] [address] | | + + + + + Care Team Providers + +------+ + | Care Laborer [employer] Name | Role | Phone | + +------+ + | Freddie Sears DO | PCP | | + +------+ + Reason for Visit + +--------+ + | Reason | Onset | Comments | | | Date | | + +--------+ + | Procedure | 12/23/ | colonoscopy | | | 2019 | | + +--------+ + Encounter Details +--------+ + + + + | Date | Type | Department | Care Team | Description | +--------+ + + + + | 12/23/ | [facility] | [facility] Angel Tol[facility] | Procedure | | 2019 | | GASTROENTEROLOGY | MD Ryan [address] | (colonoscopy) | | | | [address] [place] | [address] [facility] | | | | | [address], [place] | [place] [address] | | | | | [address] | [phone] | | | | | [phone] | | | +--------+ + + + [...] Telephone Encounter - Lyric Purcell RN - 12/23/2018 10:11 AM PDTPatient called the clinic to schedule procedure. Scheduled pt for colonoscopy with IVCS sedation (rectal bleedi ng) on Thu12/31/[address] Tolentino; standard prep reviewed: low fiber diet Thu/Thu be fore procedure; Thur follow a clear liquid day before with bowel prep at 4pm/8pm or 4pm depe nding on prep until complete; Medications, surg/med hx, and allergies were reviewed; rx to [facility] pharmacy; info via [employer] to pt; completed case request order, notes to JOSE G. documented in is encounter Plan of Treatment Not on filedocumented as of this encounter Visit Diagnoses + + | Diagnosis | + + | Rectal bleeding - Primary Hemorrhage of rectum and anus | + + documented in this encounter"
--- OUTSIDE RECORDS SUMMARY | ~2019-12-06 | XMS | Encounter Summary ---
Demographics + + + | Address | [address] | | | [place] [address] | + + + | Home Phone | | + + + | Preferred Language | Unknown | + + + | Marital Status | | + + + | Zoroastrian Affiliation | 1013 | + + + | Race | Unknown | + + + | Ethnic Group | Unknown | + + + Author + + + | Author | [facility] | | | and [place] | + + + | Organization | [facility] | | | and [place] | + + + | Address | Unknown | + + + | Phone | Unavailable | + + + Support + + + + + | Name | Relationship | Address | Phone | + + + + + | Trevin Rocha | ECON | [address] | | | | | [place] [address] | | + + + + + Care Team Providers + +------+ + | Care Surgical Assistant Name | Role | Phone | + [...] [address] | | | | | ID | | [place], | | | | | COLONOSCOPY | | [place] [address] | | | | | FLX DX | | Phone: | | | | | W/COLLJ SPEC | | [phone] | | | | | WHEN PFRMD | | Fax: | | | | | ID | | [phone] | | | | | COLONOSCOPY | | | | | | | W/BIOPSY | | | | | | | SINGLE/MULTI | | | | | | | PLE ID | | | | | | | [...] | +--------+ + + + + | 12/31/ | Hospital | [facility] | William Larry | Rectal bleeding; | | 2019 | Encounter | [facility] OP | MD Sesar Davis W | Diarrhea, | | | | [address] | [address] [place] | unspecified type | | | | [place], [place] | [place] [address] | | | | | [address] | [phone] | | | | | [phone] | | | +--------+ + + + [...] + + + | Blood Pressure | 110/63 | 12/31/2018 9:45 AM | | | | | PDT | | + + + + + | Pulse | 52 | 12/31/2018 9:55 AM | | | | | PDT | | + + + + + | Temperature | 36.3 C (97.3 F) | 12/31/2018 8:01 AM | | | | | PDT | | + + + + + | Respiratory Rate | 18 | 12/31/2018 9:45 AM | | | | | PDT | | + + + + + | Oxygen Saturation | 97% | 12/31/2018 9:55 AM | | | | | PDT [...] Class 1 (can visualize the entire tonsil) [place] [employer] Anest[employer] Grade:ASA 1 - A [...] Electronically Signed by: William Larry MD 12/31/2018 [facility] VERIFICATION OF CONSENT (PARQ) The patient was counseled regarding the procedure, its indications, risks, potential compli cations and alternatives. Any questions were answered. Consent was obtained. William Larry MD, 12/31/2018 8:51 [facility] Portions of this chart may have been created with [employer] voice recognition software. Occasi onal wrong-word or [...] Exams Patient: Kassy Rocha : 1995 Acct: [id number] Exam Date: Monday, December 31, 2018 Doctor: [...] If unable to reach your physician, call [facility] Emergency Department at [address] Your doctor [...] | [facility] | | GastroenterologyPatient Name: Kassy Ralph Date: | PROVATION | | 12/31/2018 8:50 AMMRN: [id number] #: [id number] of : | | | 1995Admit Type: [...] evaluated | | | using the BBPS ([place] Bowel Preparation Scale) with scores of: | [...] Scope In: 9:10:13 AMScope Out: 9:23:47 AM [facility] | | | [place], [address] [place] [address] | | | [phone] | | |Recommendation: | | | - [...] |Scope Out: 9:23:47 AM | | | [facility], [address] [place] [address] | | | [phone] | | + + -+ + +---------+ [...] | 1.010, 1.015, | | | | [place], | | 1.020, 1.025 | | | | POC | | | | | + + + + + + | Lot Number | [id number] | | | | + + + [...] RANDOM COLON BIOPSY SPECIMEN SOURCE: Bryan [facility] | | COLON BIOPSY [...] | mucosa, negative for specific diagnostic abnormality. JVR:[facility]:[id number] | | | GROSS DESCRIPTION: The specimen, [...] | | technical component was performed by [employer], [address] [place] [address] | | | [place] [address] (Imaging Center Manager: Rosa M Khan MD; CLIA# | | | [id number]). Professional interpretation was performed by [employer] | | | [employer], [address] | | | [address] [place] [address] (Imaging Center Manager: Luther | | | Germain Potts). Diagnostician: [...] of rectum and anus | + + | Diarrhea, unspecified type | + + documented in this encounter [...] midazolam (VERSED) 5 mg/mL | Given | 01/01/20 | 1 mg [...]
--- OUTSIDE RECORDS SUMMARY | ~2019-12-06 | XMS | Encounter Summary ---
Demographics + + + | Address | [address] | | | [place] [address] | + + + | Home Phone | | + + + | Preferred Language | Unknown | + + + | Marital Status | | + + + | Orthodox Affiliation | 1013 | + + + | Race | Unknown | + + + | Ethnic Group | Unknown | + + + Author + + + | Author | [facility] | | | and [place] | + + + | Organization | [facility] | | | and [place] | + + + | Address | Unknown | + + + | Phone | Unavailable | + + + Support + + + + + | Name | Relationship | Address | Phone | + + + + + | Trevin Rocha | ECON | [address] | | | | | [place] [address] | | + + + + + Care Team Providers + +------+ + | Care Visiting Housekeeper Name | Role | Phone | + +------+ + | Freddie Sears DO | PCP | | + +------+ + Encounter Details +--------+ + + + + | Date | Type | Department | Care Team | Description | +--------+ + + + + | 12/09/ | Hospital | [facility] | Freddie Sears, | Supervision of | | 2016 | Encounter | [address] | DO [address] | normal , | | | | [place], [place] | [place], [place] | second trimester | | | | [phone] | [address] | | | | | [phone] | [phone] | | | | | | | | +--------+ + + + [...] + +--------+ + + + | US OB 14 + WEEKS | Routin | 12/10/2015 | Supervision of | Results for this | | SINGLE OR FIRST | e | 1:00 PM | normal , | procedure are in the | | GESTATION | | PDT | second trimester | results section. | + +--------+ + + + documented in this encounter Results US OB 14 + Week Singl or First Gestation (12/10/2015 1:00 PM PDT) + + | Specimen | + + | | + + + + + | Narrative | Performed At | + + + | US OB 14 + WEEKS SINGLE OR FIRST GESTATION 12/10/2015 1:00 PM | [facility] | | HISTORY: Supervision of normal , second trimester. | | | 20-year-old at 19 weeks 4 days gestation by dates. | | | COMPARISON: None available FINDINGS: BPD: 45.6 mm = 19 weeks 5 | | | days HC: 166.7 mm = 19 weeks 3 days AC: 127.6 mm = 18 weeks 3 days | | | FL: 28.3 mm = 18 weeks 5 days EFW: 249 g, corresponding to 7 | | | percentile by LMP and 19 percentile by ultrasound. Cephalic index: | | | 86.6(normal range 70.0-86.0) HC/AC ratio: 1.31 Composite estim. | | | gestational age by U/S: 19 weeks 1 day heart rate: 147 bpm, | | | with a normal cardiac rhythm. The cervix is long and closed, | | | measuring 3.3 cm in length. The placenta is on the, without evidence | | | of placenta previa. The uterus and adnexal regions are unremarkable. | | | The fetus is in cephalic. Amniotic fluid is subjectively normal. | | | Active motion is seen. The intracranial anatomy, spine, face, | | | nose/lips, four-chamber heart with normal right and left ventricular | | | outflow tracts, diaphragm, stomach, kidneys, urinary bladder, | | | 3-vessel cord, and upper and lower extremities are normal. No | | | malformations are seen. Because of position, cord | | | insertion is not well visualized. IMPRESSION - 1. Single living | | | intrauterine fetus in cephalic presentation. 2. Normal anatomic | | | survey, except for incompletely visualized cord insertion. | | | Follow-up scanning later in the second trimester is recommended for | | | this area. 3. Growth consistent with dates. Dictated and Signed | | | by: Richard Worthy MD Electronically signed: 12/11/2015 10:50 AM | | + + + + + | Procedure Note | + + | Rohit, Rad Results In - 12/11/2015 10:53 AM PDT US OB 14 + WEEKS SINGLE OR FIRST | | GESTATION 12/10/2015 1:00 PMHISTORY: Supervision of normal , second trimester. | | 20-year-old at 19 weeks 4 days gestation by dates.COMPARISON: None | | availableFINDINGS:BPD: 45.6 mm = 19 weeks 5 daysHC: 166.7 mm = 19 weeks 3 daysAC: 127.6 | | mm = 18 weeks 3 daysFL: 28.3 mm = 18 weeks 5 daysEFW: 249 g, corresponding to 7 | | percentile by LMP and 19 percentile byultrasound.Cephalic index: 86.6(normal range | | 70.0-86.0)HC/AC ratio: 1.31Composite estim. gestational age by U/S: 19 weeks 1 dayFetal | | heart rate: 147 bpm, with a normal cardiac rhythm.The cervix is long and closed, | | measuring 3.3 cm in length.The placenta is on the, without evidence of placenta previa. | | The uterus and adnexal regions are unremarkable.The fetus is in cephalic. Amniotic fluid | | is subjectively normal.Active motion is seen. The intracranial anatomy, spine, | | face, nose/lips,four-chamber heart with normal right and left ventricular outflow | | tracts,diaphragm, stomach, kidneys, urinary bladder, 3-vessel cord, and upper and | | lowerextremities are normal. No malformations are seen. Because of fetalposition, | | cord insertion is not well visualized.IMPRESSION -1. Single living intrauterine | | fetus in cephalic presentation.2. Normal anatomic survey, except for incompletely | | visualized cordinsertion. Follow-up scanning later in the second trimester is | | recommended forthis area.3. Growth consistent with dates.Dictated and Signed by: Rcihard | | MD Deacon Electronically signed: 12/11/2015 10:50 AM | |The cervix is long and closed, measuring 3.3 cm in length. | |The placenta is on the, without evidence of placenta previa. | |The uterus and adnexal regions are unremarkable. | | | |The fetus is in cephalic. Amniotic fluid is subjectively normal. | |Active motion is seen. The intracranial anatomy, spine, face, nose/lips, | |four-chamber heart with normal right and left ventricular outflow tracts, | |diaphragm, stomach, kidneys, urinary bladder, 3-vessel cord, and upper and lower | |extremities are normal. No malformations are seen. Because of | |position, cord insertion is not well visualized. | | | |IMPRESSION - | |1. Single living intrauterine fetus in cephalic presentation. | |2. Normal anatomic survey, except for incompletely visualized cord | |insertion. Follow-up scanning later in the second trimester is recommended for | |this area. | |3. Growth consistent with dates. | | | |Dictated and Signed by: Richard Worthy MD | | Electronically signed: 12/11/2015 10:50 AM | + + + +---------+ + + | Performing | Address | City/State/Zipcode | Phone Number | | Organization | | | | + +---------+ + + | [facility] | | | | + +---------+ + + documented in this encounter Visit Diagnoses + + | Diagnosis | + + | Supervision of normal , second trimester | + + documented in this encounter"
--- OUTSIDE RECORDS SUMMARY | ~2019-12-06 | XMS | Encounter Summary ---
Demographics + + + | Address | [address] | | | [place] [address] | + + + | Home Phone | | + + + | Preferred Language | Unknown | + + + | Marital Status | | + + + | Catholic Affiliation | 1013 | + + + | Race | Unknown | + + + | Ethnic Group | Unknown | + + + Author + + + | Author | [facility] | | | and [place] | + + + | Organization | [facility] | | | and [place] | + + + | Address | Unknown | + + + | Phone | Unavailable | + + + Support + + + + + | Name | Relationship | Address | Phone | + + + + + | Trevin Rocha | ECON | [address] | | | | | [place] [address] | | + + + + + Care Team Providers + +------+ + | Care Corporate Legal Assistant Name | Role | Phone | + +------+ + | Freddie Sears DO | PCP | | + +------+ + Encounter Details +--------+ + + + + | Date | Type | Department | Care Team | Description | +--------+ + + + + | 08/07/ | Hospital | [facility] | Alena Roberson | Encounter for | | 2018 | Encounter | [address] | [place], DO [address] | supervision of | | | | [place], [place] | [address] [place] | normal , | | | | [phone] | [place] [address] | antepartum, | | | | [phone] | [phone] | unspecified | | | | | | | [...] OB 14 + WEEKS | Routin | 08/07/2017 | Encounter for | Results for this | | SINGLE OR FIRST | e | 7:45 AM | supervision of | procedure are in the | | GESTATION | | PST | normal , | results section. | | | | | antepartum, | | | | | | unspecified | | | | | | | | + +--------+ + + + documented in this encounter Results US OB 14 + Week Singl or First Gestation (08/07/2017 7:45 AM PST) + + | Specimen | + + | | + + + +--------- ------+ | Narrative | Performe d At | + +--------- ------+ | TECHNIQUE: | [facility] | | Routine transabdominal imaging of the uterus. CLINICAL INFORMATION: US | | | OB 14 + Week Singl or First Gestation. COMPARISON: None available. | | | FINDINGS:Intrauterine gestation(s): Single presentation: Breech. | | | Placenta location: Anterior and 6.8 cm away from the cervix. | | | Cervix: 4.8 cm in length and appears closed. MEASUREMENTS:Biparietal | | | diameter: 4.53 cm, corresponding to 19 weeks 5 days.Head | | | circumference: 17.45 cm, corresponding to 20 weeks 0 days.Abdominal | | | circumference: 14.60 cm, corresponding to 19 weeks 6 days.Femur | | | length: 3.37 cm, corresponding to 20 weeks 4 days. heart rate: | | | 147 bpm Cephalic index: 72%, normal. HC/AC ratio: 1.20, normal. | | | Amniotic fluid: Normal. Estimated weight: 336 grams. Estimated | | | gestational age by ultrasound is 20 weeks 0 days and by last | | | menstrualperiod is 21 weeks 2 days. Estimated date of delivery by | | | ultrasound is 12/25/2017 and by last menstrualperiod is 12/16/2017. | | | ANATOMIC SURVEY: Three-vessel cord: Normal.Abdominal cord | | | insertion: Normal. stomach: Normal.Urinary bladder: | | | Normal.Bilateral kidneys: Normal.Diaphragm: Normal. spine: | | | Normal.Lateral ventricles/choroid plexus: Normal.Cisterna magna: | | | Normal.Cerebellum: Normal.Four-chamber heart: Normal.Right | | | ventricular outflow tract: Normal.Left ventricular outflow tract: | | | Normal.Nose/Lips: Normal.Nasal bone: Present. IMPRESSION -1. Single | | | intrauterine with concordant dating as above. 2. The | | | placenta is anterior and well away from the internal cervical os.3. | | | Complete anatomic survey. Dictated and Signed by: Angel Caro, | | | Electronically signed: 08/07/2017 10:56 AM | | |Estimated gestational age by ultrasound is 20 weeks 0 days and by last menstrual | | |period is 21 weeks 2 days. | | |Estimated date of delivery by ultrasound is 12/25/2017 and by last menstrual | | |period is 12/16/2017. | | | | | | ANATOMIC SURVEY: | | |Three-vessel cord: Normal. | | |Abdominal cord insertion: Normal. | | | stomach: Normal. | | |Urinary bladder: Normal. | | |Bilateral kidneys: Normal. | | |Diaphragm: Normal. | | | spine: Normal. | | |Lateral ventricles/choroid plexus: Normal. | | |Cisterna magna: Normal. | | |Cerebellum: Normal. | | |Four-chamber heart: Normal. | | |Right ventricular outflow tract: Normal. | | |Left ventricular outflow tract: Normal. | | |Nose/Lips: Normal. | | |Nasal bone: Present. | | | | | | | | |IMPRESSION - | | |1. Single intrauterine with concordant dating as above. | | |2. The placenta is anterior and well away from the internal cervical os. | | |3. Complete anatomic survey. | | | | | |Dictated and Signed by: Angel Caro MD | | | Electronically signed: 08/07/2017 10:56 AM | | | | | + +--------- ------+ + + | Procedure Note | + + | Rohit, Rad Results In - 08/07/2017 10:59 AM PST TECHNIQUE: Routine transabdominal | | imaging of the uterus.CLINICAL INFORMATION: US OB 14 + Week Singl or First | | Gestation.COMPARISON: None available.FINDINGS:Intrauterine gestation(s): Single | | presentation: Breech. Placenta location: Anterior and 6.8 cm away from the cervix. | | Cervix: 4.8 cm in length and appears closed.MEASUREMENTS:Biparietal diameter: 4.53 cm, | | corresponding to 19 weeks 5 days.Head circumference: 17.45 cm, corresponding to 20 weeks | | 0 days.Abdominal circumference: 14.60 cm, corresponding to 19 weeks 6 days.Femur | | length: 3.37 cm, corresponding to 20 weeks 4 days. heart rate: 147 bpmCephalic | | index: 72%, normal. HC/AC ratio: 1.20, normal. Amniotic fluid: Normal.Estimated | | weight: 336 grams.Estimated gestational age by ultrasound is 20 weeks 0 days and by | | last menstrualperiod is 21 weeks 2 days. Estimated date of delivery by ultrasound is | | 12/25/2017 and by last menstrualperiod is 12/16/2017. ANATOMIC SURVEY: Three-vessel | | cord: Normal.Abdominal cord insertion: Normal. stomach: Normal.Urinary bladder: | | Normal.Bilateral kidneys: Normal.Diaphragm: Normal. spine: Normal.Lateral | | ventricles/choroid plexus: Normal.Cisterna magna: Normal.Cerebellum: | | Normal.Four-chamber heart: Normal.Right ventricular outflow tract: Normal.Left | | ventricular outflow tract: Normal.Nose/Lips: Normal.Nasal bone: Present.IMPRESSION -1. | | Single intrauterine with concordant dating as above. 2. The placenta is | | anterior and well away from the internal cervical os.3. Complete anatomic | | survey.Dictated and Signed by: Angel Caro MD Electronically signed: 08/07/2017 10:56 | | AM | |HC/AC ratio: 1.20, normal. | |Amniotic fluid: Normal. | | | |Estimated weight: 336 grams. | | | |Estimated gestational age by ultrasound is 20 weeks 0 days and by last menstrual | |period is 21 weeks 2 days. | |Estimated date of delivery by ultrasound is 12/25/2017 and by last menstrual | |period is 12/16/2017. | | | | ANATOMIC SURVEY: | |Three-vessel cord: Normal. | |Abdominal cord insertion: Normal. | | stomach: Normal. | |Urinary bladder: Normal. | |Bilateral kidneys: Normal. | |Diaphragm: Normal. | | spine: Normal. | |Lateral ventricles/choroid plexus: Normal. | |Cisterna magna: Normal. | |Cerebellum: Normal. | |Four-chamber heart: Normal. | |Right ventricular outflow tract: Normal. | |Left ventricular outflow tract: Normal. | |Nose/Lips: Normal. | |Nasal bone: Present. | | | | | |IMPRESSION - | |1. Single intrauterine with concordant dating as above. | |2. The placenta is anterior and well away from the internal cervical os. | |3. Complete anatomic survey. | | | |Dictated and Signed by: Angel Caro MD | | Electronically signed: 08/07/2017 10:56 AM | + + + +---------+ + + | Performing | Address | City/State/Zipcode | Phone Number | | Organization | | | | + +---------+ + + | [facility] | | | | + +---------+ + + documented in this encounter Visit Diagnoses + + | Diagnosis | + + | Encounter for supervision of normal , antepartum, unspecified | + + documented in this encounter"
--- OUTSIDE RECORDS SUMMARY | ~2019-12-06 | XMS | Encounter Summary ---
Demographics + + + | Address | [address] | | | [place] [address] | + + + | Home Phone | | + + + | Preferred Language | Unknown | + + + | Marital Status | | + + + | Orthodoxy Affiliation | 1013 | + + + | Race | Unknown | + + + | Ethnic Group | Unknown | + + + Author + + + | Author | [facility] | | | and [place] | + + + | Organization | [facility] | | | and [place] | + + + | Address | Unknown | + + + | Phone | Unavailable | + + + Support + + + + + | Name | Relationship | Address | Phone | + + + + + | Trevin Rocha | ECON | [address] | | | | | [place] [address] | | + + + + + Care Team Providers + +------+ + | Care Manager Data Name | Role | Phone | + +------+ + PCP | Unavailable | + +------+ + Encounter Details +--------+ + + + + | Date | Type | Department | Care Team | Description | +--------+ + + + + | 10/21/ | Hospital | [facility] | | | | 2004 | Encounter | [facility] | | | | | CENTER [address] | | | | | | [place] | | | | | | [address] | | | | | | [phone] | | | +--------+ + + + [...]
--- OUTSIDE RECORDS SUMMARY | ~2019-12-06 | XMS | Encounter Summary ---
Demographics + + + | Address | [address] | | | [place] [address] | + + + | Home Phone | | + + + | Preferred Language | Unknown | + + + | Marital Status | | + + + | Church Affiliation | 1013 | + + + | Race | Unknown | + + + | Ethnic Group | Unknown | + + + Author + + + | Author | [facility] | | | and [place] | + + + | Organization | [facility] | | | and [place] | + + + | Address | Unknown | + + + | Phone | Unavailable | + + + Support + + + + + | Name | Relationship | Address | Phone | + + + + + | Trevin Rocha | ECON | [address] | | | | | [place] [address] | | + + + + + Care Team Providers + +------+ + | Care Sleeve Fixer Name | Role | Phone | + +------+ + | Freddie Sears DO | PCP | | + +------+ + Encounter Details +--------+ + + + + | Date | Type | Department | Care Team | Description | +--------+ + + + + | 02/11/ | Hospital | [facility] | Francis Plata | Encounter for | | 2016 | Encounter | [address] | [place] [address] | supervision of | | | | [place] | [place], [place] | normal , | | | | [address] | [phone] | unspecified | | | | [phone] | [phone] | , | | | | | | unspecified | | | | | | trimester | +--------+ + + + + Social [...] - as directed | | 0 | 08 | | | | | | | [...] +--------+ + + + | US OB FOLLOW UP | Routin | 02/12/2016 | Encounter for | Results for this | | TRANSABDOMINAL | e | 3:45 PM | supervision of | procedure are in the | | | | PDT | normal , | results section. | | | | | unspecified | | | | | | , | | | | | | unspecified | | | | | | trimester | | + +--------+ + + + documented in this encounter Results US OB Follow Up Transabdominal (02/12/2016 3:45 PM PDT) + + | Specimen | + + | | + + + +--------- ------+ | Narrative | Performe d At | + +--------- ------+ | US OB FOLLOW | [facility] | | UP TRANSABDOMINAL 02/12/2016 3:45 PM HISTORY: Encounter for | | | supervision of normal , unspecified ,unspecified | | | trimester. 20-year-old at 28 weeks 5 days by menstrual | | | dates.Follow-up to complete anatomic survey ( cord | | | insertion) COMPARISON: 12/10/2015 FINDINGS:BPD: 75.1 mm = 30 weeks 1 | | | dayHC: 276.3 mm = 30 weeks 2 daysAC: 251.2 mm = 29 weeks 3 daysFL: | | | 55.9 mm equals 29 weeks 3 daysEFW: 1404 g, corresponding to 67 | | | percentile by LMP and 25th percentile byultrasound.Cephalic index: | | | 83.1(normal range 70.0-86.0)HC/AC ratio: 1.10Composite estim. | | | gestational age by U/S: 29 weeks 6 daysFetal heart rate: 141 bpm, with | | | a normal cardiac rhythm. The cervix is long and closed, measuring 3.9 | | | cm in length.The placenta is posterior/right lateral, without | | | evidence of placenta previa. The fetus is in cephalic presentation. | | | Amniotic fluid is subjectively normal.Active motion is seen. | | | Normal cord insertion is visualized. No fetalanomalies on the | | | remainder of limited survey. IMPRESSION -1. Single living intrauterine | | | fetus in cephalic presentation.2. Normal anatomic survey.3. | | | ultrasound size 8 days larger than dates. Dictated and Signed | | | by: Richard Worthy MD Electronically signed: 02/13/2016 8:10 AM | | |The cervix is long and closed, measuring 3.9 cm in length. | | |The placenta is posterior/right lateral, without evidence of placenta previa. | | | | | |The fetus is in cephalic presentation. Amniotic fluid is subjectively normal. | | |Active motion is seen. Normal cord insertion is visualized. No | | |anomalies on the remainder of limited survey. | | | | | |IMPRESSION - | | |1. Single living intrauterine fetus in cephalic presentation. | | |2. Normal anatomic survey. | | |3. ultrasound size 8 days larger than dates. | | | | | |Dictated and Signed by: Richard Worthy MD | | | Electronically signed: 02/13/2016 8:10 AM | | | | | + +--------- ------+ + + | Procedure Note | + + | Rohit, Rad Results In - 02/13/2016 8:14 AM PDT US OB FOLLOW UP TRANSABDOMINAL | | 02/12/2016 3:45 PMHISTORY: Encounter for supervision of normal , unspecified | | ,unspecified trimester. 20-year-old at 28 weeks 5 days by menstrual | | dates.Follow-up to complete anatomic survey ( cord insertion)COMPARISON: | | 12/10/2015FINDINGS:BPD: 75.1 mm = 30 weeks 1 dayHC: 276.3 mm = 30 weeks 2 daysAC: 251.2 | | mm = 29 weeks 3 daysFL: 55.9 mm equals 29 weeks 3 daysEFW: 1404 g, corresponding to 67 | | percentile by LMP and 25th percentile byultrasound.Cephalic index: 83.1(normal range | | 70.0-86.0)HC/AC ratio: 1.10Composite estim. gestational age by U/S: 29 weeks 6 daysFetal | | heart rate: 141 bpm, with a normal cardiac rhythm.The cervix is long and closed, | | measuring 3.9 cm in length.The placenta is posterior/right lateral, without evidence of | | placenta previa.The fetus is in cephalic presentation. Amniotic fluid is subjectively | | normal.Active motion is seen. Normal cord insertion is visualized. No | | fetalanomalies on the remainder of limited survey.IMPRESSION -1. Single living | | intrauterine fetus in cephalic presentation.2. Normal anatomic survey.3. | | ultrasound size 8 days larger than dates.Dictated and Signed by: Richard Worthy MD | | Electronically signed: 02/13/2016 8:10 AM | |HC/AC ratio: 1.10 | |Composite estim. gestational age by U/S: 29 weeks 6 days | | heart rate: 141 bpm, with a normal cardiac rhythm. | | | |The cervix is long and closed, measuring 3.9 cm in length. | |The placenta is posterior/right lateral, without evidence of placenta previa. | | | |The fetus is in cephalic presentation. Amniotic fluid is subjectively normal. | |Active motion is seen. Normal cord insertion is visualized. No | |anomalies on the remainder of limited survey. | | | |IMPRESSION - | |1. Single living intrauterine fetus in cephalic presentation. | |2. Normal anatomic survey. | |3. ultrasound size 8 days larger than dates. | | | |Dictated and Signed by: Richard Worthy MD | | Electronically signed: 02/13/2016 8:10 AM | + + + +---------+ + + | Performing | Address | City/State/Zipcode | Phone Number | | Organization | | | | + +---------+ + + | [facility] | | | | + +---------+ + + documented in this encounter Visit Diagnoses + + | Diagnosis | + + | Encounter for supervision of normal , unspecified , unspecified | | trimester | + + documented in this encounter"
--- OUTSIDE RECORDS SUMMARY | ~2019-12-06 | XMS | Encounter Summary ---
Demographics + + + | Address | [address] | | | [place] [address] | + + + | Home Phone | | + + + | Preferred Language | Unknown | + + + | Marital Status | | + + + | Mosque Affiliation | 1013 | + + + | Race | Unknown | + + + | Ethnic Group | Unknown | + + + Author + + + | Author | [facility] | | | and [place] | + + + | Organization | [facility] | | | and [place] | + + + | Address | Unknown | + + + | Phone | Unavailable | + + + Support + + + + + | Name | Relationship | Address | Phone | + + + + + | Trevin Rocha | ECON | [address] | | | | | [place] [address] | | + + + + + Care Team Providers + +------+ + | Care Coremaking Machine Setter Name | Role | Phone | + +------+ + PCP | Unavailable | + +------+ + Encounter Details +--------+ + + + + | Date | Type | Department | Care Team | Description | +--------+ + + + + | 01/20/ | Hospital | [facility] | | | | 2009 | Encounter | [facility] | | | | | CENTER [address] | | | | | | [place] | | | | | | [address] | | | | | | [phone] | | | +--------+ + + + [...]
--- OUTSIDE RECORDS SUMMARY | ~2019-12-06 | XMS | Clinical Summary ---
Demographics + + + | Address | [address] | | | [place] [address] | + + + | Home Phone | | + + + | Preferred Language | Unknown | + + + | Marital Status | | + + + | Buddhism Affiliation | 1013 | + + + | Race | Unknown | + + + | Ethnic Group | Unknown | + + + Author + + + | Author | [facility] | | | and [place] | + + + | Organization | [facility] | | | and [place] | + + + | Address | Unknown | + + + | Phone | Unavailable | + + + Support + + + + + | Name | Relationship | Address | Phone | + + + + + | Trevin Rocha | ECON | [address] | | | | | [place] [address] | | + + + + + Care Team Providers + +------+ + | Care Senior Investment Manager Name | Role | Phone | + +------+ + | Freddie Sears DO | PCP | | + +------+ + Allergies + + + + + + | Active Allergy | Reactions | Severity | Noted | Comments | | | | | Date | | + + + + + + | Azithromycin | Hives | Medium | 12/24/19 | | | | | | 19 | | + + + + + + Medications + + + +---------+------+------+-------+ | Medication | Sig | Dispensed | Refills | Star | End | Statu | | | | | | t | Date | s | | | | | | Date | | | + + + +---------+------+------+-------+ | acetaminophen | Take 1,000 mg by | | 0 | | | Activ | | (TYLENOL) 500 mg | mouth every 6 hours | | | | | e | | tablet | as needed for Pain. | | | | | | + + + +---------+------+------+-------+ Active Problems + + + | Problem | Noted Date | + + + | Rectal bleeding | 12/23/2018 | + + + + + | Overview: Added automatically from request for surgery | | [id number] | + + Immunizations + + + + | Name | Administration Dates | Next Due | + + + + | MMR, 2 DOSE | 12/10/2017 (Deferred: Other - Immune) | | | (PED/ADULT) | | | + + + + | TDAP, (ADOL/ADULT) | 12/10/2017 (Deferred: Other - Has | | | | previously received Tdap) | | + + + + Social History + [...] on file | | + + + Last Filed Vital Signs + + + [...] | | + + + + + Plan of Treatment + + +-------+ + | Health Maintenance | Due Date | Last | Comments | | | | Done | | + + +-------+ + | Vaccine: | | | | | Dtap/Tdap/Td (1 - | 3 | | | | Tdap) | | | | + + +-------+ + | Cervical Cancer | | | | | Screening (Pap) | 5 | | | + + +-------+ + | Vaccine: Influenza | | | | | (#1) | 0 | | | + + +-------+ + Results Not on filefrom Last 3 Months Insurance + +--------+ +--------+ +---------+--------+ | Payer | Benefi | Subscriber | Effect | Phone | Address | Type | | | t Plan | ID | leobardo | | | | | | / | | Dates | | | | | | Group | | | | | | + +--------+ +--------+ +---------+--------+ | [facility] | PHP | [id number] | 06/01/19 | [phone] | | PPO | | PLAN | PEBB | | 18-Pre | 5 | | | | | PROV | | sent | | | | | | CHOICE | | | | | | + +--------+ +--------+ +---------+--------+ | HEALTH | IHS | [id number] | | | | Indemn | | SERVICE | YELLOW | | 019-Pr | | | ity | | | HAWK | | esent | | | | + +--------+ +--------+ +---------+--------+ + +--------+ +--------+ + + | Guarantor Name | Accoun | Relation to | Date | Phone | Billing Address | | | t Type | Patient | of | | | | | | | | | | + +--------+ +--------+ + + | Kassy Rocha | Person | Self | [birth year] | [address] | | [place] | [place] | | 1995 | [phone] | [place] [address] | | | geovanny | | | 2 (Home) | | + +--------+ +--------+ + + Advance Directives + + + + + | Type | Date Recorded | Patient | Explanation | | | | Pipe Line Walker | | + + + + + | Power of | | | | | Tube Machine Operator | | | | + + + + + | Advance | 04/08/2016 8:48 | | | | Directive | AM | | | + + + + + + + + + + | Code Status | Date | Date | Comments | | | Activated | Inactivated | | + + + + + | Full Code | 12/10/2017 | 12/10/2017 | | | | 6:17 AM | 6:26 PM | | + + + + + + + + +---+ | | | | | + + + +---+ | Full Code | 05/08/2016 | 05/08/2016 | | | | 7:08 AM | 4:27 PM | | + + + +---+
--- OUTSIDE RECORDS SUMMARY | ~2019-12-06 | XMS | Encounter Summary ---
Demographics + + + | Address | [address] | | | [place] [address] | + + + | Home Phone | | + + + | Preferred Language | Unknown | + + + | Marital Status | | + + + | Advent Affiliation | 1013 | + + + | Race | Unknown | + + + | Ethnic Group | Unknown | + + + Author + + + | Author | [facility] | | | and [place] | + + + | Organization | [facility] | | | and [place] | + + + | Address | Unknown | + + + | Phone | Unavailable | + + + Support + + + + + | Name | Relationship | Address | Phone | + + + + + | Trevin Rocha | ECON | [address] | | | | | [place] [address] | | + + + + + Care Team Providers + +------+ + | Care Floor Cashier Name | Role | Phone | + +------+ + PCP | Unavailable | + +------+ + Encounter Details +--------+ + + + + | Date | Type | Department | Care Team | Description | +--------+ + + + + | 02/11/ | Abstract | [facility] | [facility] | | | 2011 | | Conversion Location | SR | | | | | [address] | | | | | | [place], [place] | | | | | | [address] | | | | | | [phone] | | | +--------+ + + + [...] + + + | Blood Pressure | 114/65 | 01/16/2010 12:00 AM | | | | | PDT | | + + + + + | Pulse | - | - | | + + + + + | Temperature | - | - | | + + + + + | Respiratory Rate | - | - | | + + + + + | Oxygen Saturation | - | - | | + + + + + | Inhaled Oxygen | - | - | | | Concentration | | | | + + + + + | Weight | 68 kg (150 lb) | 06/20/2010 12:00 AM | | | | | PST | | + + + + + | Height | 170.2 cm (5' 7") | 11/15/2009 12:00 AM | | | | | PDT | | + + + + + | Body Mass Index | 23.4 | 11/15/2009 12:00 AM | | | | | PDT | | + + + + + documented in this encounter Plan of Treatment Not on filedocumented as of this encounter Visit Diagnoses Not on filedocumented in this encounter
[~2019-12-06 15:24] MED LIST: IBUPROFEN400 MG PO
--- NOTE | 2019-12-07 10:32 | PR ---
[facility] [address] [address] [facility] [place], [place] [address] Signed Progress Notes IP Datetime Report Generated by CPN: 12/07/2019 10:32 PROGRESS NOTES: [id number] Impression: Normal progression of labor Procedures: Artificial ROM Plan: Continue present management; Anticipate Vaginal Delivery VITAL SIGNS: [id number] Vital Signs: Reviewed; Within Normal Limits EXAM: [id number] Dilatation: 4.0 Effacement: 50 Station: -2 Uterine Contractions: every 2-4 minutes MEMBRANES: [id number] Membrane Status: Ruptured Amniotic Fluid Color: Clear ROM Note: AROM, with small amount clear fluid returned Fetus A: [id number] FHR Baseline: 125 Variability: Moderate 6-25bpm Accelerations: 15X15 Decelerations: Variable Presentation: Vertex Fetus B: [id number] Signing Physician: Val Solitario MD Copies: ~ *Electronically Signed* 12/07/19 1032 VAL SOLITARIO MD PATIENT NAME: SAUL GREENFIELD PROGRESS NOTE DATE OF : [birth year] PHYSICIAN: VAL SOLITARIO MD RPT #: [id number] REPORT IS CONFIDENTIAL AND NOT TO BE RELEASED WITHOUT AUTHORIZATION
--- NOTE | 2019-12-07 12:58 | PR ---
[facility] [address] [facility] [place], [place] [address] Signed Progress Notes IP Datetime Report Generated by CPN: 12/07/2019 12:58 PROGRESS NOTES: [id number] Impression: Normal progression of labor Procedures: Intrauterine Pressure Catheter Plan: Continue present management; Anticipate Vaginal Delivery VITAL SIGNS: [id number] Vital Signs: Reviewed; Within Normal Limits EXAM: [id number] Dilatation: 6.0 Effacement: 90 Station: -2 Uterine Contractions: every 2-3 minutes MEMBRANES: [id number] Membrane Status: Ruptured Amniotic Fluid Color: Clear ROM Note: AROM, with small amount clear fluid returned Comments: Comfortable with Epidural, some decels; IUPC inserted top better evaluate Fetus A: [id number] FHR Baseline: 125 Variability: Moderate 6-25bpm Accelerations: 15X15 Decelerations: Variable Presentation: Vertex Fetus B: [id number] Signing Physician: Val Solitario MD Copies: ~ *Electronically Signed* 12/07/19 1258 VAL SOLITARIO MD PATIENT NAME: SAUL GREENFIELD PROGRESS NOTE DATE OF : [birth year] PHYSICIAN: VAL SOLITARIO MD [facility] #: [id number] REPORT IS CONFIDENTIAL AND NOT TO BE RELEASED WITHOUT AUTHORIZATION
--- NOTE | 2019-12-07 13:44 | PR ---
[facility] [address] [facility] [place], [place] [address] Signed Progress Notes IP Datetime Report Generated by CPN: 12/07/2019 13:44 PROGRESS NOTES: [id number] Impression: Normal progression of labor Procedures: Intrauterine Pressure Catheter Plan: Continue present management; Anticipate Vaginal Delivery VITAL SIGNS: [id number] Vital Signs: Reviewed; Within Normal Limits EXAM: [id number] Dilatation: 9.0 Effacement: 90 Station: 0 Uterine Contractions: every 2-4 minutes MEMBRANES: [id number] Membrane Status: Ruptured Amniotic Fluid Color: Clear ROM Note: AROM, with small amount clear fluid returned Comments: Comfortable with Epidural, try different positions with decels, expect delivery soon. Fetus A: [id number] FHR Baseline: 120 Variability: Moderate 6-25bpm Accelerations: 15X15 Decelerations: Variable Presentation: Vertex Comments on Fetus A: occasional deep variable decels Fetus B: [id number] Signing Physician: Val Solitario MD Copies: ~ *Electronically Signed* 12/07/19 1344 VAL SOLITARIO MD PATIENT NAME: SAUL GREENFIELD PROGRESS NOTE DATE OF : [birth year] PHYSICIAN: VAL SOLITARIO MD RPT #: [id number] REPORT IS CONFIDENTIAL AND NOT TO BE RELEASED WITHOUT AUTHORIZATION
--- NOTE | 2019-12-08 10:03 | PR ---
[facility] [address] [facility] [place], [place] [address] Signed PP Progress Notes Datetime Report Generated by CPN: 12/08/2019 10:03 SUBJECTIVE: [id number] Pain: Within normal limits Nausea/Vomiting: Denies Vital Signs: [id number] Vital Signs: Reviewed; Within Normal Limits Notable Details: PP Hgb/Hct = 12.6/36.5 EXAM: [id number] Abdomen/Uterus: Normal Lochia: Normal Extremities: Normal IMPRESSION/PLAN/PROCEDURES: [id number] Impression: Normal progression Plan: Continue present management Procedures: None Progress Notes: Doing well, without complaint Signing Physician: Val Solitario MD Copies: ~ *Electronically Signed* 12/08/19 1003 VAL SOLITARIO MD PATIENT NAME: SAUL GREENFIELD PROGRESS NOTE DATE OF : [birth year] PHYSICIAN: VAL SOLITARIO MD RPT #: [id number] REPORT IS CONFIDENTIAL AND NOT TO BE RELEASED WITHOUT AUTHORIZATION
--- NOTE | 2019-12-09 09:06 | PR ---
[facility] [address] [facility] [place] [address] Signed PP Progress Notes Datetime Report Generated by CPN: 12/09/2019 09:06 SUBJECTIVE: [id number] Pain: Within normal limits Nausea/Vomiting: Denies Vital Signs: M1026815 Vital Signs: Reviewed; Within Normal Limits Notable Details: PP Hgb/Hct = 12.6/36.5 EXAM: [id number] Abdomen/Uterus: Normal Lochia: Normal Extremities: Normal IMPRESSION/PLAN/PROCEDURES: J8322694 Impression: Normal progression Plan: Discharge Procedures: None Progress Notes: Doing well, ready to go home. Signing Physician: Val Solitario MD Copies: ~ *Electronically Signed* 12/09/19905 VAL SOLITARIO MD PATIENT NAME: SAUL GREENFIELD PROGRESS NOTE DATE OF : [birth year] PHYSICIAN: VAL SOLITARIO MD RPT #: [id number] REPORT IS CONFIDENTIAL AND NOT TO BE RELEASED WITHOUT AUTHORIZATION
--- NOTE | 2019-12-09 09:07 | PR ---
[facility] [address] [facility] [place] [address] Signed PP Progress Notes Datetime Report Generated by CPN: 12/09/2019 09:07 SUBJECTIVE: [id number] Pain: Within normal limits Nausea/Vomiting: Denies Vital Signs: R8786287 Vital Signs: Reviewed; Within Normal Limits Notable Details: PP Hgb/Hct = 12.6/36.5 EXAM: [id number] Abdomen/Uterus: Normal Lochia: Normal Extremities: Normal IMPRESSION/PLAN/PROCEDURES: Y4176675 Impression: Normal progression Plan: Discharge Procedures: None Progress Notes: Doing well, ready to go home. Signing Physician: Val Solitario MD Copies: ~ *Electronically Signed* 12/09/19906 VAL SOLITARIO MD PATIENT NAME: SAUL GREENFIELD PROGRESS NOTE DATE OF : [birth year] PHYSICIAN: VAL SOLITARIO MD RPT #: [id number] REPORT IS CONFIDENTIAL AND NOT TO BE RELEASED WITHOUT AUTHORIZATION
== END 2019-12-09 14:15 | disposition home or self-care (01) | DRG 807 ==
LOC: FBC 12-07 00:01
PROVIDERS: ADMIT General Practice
PROC: 10E0XZZ Delivery of Products of Conception, External Approach (ICD-10-PCS; principal; 2019-12-07)
PROC: 3E0P7VZ Introduction of Hormone into Female Reproductive, Via Natural or Artificial Opening (ICD-10-PCS; 2019-12-07)
PROC: 10907ZC Drainage of Amniotic Fluid, Therapeutic from Products of Conception, Via Natural or Artificial Opening (ICD-10-PCS; 2019-12-07)
PROC: 10H07YZ Insertion of Other Device into Products of Conception, Via Natural or Artificial Opening (ICD-10-PCS; 2019-12-07)
PROC: 00HU33Z Insertion of Infusion Device into Spinal Canal, Percutaneous Approach (ICD-10-PCS; 2019-12-07)
PROC: 3E0R3BZ Introduction of Anesthetic Agent into Spinal Canal, Percutaneous Approach (ICD-10-PCS; 2019-12-07)
DX: O48.0 Post-term pregnancy (principal); Z37.0 Single live birth; Z3A.40 40 weeks gestation of pregnancy; O76 Abnormality in fetal heart rate and rhythm complicating labor and delivery; O99.824 Streptococcus B carrier state complicating childbirth
CPT/HCPCS: 01961; 36415; 85027; A9270; J2540; J2590; J2795; J7121

== ENCOUNTER 2020-10-28 19:27 | Emergency (ER) | payer BC, OTHER ==
[~2020-10-28] VITALS: Ht 175.3 cm; Wt 104.3 kg
== END 2020-10-28 20:28 | disposition home or self-care (01) ==
LOC: ED 19:27
PROC: 0HQGXZZ Repair Left Hand Skin, External Approach (ICD-10-PCS; principal; 2020-10-28)
DX: S61.215A Laceration without foreign body of left ring finger without damage to nail, initial encounter (principal); W45.8XXA Other foreign body or object entering through skin, initial encounter
CPT/HCPCS: 12001; 99282-25

== ENCOUNTER 2024-04-13 18:57 | Emergency (ER) | payer BC, OTHER ==
[~2024-04-13] VITALS: Ht 175.3 cm; Wt 106.7 kg
[~2024-04-13 18:57] MED LIST changes: +ONDANSETRON ODT4 MG PO
[2024-04-13] MEDS ORDERED: SKYRIZI PE150 MG/1 M SUB-Q (19:14)
[2024-04-13] MEDS ORDERED: NAPROXEN500 MG PO (19:14)
[2024-04-13 21:13] VITALS: BP 111/73
== END 2024-04-13 21:14 | disposition home or self-care (01) ==
LOC: ED 18:57
DX: S93.401A Sprain of unspecified ligament of right ankle, initial encounter (principal); X58.XXXA Exposure to other specified factors, initial encounter; Z79.899 Other long term (current) drug therapy
CPT/HCPCS: 73590; 93971

== ENCOUNTER 2025-04-19 05:42 | Day surgery (SDC) | payer BC ==
[~2025-04-19] VITALS: Ht 172.7 cm; Wt 109.0 kg
[~2025-04-19 05:42] MED LIST changes: +LACTATED RINGER'S 1,000 ML IV SCH; +NAPROXEN500 MG PO; +SKYRIZI PE150 MG/1 M SUB-Q
[2025-04-19] MEDS ORDERED: DOXYCYCLINE HY100 MG PO (06:08)
[2025-04-19 06:09] VITALS: BP 129/78
[2025-04-19] MEDS ORDERED: LIDOCAINE HCL 2% 20 ML MDV ONE (06:20)
[2025-04-19] MEDS ORDERED: Ropivacaine HCl 0.5% 30 ML VIAL ONE (06:20)
[2025-04-19] MEDS ORDERED: DEXAMETHASONE SOD PHOS 4 MG/ML VIAL ONE (06:20)
[2025-04-19] MEDS ORDERED: LIDOCAINE HCL 2% 5 ML SDV ONE (06:53)
[2025-04-19] MEDS ORDERED: LIDOCAINE HCL 1% 5 ML SDV INJ ONE (07:00)
[2025-04-19] MEDS ORDERED: IBLOOD GLUCOSE TEST STRIP 1 EA TEST VI PRN ×2 (07:00→07:45)
[2025-04-19] MEDS ORDERED: KETOROLAC TROMETHAMINE 30 MG/ML VIAL ONE (07:38)
[2025-04-19] MEDS ORDERED: fentaNYL citrate 50 MCG/ML SDV IV PRN (07:45)
[2025-04-19] MEDS ORDERED: NALOXONE HCL 0.4 MG SYR IV PRN (07:45)
[2025-04-19] MEDS ORDERED: PROCHLORPERAZINE EDISYLATE 10 MG/2 ML VIAL IV PRN (07:45)
[2025-04-19] MEDS ORDERED: HYDROmorphone HCL 1 MG/ML SYR IV PRN (07:45)
--- NOTE | 2025-04-19 08:03 | NUR ---
04/19/25 0803 Macie White 0754: PT ARRIVES TO PACU REACTIVE TO STIMULI. REPORT RECEIVED FROM ACCOUNTS PAYABLES CLERK AND SOURCING INTERN. CHUY 0755: PT WAKES SPONTANESOULY, DENIES PAIN OR NAUSEA AT THIS TIME.
[2025-04-19 08:16] VITALS: BP 123/73
--- NOTE | 2025-04-20 15:07 | OR ---
[facility] [address] [place], [place] [address] Signed DATE OF OPERATION: 04/19/2025 SURGEON: Lyn Daniels DPM PREOPERATIVE DIAGNOSIS: Ganglion cyst dorsal left foot. POSTOPERATIVE DIAGNOSIS: Ganglion cyst dorsal left foot. PROCEDURES PERFORMED: Excision of ganglion cyst. HAND SPRING FORMER: Francis Fu DPM NURSE DIRECTOR NEWS: Francis Michael. ANESTHESIA: Local with MAC consistent of approximately 10 mL of 1:1 mix of 0.5% ropivacaine plain and 2% lidocaine plain. ESTIMATED BLOOD LOSS: Less than 3 mL or minimal. HEMOSTASIS: With an ankle tourniquet. MATERIALS UTILIZED: 4-0 Vicryl, 5-0 nylon. PROCEDURE IN DETAIL: The patient was brought into the operating room, placed upon the operating table in the supine position. Following IV sedation, the above local anesthesia was administered about the patient's left dorsal mid foot region. The foot was then scrubbed, prepped, and draped in the usual sterile technique. An Esmarch bandage was then utilized to exsanguinate the patient's left foot, and then left wrapped around the ankle to act as a tourniquet. Attention was then directed to the first cuneiform region where approximately a 3 cm semicurved incision was performed over the dorsal and medial aspect Electronically Signed By: LYN DANIELS DPM 04/20/25 1507 PATIENT NAME: SAUL GREENFIELD OPERATIVE REPORT DATE OF : [birth year] REPORT #: [id number] PHYSICIAN: LYN DANIELS DPM PCP: TD [place] DO REPORT IS CONFIDENTIAL AND NOT TO BE RELEASED WITHOUT AUTHORIZATION [facility] [address] [place], [place] [address] Signed of the mid foot. The incision was then deepened down through subcutaneous tissue. Please note at this time lysis of the ganglion cyst occurred ascending lightly viscous clear fluid projecting upwards approximately 12 inches above the surgical site. The soft tissue was then freed from around the ganglion pocket region. Abnormal soft tissue was identified. This was excised utilizing forceps and tenotomy scissors. Light cautery at the base of the ganglion cyst and surrounding tissue was also performed. The deep soft tissue was closed and reapproximated utilizing 4-0 Vicryl and integument was reapproximated and coapted utilizing 5-0 nylon. Postoperative injection consisting of 1 mL of dexamethasone phosphate mixed with 5 mL of 0.5% ropivacaine was then injected about the dorsal and midfoot region. The postoperative dressing was then applied consisting of Adaptic, Betadine-soaked gauze, fluff gauze, rolled gauze, and Coban. The ankle tourniquet was removed. Prompt hyperemic response was noted to all digits of the patient's left foot. The patient had tolerated both the procedure and the anesthesia well and following a period of postoperative recovery the patient was discharged to home with both oral and written instructions. Lyn Daniels DPM TM/MODL /[id number] Copies: ~ Electronically Signed By: LYN DANIELS DPM 04/20/25 1507 PATIENT NAME: SAUL GREENFIELD OPERATIVE REPORT DATE OF : [birth year] REPORT #: [id number] PHYSICIAN: LYN DANIELS DPM PCP: TD [place] DO REPORT IS CONFIDENTIAL AND NOT TO BE RELEASED WITHOUT AUTHORIZATION
--- NOTE | 2025-04-24 16:14 | PATH ---
[facility] [address] [place], [place] [address] Signed SPECIMEN(S): A GANGLION CYST REMNANT SPECIMEN SOURCE: A. GANGLION CYST REMNANT CLINICAL HISTORY: Left foot soft tissue lump. FINAL PATHOLOGIC DIAGNOSIS: Soft tissue from left foot: - Benign ganglion cyst. - No abscess, granuloma, or malignancy identified. [facility] MICROSCOPIC EXAMINATION: Histologic sections of all submitted blocks are examined by light microscopy. These findings, together with the gross examination, support the pathologic diagnosis. GROSS DESCRIPTION: The specimen, labeled and designated "Aj, ganglion cyst remanent," is received in formalin and consists of multiple fragments of white-hughes yellow soft tissue measuring 2.5 x 2.2 x 0.4 cm in aggregate. The specimens are entirely submitted in cassette (A1). AB (under the direct supervision of a pathologist) The Gross Description was prepared using a voice recognition system. The report was reviewed for accuracy; however, sound-alike word errors, addition and/or deletions may occur. If there is any question about this report, please contact Client Services. ADDITIONAL NOTES: Immunohistochemical and/or in situ hybridization studies if performed in this case included appropriate positive controls that reacted as expected. This test was developed and its performance characteristics determined by [facility]. It has not been cleared or approved by the U.S. Food and Drug Administration. The FDA has determined that such clearance or approval is not necessary. This test is used for clinical purposes. It should not be regarded as investigational or for research. [facility] is certified under the Clinical Laboratory Improvement Amendments of 1988 (CLIA) as qualified to perform high complexity clinical PATIENT NAME: SAUL GREENFIELD PATHOLOGY DATE OF : [birth year] REPORT #: [id number] PHYSICIAN: JULI PATHOLOGY PCP: TD [place] DO REPORT IS CONFIDENTIAL AND NOT TO BE RELEASED WITHOUT AUTHORIZATION [address] [place], [place] [address] Signed laboratory testing. PERFORMING LABORATORY: Technical component was performed by [facility], [address] [place] [id number] (CLIA# [id number]). Professional interpretation was performed by [facility] - [facility], [address] [place] [id number] (CLIA#: [id number]). Diagnostician: Jose L Cameron MD Pathologist Electronically Signed 04/24/2025 Copies: ~ PATIENT NAME: SAUL GREENFIELD PATHOLOGY DATE OF : [birth year] REPORT #: [id number] PHYSICIAN: JULI PATHOLOGY PCP: TD [place] DO REPORT IS CONFIDENTIAL AND NOT TO BE RELEASED WITHOUT AUTHORIZATION
== END 2025-04-19 08:28 | disposition home or self-care (01) ==
LOC: DS 05:42
PROVIDERS: ATTEND Podiatrist Foot & Ankle Surgery
PROC: 0LBW0ZZ Excision of Left Foot Tendon, Open Approach (ICD-10-PCS; principal; 2025-04-19 07:00)
DX: M67.472 Ganglion, left ankle and foot (principal)
CPT/HCPCS: 01470; J1100; J1885; J2003; J2405; J2704; J2795; J7121